=== PATIENT | female | born 1935 | race Caucasian/White ===

== ENCOUNTER 2021-01-06 05:05 | Outpatient (REF) | payer SELFPAY ==
[2021-01-06 05:26] LABS: Hematocrit 42.7 % (37-47); Hemoglobin 13.7 g/dl (12.0-16.0); Mean Corpuscular HGB Conc 32.1 g/dl (31.0-35.0); Mean Corpuscular Hemoglobin 29.4 pg (27.0-33.0); Mean Corpuscular Volume 91.6 fL (80-98); Mean Platelet Volume 9.9 fL (9.4-12.3); Platelet Count 196 X10*3/uL (160-400); Red Blood Count 4.66 X10*6/uL (4.20-5.50); Red Cell Distribution Width 16.3 % (11.0-16.0); White Blood Count 5.1 X10*3/uL (4.8-10.8)
[2021-01-06 06:06] LABS: Alanine Aminotransferase 29 U/L (0-31); Albumin Level 2.4 g/dL (3.5-5.0); Alkaline Phosphatase 118 U/L (39-117); Aspartate Amino Transferase 45 U/L (5-31); Bilirubin Total 0.8 mg/dL (0.0-1.0); Blood Urea Nitrogen 46 mg/dL (9-16); Calcium 8.7 mg/dL (8.4-10.2); Estimated Glomerular Filt Rate 39; Glucose Random 89 mg/dL (60-115); Total Protein 5.5 g/dL (6.5-8.0)
[2021-01-06 06:20] LABS: Anion Gap 10 (12-20); Carbon Dioxide 34 mmol/L (22-29); Chloride 102 mmol/L (96-108); Sodium 142 mmol/L (135-145)
== END 2021-01-06 05:06 | disposition home or self-care (01) ==
LOC: HO.MMNH1L 05:05
PROVIDERS: Visit Provider Family Medicine
DX: E78.5 Hyperlipidemia, unspecified (principal); F41.9 Anxiety disorder, unspecified
CPT/HCPCS: 36415; 80053; 85027

== ENCOUNTER 2021-01-09 00:37 | Outpatient (REF) | payer SELFPAY ==
[2021-01-09 06:10] LABS: Hemoglobin 14.5 g/dl (12.0-16.0); Mean Corpuscular HGB Conc 32.2 g/dl (31.0-35.0); Mean Corpuscular Hemoglobin 29.4 pg (27.0-33.0); Mean Corpuscular Volume 91.1 fL (80-98); Mean Platelet Volume 10.7 fL (9.4-12.3); Platelet Count 203 X10*3/uL (160-400); Red Blood Count 4.94 X10*6/uL (4.20-5.50); Red Cell Distribution Width 16.6 % (11.0-16.0); White Blood Count 6.2 X10*3/uL (4.8-10.8)
[2021-01-09 06:30] LABS: Anion Gap 10 (12-20); Blood Urea Nitrogen 33 mg/dL (9-16); Calcium 8.4 mg/dL (8.4-10.2); Carbon Dioxide 32 mmol/L (22-29); Chloride 103 mmol/L (96-108); Estimated Glomerular Filt Rate 47; Glucose Random 146 mg/dL (60-115); Potassium 4.1 mmol/L (3.3-5.1); Sodium 141 mmol/L (135-145)
== END 2021-01-09 00:38 | disposition home or self-care (01) ==
LOC: HO.MMNH1L 00:37
PROVIDERS: Visit Provider Family Medicine
DX: F41.9 Anxiety disorder, unspecified (principal); E78.5 Hyperlipidemia, unspecified
CPT/HCPCS: 36415; 80048; 85027

== ENCOUNTER 2021-03-27 | Outpatient (REF) | payer MEDICARE, MEDICAID, SELFPAY ==
[2021-03-27 06:22] LABS: Hematocrit 39.2 % (37-47); Hemoglobin 12.7 g/dl (12.0-16.0); Mean Corpuscular HGB Conc 32.4 g/dl (31.0-35.0); Mean Corpuscular Hemoglobin 33.4 pg (27.0-33.0); Mean Corpuscular Volume 103.2 fL (80-98); Mean Platelet Volume 10.2 fL (9.4-12.3); Platelet Count 238 X10*3/uL (160-400); Red Cell Distribution Width 18.3 % (11.0-16.0); White Blood Count 4.5 X10*3/uL (4.8-10.8)
[2021-03-27 07:06] LABS: Anion Gap 15 (12-20); Blood Urea Nitrogen 16 mg/dL (9-16); Calcium 8.8 mg/dL (8.4-10.2); Carbon Dioxide 23 mmol/L (22-29); Chloride 108 mmol/L (96-108); Estimated Glomerular Filt Rate 50; Glucose Random 179 mg/dL (60-115); Sodium 142 mmol/L (135-145)
== END 2021-03-27 00:01 | disposition home or self-care (01) ==
LOC: HO.MMNH1L
PROVIDERS: Visit Provider Family Medicine
DX: E11.9 Type 2 diabetes mellitus without complications (principal); I10 Essential (primary) hypertension
CPT/HCPCS: 36415; 80048; 85027

== ENCOUNTER 2021-04-03 00:31 | Outpatient (REF) | payer SELFPAY | END 2021-04-03 00:32 | disposition home or self-care (01) | LOC: HO.MMNH1L 00:31 | PROVIDERS: Visit Provider Family Medicine | DX: Z13.89 Encounter for screening for other disorder (principal) ==

== ENCOUNTER 2021-04-11 19:47 | Inpatient (IN) | payer MEDICARE, MEDICAID, SELFPAY ==
--- NOTE | ~2021-04-11 | CT_ITS ---
EXAMINATION: CT HEAD WITHOUT CONTRAST CT CERVICAL SPINE WITHOUT CONTRAST CLINICAL INFORMATION: Fall. On blood thinners. COMPARISON: None. TECHNIQUE: Imaging was performed from the skull base to vertex without intravenous administration of contrast. In addition, helical noncontrast CT imaging was acquired through the cervical spine and source images were reviewed along with axial reconstructions and sagittal and coronal MPRs. [This CT examination was performed using dose optimization techniques as appropriate, variously including the following: *Automated exposure control *Adjustment of mA and/or kV according to patient size (this includes techniques or standardized protocols for targeted exams where dose is matched to indication/reason for exam; i.e. extremities or head) *Use of iterative reconstruction technique] DLP: 791 mGy-cm FINDINGS: HEAD: No intracranial mass, hemorrhage, or midline shift is visualized. There is generalized global volume loss. There is marked prominence of the ventricles and the sulci . There is mild hypodensity of the periventricular white matter due to chronic small vessel ischemic disease. Small lacunar infarct in left periventricular white matter. There are vascular calcifications of the internal carotid arteries bilaterally. . No extra-axial collections are identified. The paranasal sinuses and mastoid air cells are well aerated. CERVICAL SPINE: There is no evidence of acute cervical spine fracture. Vertebral bodies remain normal in height. Cervical vertebrae have normal alignment. There is multilevel degenerative spondylosis of the cervical spine with disc height narrowing and endplate spurs and facet joint arthrosis No pre- or paravertebral soft tissue abnormality is identified. Limited assessment of the lung apices is unremarkable. CT/CT cervical spine wo con IMPRESSION: 1. No acute intracranial pathology. 2. No CT evidence of acute cervical spine fracture or traumatic subluxation
--- NOTE | ~2021-04-11 | XR_ITS ---
EXAMINATION: XR FOOT, RIGHT CLINICAL INFORMATION: Right dorsal surface foot bullae. COMPARISON: None TECHNIQUE: AP, lateral, and oblique views of the right foot. FINDINGS: There is a large dorsal foot cutaneous soft tissue focal swelling there is no underlying fracture or dislocation. The ankle mortise and subtalar joints are normal. There is a small calcaneal heel and retrocalcaneal enthesophytes. XR/XR foot RT min 3V IMPRESSION: Large bulla dorsal distal foot. No underlying bony abnormality. Small calcaneal heel and retrocalcaneal enthesophyte.
--- NOTE | ~2021-04-11 | XR_ITS ---
EXAMINATION: XR CHEST CLINICAL INFORMATION: Rales and edema. COMPARISON: Chest 04/18/2021. TECHNIQUE: Frontal view of the chest was obtained. FINDINGS: There is mild cardiomegaly with normal pulmonary vascularity. The lungs are hypoexpanded with bandlike atelectasis and left midlung and right lower lobe. There is solitary pacer electrode in right ventricle. No gross bony abnormality seen. XR/XR chest 1V IMPRESSION: Cardiomegaly. Bandlike atelectasis left midlung and likely compressive atelectasis right lower lobe.
--- NOTE | ~2021-04-11 | XR_ITS ---
EXAMINATION: CHEST, PELVIS AND RIGHT HIP CLINICAL INFORMATION: Fall with right leg rotation and short COMPARISON: None TECHNIQUE: Single view chest, single view pelvis with 2 additional views right FINDINGS: Pelvis and right hip: There is a transcervical fracture of the surgical neck of the right femur with varus angulation of the distal fracture fragment and superior subluxation. The femoral acetabular joint appears normal. Marked degenerative changes present at the pubic symphysis. No other fractures are seen. Chest: There is marked cardiac enlargement. Bilateral small pleural effusions may be present. A single lead pacemaker is present in the left chest with its tip at the right ventricular apex. No evidence of CHF. Left basilar atelectasis/collapse is present. Linear atelectasis noted in the left midlung. Marked degenerative changes present in the spine with compression fractures seen with vertebroplasty cement at T10. No acute osseous injury is seen. Probable chronic fracture right humerus. XR/XR hip RT min 2V IMPRESSION: 1. Transcervical fracture right femoral neck as described. 2. Cardiomegaly with possible bilateral pleural effusions and retrocardiac density with left mid lung atelectasis 3. Probable chronic fracture right humerus, incompletely imaged. If patient has symptoms, shoulder radiographs are recommended.
--- NOTE | ~2021-04-11 | XR_ITS ---
EXAMINATION: CHEST, PELVIS AND RIGHT HIP CLINICAL INFORMATION: Fall with right leg rotation and short COMPARISON: None TECHNIQUE: Single view chest, single view pelvis with 2 additional views right FINDINGS: Pelvis and right hip: There is a transcervical fracture of the surgical neck of the right femur with varus angulation of the distal fracture fragment and superior subluxation. The femoral acetabular joint appears normal. Marked degenerative changes present at the pubic symphysis. No other fractures are seen. Chest: There is marked cardiac enlargement. Bilateral small pleural effusions may be present. A single lead pacemaker is present in the left chest with its tip at the right ventricular apex. No evidence of CHF. Left basilar atelectasis/collapse is present. Linear atelectasis noted in the left midlung. Marked degenerative changes present in the spine with compression fractures seen with vertebroplasty cement at T10. No acute osseous injury is seen. Probable chronic fracture right humerus. XR/XR chest 1V IMPRESSION: 1. Transcervical fracture right femoral neck as described. 2. Cardiomegaly with possible bilateral pleural effusions and retrocardiac density with left mid lung atelectasis 3. Probable chronic fracture right humerus, incompletely imaged. If patient has symptoms, shoulder radiographs are recommended.
--- NOTE | ~2021-04-11 | XR_ITS ---
EXAMINATION: XR CHEST CLINICAL INFORMATION: Dyspnea COMPARISON: Previous chest x-ray 04/11/2020 TECHNIQUE: Frontal view of the chest was obtained. FINDINGS: The cardiac silhouette is enlarged but stable. There is a left subclavian single chamber pacemaker that appears unchanged. There is pulmonary venous redistribution, increased perihilar attenuation and bilateral pleural effusions suggestive of mild CHF. There is atelectasis or infiltrate at the left lung base that is unchanged. There is a right humeral neck fracture that appears unchanged. There are kyphoplasty changes of the lower thoracic spine. XR/XR chest 1V IMPRESSION: Probable mild CHF. Atelectasis/consolidation at the left lung base unchanged.
[2021-04-11 19:58] VITALS: BP 109/54; BP 99/48; PULSE 75; PULSE 76; RESP 12; O2SAT 94; BMI 24.8
[2021-04-11 20:16] VITALS: TEMP 36.7
--- NOTE | 2021-04-11 20:39 | PC.NURSE ---
This RN contacting [facility] for further information of fall on Saturday. This RN speaking with Mgean. Per Megan, pt came to LTC from another unit @ [facility] 2 days ago. Per Megan, she was told pt fell out of bed on Saturday @ 0500 but unknown how long she was on the floor for and/or what caused the fall. Per Megan, pt is usually able to stand/pivot but today was unable to do so so they XRayed her right leg and found her femur to be fractured. Per Megan, pt was not evaluated after the fall on Saturday. Per Megan, despite being on the LTC unit for 2 days, staff is unsure how pt communicates. Per staff, they don't know if pt has been verbal at all but states she makes gestures for example when she is ready to go to bed. This RN discussing fluid collection to right foot, per Megan, pt was noticed yesterday and she was started on Diuretics for it. This RN asking to speak with supervisor carbon paper coating to obtain more information from pt, per Megan, no supervisor carbon paper coating available to speak to.
--- NOTE | 2021-04-11 20:49 | PC.NURSE ---
Off to XRay/CT on hospital bed.
--- NOTE | 2021-04-11 20:53 | PC.NURSE ---
Contact: Irais Caro [phone]. Contact not answering phone, this RN left a messagee.
--- NOTE | 2021-04-11 20:57 | PC.NURSE ---
This RN contacting daughter Irais. Per daughter, pt was supposed to be transported to [facility], unknown why/how pt was transferred to [facility]. Per daughter, pt had a stroke in November and since then, has periods of confusion but does understand Citizen [place]. Per daughter, additional contact information, Dr Toan Marino (son in law) [phone].
--- NOTE | 2021-04-11 21:09 | PC.NURSE ---
Pt returns from XRay/CT on hospital bed without incident.
--- NOTE | 2021-04-11 21:30 | ECG_ITS ---
Test Reason : FALL Blood Pressure : / mmHG Vent. Rate : 076 BPM Atrial Rate : 069 BPM P-R Int : 000 ms QRS Dur : 070 ms QT Int : 408 ms P-R-T Axes : 000 -27 157 degrees QTc Int : 459 ms Atrial fibrillation with occasional ventricular-paced complexes Inferior infarct , age undetermined Anterior infarct , age undetermined Abnormal ECG No previous ECGs available Referred By: Thang Loya Electronically Signed By:TOMÁS TAYLOR
--- NOTE | 2021-04-11 21:39 | PHA.MEDREC ---
Pharmacy Consult ? Medication Reconciliation Pharmacy has completed the medication reconciliation. There are no remarkable issues for provider's attention. Patient arrived from [facility] with a medication list. Anjana Kirk, JoseD
--- NOTE | 2021-04-11 21:47 | PC.NURSE ---
IV established, labs obtained. MD at bedside for primary eval. technical programs manager at bedside for EKG. Plan for admission.
[2021-04-11 21:52] LABS: MANUAL DIFF FLAG NO
[2021-04-11 21:54] LABS: Basophils Percent Auto 0.6 % (0-2); Eosinophils Absolute Auto 0.1 X10*3/uL (0.0-0.4); Eosinophils Percent Auto 1.7 % (0-4); Hematocrit 33.3 % (37-47); Hemoglobin 10.7 g/dl (12.0-16.0); Imm Gran Abs Auto 0.01 X10*3/uL (0.00-0.03); Imm Gran Pct Auto 0.2 % (0.0-0.4); Lymphocytes Percent Auto 19.8 % (20-40); Mean Corpuscular HGB Conc 32.1 g/dl (31.0-35.0); Mean Corpuscular Hemoglobin 33.1 pg (27.0-33.0); Mean Corpuscular Volume 103.1 fL (80-98); Monocytes Absolute Auto 0.6 X10*3/uL (0.1-1.2); Monocytes Percent Auto 11.3 % (2-11); Neutrophils Absolute Auto 3.5 X10*3/uL (2.0-8.3); Neutrophils Percent Auto 66.4 % (45-73); Platelet Count 226 X10*3/uL (160-400); Red Blood Count 3.23 X10*6/uL (4.20-5.50); Red Cell Distribution Width 16.7 % (11.0-16.0); White Blood Count 5.2 X10*3/uL (4.8-10.8)
[2021-04-11 21:59] LABS: INTERNATIONAL NORM RATIO 2.4 (0.9-1.1); Prothrombin Time 27.7 SEC (9.9-13.0)
--- NOTE | 2021-04-11 22:01 | ED_ITS ---
HPI - Fall General Chief Complaint: Fall Stated Complaint: FALL/FEMUR FX Time Seen by Provider: 04/11/21 21:29 Source: RN notes reviewed Mode of arrival: EMS Limitations: altered mental status and other History of Present Illness HPI Narrative: Patient 85 years old from half-way on Eliquis apparently had unwitnessed fall 2 days ago today when they tried to stand her up she complained of pain in the right hip area x-ray was done which showed hip fracture. Not known whether she had any head injury or not no open wounds no change in sensorium patient understand Bengali but speaks only Tunisian Related Data Home Medications Medication Instructions Recorded Confirmed acetaminophen 500 mg tablet 500 mg PO Q8H PRN 04/11/21 04/11/21 apixaban 5 mg tablet (Eliquis) 5 mg PO BID 04/11/21 04/11/21 bisoprolol fumarate 5 mg tablet 1.25 mg PO DAILY 04/11/21 04/11/21 calcium carbonate 500 mg calcium 500 mg PO BID 04/11/21 04/11/21 (1,250 mg) tablet cholecalciferol (vitamin D3) 25 25 mcg PO DAILY 04/11/21 04/11/21 mcg (1,000 unit) tablet (Vitamin D3) insulin lispro 100 unit/mL See Protocol 04/11/21 04/11/21 subcutaneous pen levothyroxine 112 mcg tablet 112 mcg PO DAILY 04/11/21 04/11/21 magnesium oxide 400 mg PO BID 04/11/21 04/11/21 metformin 500 mg tablet 500 mg PO BID 04/11/21 04/11/21 miconazole nitrate 2 % topical 1 appl TOPICAL BID 04/11/21 04/11/21 cream ondansetron HCl 4 mg tablet 4 mg PO Q6H PRN 04/11/21 04/11/21 (Zofran) simvastatin 20 mg tablet 20 mg PO BEDTIME 04/11/21 04/11/21 sitagliptin 50 mg tablet (Januvia) 50 mg PO DAILY 04/11/21 04/11/21 torsemide 10 mg tablet 10 mg PO DAILY 04/11/21 04/11/21 Allergies Allergy/AdvReac Type Severity Reaction Status Date / Time No Known Allergies Allergy Verified 04/11/21 20:15 Review of Systems Review of Systems: Yes Unobtainable due to mental status PMFSH Past Medical History Medical History Atrial fibrillation CHF (congestive heart failure) Diabetes mellitus, type 2 Dysphagia Hypercholesteremia Hypertension Hypothyroidism Kidney disease Pacemaker Social History Social History Household Members: Other Housing: [facility] Unable to assess alcohol history related to: Unknown Patient Tobacco Use Status: Tobacco use Unknown Use of substances other than those prescribed or required for medical reasons: No Currently Displaying Signs/Symptoms of Drug Intoxication Withdrawal: No Advance Directives: No Do you have thoughts of harming others: None Do you have a plan to hurt others: No Plan Recently lost weight without trying: No Physical Exam Vital Signs: Vital Signs: Last Vital Signs Temp 96.9 F 04/12/21 00:00 Pulse 66 04/12/21 00:00 Resp 15 04/12/21 00:00 BP 111/95 H 04/12/21 00:00 Pulse Ox 90 L 04/12/21 00:00 Body Mass Index 24.8 Appearance: Alert. And awake No acute distress. Limited Carter speaking Eyes: PERRLA, no pallor or icterus ENT: Pharynx normal. Oral Mucosa moist Neck: Normal inspection. Neck supple. CVS: Irregular irregular heart rate, Pulses normal. Respiratory: No respiratory distress. Equal air entry bilateral, no wheezing/rales/rhonchi Abdomen: Soft and nontender. Bowel sounds are present, no mass palpable, Skin: Skin warm and dry. Ecchymosis right arm Extremities:2+ lower extremity edema. Right leg shortened and externally rotated with tenderness in the hip area. blister on the top of the dorsum of right foot with clear fluid right humerus with old fracture with limited abduction Neuro: Alert and awake. , moving her all 4 extremities limited movement on the right side secondary to humerus fracture and right hip fracture MDM - Fall MDM Narrative Medical decision making narrative: Patient with right femur transcervical neck fracture case discussed with orthopedics advised admit patient to medical service to stop Eliquis plan for surgery after medical clearance Medical Records Attestation: I reviewed the patient's medical records. Lab Data Attestation: I reviewed the patient's lab results. Result diagrams: 04/11/21 21:46 04/11/21 21:46 Labs: Lab Results 04/11/21 04/11/21 04/11/21 Range/Units 21:46 21:46 21:46 WBC 5.2 (4.8-10.8) X10*3/uL RBC 3.23 L (4.20-5.50) X10*6/uL Hgb 10.7 L (12.0-16.0) g/dl Hct 33.3 L (37-47) % MCV 103.1 H (80-98) fL MCH 33.1 H (27.0-33.0) pg MCHC 32.1 (31.0-35.0) g/dl RDW 16.7 H (11.0-16.0) % Plt Count 226 (160-400) X10*3/uL MPV 10.0 (9.4-12.3) fL Immature Gran % (Auto) 0.2 (0.0-0.4) % Neut % (Auto) 66.4 (45-73) % Lymph % (Auto) 19.8 L (20-40) % [place] % (Auto) 11.3 H (2-11) % Eos % (Auto) 1.7 (0-4) % Baso % (Auto) 0.6 (0-2) % Lymph # (Auto) 1.0 L (1.2-4.9) X10*3/uL [place] # (Auto) 0.6 (0.1-1.2) X10*3/uL Eos # (Auto) 0.1 (0.0-0.4) X10*3/uL Baso # (Auto) 0.0 (0.0-0.2) X10*3/uL Abs Immat Gran (auto) 0.01 (0.00-0.03) X10*3/uL Absolute Neuts (auto) 3.5 (2.0-8.3) X10*3/uL Absolute Nucleated RBC 0.000 (0.0-0.012) X10*3/uL Nucleated RBC % (auto) 0.0 (0.0-0.2) /100WBC PT 27.7 H (9.9-13.0) SEC INR 2.4 H (0.9-1.1) APTT 37.9 (24.1-38.0) SEC Sodium 139 (135-145) mmol/L Potassium 4.6 (3.3-5.1) mmol/L Chloride 102 (96-108) mmol/L Carbon Dioxide 26 (22-29) mmol/L Anion Gap 16 (12-20) BUN 19 H (9-16) mg/dL Creatinine 1.11 (0.5-1.4) mg/dL Estim Creat Clear Calc 35.9 Estimated GFR 47 Random Glucose 253 H (60-115) mg/dL Calcium 8.5 (8.4-10.2) mg/dL B-Natriuretic Peptide (<100) pg/mL Urine Color Urine Appearance Urine pH (5.0-8.0) Ur Specific [place] (1.005-1.025) Urine Protein (NEG-TRACE) MG/DL Urine Glucose (UA) (NEG) MG/DL Urine Ketones (NEG) MG/DL Urine Blood (NEG) Urine Nitrite (NEG) Ur Leukocyte Esterase (NEG) Urine RBC (0) /HPF Urine WBC (0-4) /HPF Ur Squamous Epith Cells /LPF Urine Bacteria /LPF Hyaline Casts /LPF COVID-19 (MAHAD) (Negative) COVID-19 Clin Com 04/11/21 04/11/21 04/11/21 Range/Units 21:46 21:46 22:32 WBC (4.8-10.8) X10*3/uL RBC (4.20-5.50) X10*6/uL Hgb (12.0-16.0) g/dl Hct (37-47) % MCV (80-98) fL MCH (27.0-33.0) pg MCHC (31.0-35.0) g/dl RDW (11.0-16.0) % Plt Count (160-400) X10*3/uL MPV (9.4-12.3) fL Immature Gran % (Auto) (0.0-0.4) % Neut % (Auto) (45-73) % Lymph % (Auto) (20-40) % [place] % (Auto) (2-11) % Eos % (Auto) (0-4) % Baso % (Auto) (0-2) % Lymph # (Auto) (1.2-4.9) X10*3/uL [place] # (Auto) (0.1-1.2) X10*3/uL Eos # (Auto) (0.0-0.4) X10*3/uL Baso # (Auto) (0.0-0.2) X10*3/uL Abs Immat Gran (auto) (0.00-0.03) X10*3/uL Absolute Neuts (auto) (2.0-8.3) X10*3/uL Absolute Nucleated RBC (0.0-0.012) X10*3/uL Nucleated RBC % (auto) (0.0-0.2) /100WBC PT (9.9-13.0) SEC INR (0.9-1.1) APTT (24.1-38.0) SEC Sodium (135-145) mmol/L Potassium (3.3-5.1) mmol/L Chloride (96-108) mmol/L Carbon Dioxide (22-29) mmol/L Anion Gap (12-20) BUN (9-16) mg/dL Creatinine (0.5-1.4) mg/dL Estim Creat Clear Calc Estimated GFR Random Glucose (60-115) mg/dL Calcium (8.4-10.2) mg/dL B-Natriuretic Peptide 1337 H (<100) pg/mL Urine Color YELLOW Urine Appearance CLEAR Urine pH 6.5 (5.0-8.0) Ur Specific [place] 1.010 (1.005-1.025) Urine Protein NEG (NEG-TRACE) MG/DL Urine Glucose (UA) NEG (NEG) MG/DL Urine Ketones NEG (NEG) MG/DL Urine Blood NEG (NEG) Urine Nitrite NEG (NEG) Ur Leukocyte Esterase NEG (NEG) Urine RBC 0-2 (0) /HPF Urine WBC 0-2 (0-4) /HPF Ur Squamous Epith Cells NONE /LPF Urine Bacteria NONE /LPF Hyaline Casts 10-14 /LPF COVID-19 (MAHAD) Negative (Negative) COVID-19 Clin Com See Note ECG Data Attestation: I personally reviewed and interpreted this ECG as follows: Interpretation: Atrial fibrillation ventricularly paced complexes poor progres nata of R-waves no acute ischemic changes Discharge Plan Discharge Clinical Impression: Femur fracture, right Qualifiers: Encounter type: initial encounter Femur location: base of neck Fracture type: closed Fracture alignment: nondisplaced Qualified Code(s): S72.044A - Nond isplaced fracture of base of neck of right femur, initial encounter for closed fracture Atrial fibrillation Qualifiers: Atrial fibrillation type: persistent (not longstanding) Qualified Code(s): I48.19 - Other persistent atrial fibrillation Patient Disposition: Admitted As Inpatient Interventions: Admission Worksheet (ED) Last Done: 04/12/21 00:56 Discharge Date/Time: 04/12/21 00:57
[2021-04-11 22:02] LABS: Partial Thromboplastin Time 37.9 SEC (24.1-38.0)
[2021-04-11 22:08] LABS: Anion Gap 16 (12-20); Blood Urea Nitrogen 19 mg/dL (9-16); Calcium 8.5 mg/dL (8.4-10.2); Carbon Dioxide 26 mmol/L (22-29); Chloride 102 mmol/L (96-108); Creatinine Clr Calc Pharmacy 35.9; Estimated Glomerular Filt Rate 47; Glucose Random 253 mg/dL (60-115); Potassium 4.6 mmol/L (3.3-5.1); Sodium 139 mmol/L (135-145)
[2021-04-11 22:09] LABS: COVID-19 Test Negative (Negative)
--- NOTE | 2021-04-11 22:26 | PC.NURSE ---
Moore catheter inserted. PT tolerating the procedure fairly. Urine output approximately 200 mL, yellow in color.
[2021-04-11 22:33] VITALS: BP 114/64; PULSE 75; RESP 16
[2021-04-11 22:42] LABS: Appearance Urine CLEAR; Color Urine YELLOW; Glucose Urine UA NEG (NEG); Leukocyte Esterase Urine NEG (NEG); Nitrite Urine NEG (NEG); PH 6.5 (5.0-8.0); Urine Blood NEG (NEG); Urine Ketones NEG (NEG); Urine Protein NEG (NEG-TRACE)
[2021-04-11 22:49] LABS: RBC Urine 0-2 /HPF (0); WBC Urine 0-2 /HPF (0-4)
--- NOTE | 2021-04-11 22:54 | P.HPHOSP_ITS ---
History of Present Illness Date of Service: 04/11/21 Chief Complaint: Fall 85-year-old female with a past medical history hypertension, hyperlipidemia, diabetes, CAD, CVA CHF AFib on Eliquis, hypothyroidism, dysphagia, chronic kidney disease, [place] [facility] resident, presented to the hospital with a chief complaint fall. History is limited as Patient is [place] speaking. Tried to use the iPad bee keeper services, no one was available on-call; try to find any general speaking staff no one available. Patient's follows simple commands intermittently says yes. could Not find any contact information for the next of kin. Reportedly patient had an unwitnessed fall at the [place] [facility]. Subsequently had an x-ray that showed fracture of the right femoral neck and was sent to the hospital for further evaluation. Denies any chest pain palpitations. Denies any shortness of breath. Denies any fever chills. Denies any GI or urinary symptoms. Review of all other systems is negative except mentioned above ER course: For ER team patient noted to right femoral fracture imaging; neurovascularly intact. Orthopedics team was notified. Requested admission to Medicine Service given other medical conditions. [facility] Medical History (Updated 04/25/21 @ 00:02 by Jacquelyn Argueta) Atrial fibrillation Atrial fibrillation Chronic systolic CHF (congestive heart failure) CKD (chronic kidney disease), stage III CVA (cerebral vascular accident) Diabetes mellitus, type 2 Dysphagia Femur fracture, right Hypercholesteremia Hypertension Hypothyroidism Pacemaker Pericardial effusion Persistent atrial fibrillation Presence of cardiac pacemaker Family History (Updated 04/12/21 @ 07:54 by Seamus Ceja MD) Mother CAD (coronary artery disease) Pertinent family history: reviewed Social History (Updated 04/12/21 @ 07:54 by Seamus Ceja MD) Household Members: Other Housing: Snf Unable to assess alcohol history related to: Unknown Alcohol intake: current Patient Tobacco Use Status: Tobacco use Unknown service: No Current occupational status: retired Meds Allergies Allergy/AdvReac Type Severity Reaction Status Date / Time No Known Allergies Allergy Verified 04/11/21 20:15 Active Medications: Current Medications Acetaminophen (Acetaminophen 325 Mg Tablet) 650 mg PO Q6H PRN PRN Reason: Pain, Mild (Pain Scale 1-3) Bisoprolol Fumarate (Bisoprolol Fumarate 5 Mg Tablet) 1.25 mg PO DAILY JYOTSNA Dextrose (Dextrose 50 % 25 Gm/50 Ml Vial) 25 gm IVPUSH Q15M PRN; Protocol PRN Reason: per Hypoglycemia Standing Ord. Glucose (Glucose Gel 15 Gm Gel..Gram.) 15 gm PO Q15M PRN; Protocol PRN Reason: per Hypoglycemia Standing Ord. Dextrose/Sodium Chloride (D51/2ns) 1,000 mls @ 50 mls/hr IVCONT .Q20H [facility] Insulin Human Lispro (Insulin Lispro 100 Unit/Ml 3 Ml Vial) 0 unit SUBCUT QIDACHS [facility]; Protocol Levothyroxine Sodium (Levothyroxine Sodium 112 Mcg Tablet) 112 mcg PO DAILY [facility] Magnesium Oxide (Magnesium Oxide 400 Mg Tablet) 400 mg PO BID [facility] Melatonin (Melatonin 3 Mg Tablet) 6 mg PO BEDTIME PRN PRN Reason: Insomnia Oxycodone HCl (Oxycodone Hcl Immed Release 5 Mg Tablet) 5 mg PO Q6H PRN PRN Reason: Pain, Severe (Pain Scale 7-10) Pharmacy Consult (Consult Rx Perform Med Rec) 1 each MISCELLANE ONCE PRN PRN Reason: Consult order Senna (Sennosides 8.6 Mg Tablet) 17.2 mg PO BEDTIME PRN PRN Reason: Constipation Sodium Chloride (0.9 % Sodium Chloride Flush 3 Ml Syringe) 3 ml IVFLUSH QSHIFT [facility] Vitamin D (Cholecalciferol (Vitamin D3) 25 Mcg Tablet) 25 mcg PO DAILY [facility] Home Medications Medication Instructions Recorded Confirmed Last Taken Type acetaminophen 500 mg tablet 500 mg PO Q8H PRN 04/11/21 04/11/21 Unknown History apixaban 5 mg tablet (Eliquis) 5 mg PO BID 04/11/21 04/11/21 Unknown History bisoprolol fumarate 5 mg tablet 1.25 mg PO DAILY 04/11/21 04/11/21 Unknown History calcium carbonate 500 mg calcium 500 mg PO BID 04/11/21 04/11/21 Unknown History (1,250 mg) tablet cholecalciferol (vitamin D3) 25 25 mcg PO DAILY 04/11/21 04/11/21 Unknown History mcg (1,000 unit) tablet (Vitamin D3) insulin lispro 100 unit/mL See Protocol 04/11/21 04/11/21 Unknown History subcutaneous pen magnesium oxide 400 mg PO BID 04/11/21 04/11/21 Unknown History metformin 500 mg tablet 500 mg PO BID 04/11/21 04/11/21 Unknown History miconazole nitrate 2 % topical 1 appl TOPICAL BID 04/11/21 04/11/21 Unknown History cream ondansetron HCl 4 mg tablet 4 mg PO Q6H PRN 04/11/21 04/11/21 Unknown History (Zofran) simvastatin 20 mg tablet 20 mg PO BEDTIME 04/11/21 04/11/21 Unknown History sitagliptin 50 mg tablet (Januvia) 50 mg PO DAILY 04/11/21 04/11/21 Unknown History torsemide 10 mg tablet 10 mg PO DAILY 04/11/21 04/11/21 Unknown History Physical Exam Vital Signs and Narrative: Vital Signs: Last Vital Signs Temp 98.0 F 04/11/21 20:16 Pulse 75 04/11/21 22:33 Resp 16 04/11/21 22:33 BP 114/64 04/11/21 22:33 Body Mass Index 24.8 Gen: Appears be in no acute distress HEENT: NCAT, Moist mucosa. Pulmonary: Vesicular breath sounds, fair air entry CVS: Normal S1-S2 Abdomen: BS+, Soft, Nontender Extremities: Warm well perfused; right lower extremity exam limited secondary to pain Neuro: Alert and awake. Results Labs CBC and Chem 7: 04/21/21 06:18 04/21/21 06:18 Labs: Laboratory Results - last 24 hr 04/11/21 04/11/21 04/11/21 21:46 21:46 21:46 MCV 103.1 H MCH 33.1 H MCHC 32.1 RDW 16.7 H Plt Count 226 MPV 10.0 Immature Gran % (Auto) 0.2 Neut % (Auto) 66.4 Lymph % (Auto) 19.8 L [place] % (Auto) 11.3 H Eos % (Auto) 1.7 Baso % (Auto) 0.6 Lymph # (Auto) 1.0 L [place] # (Auto) 0.6 Eos # (Auto) 0.1 Baso # (Auto) 0.0 Abs Immat Gran (auto) 0.01 Absolute Neuts (auto) 3.5 Absolute Nucleated RBC 0.000 Nucleated RBC % (auto) 0.0 PT 27.7 H INR 2.4 H APTT 37.9 Anion Gap 16 Estim Creat Clear Calc 35.9 Estimated GFR 47 Random Glucose 253 H Calcium 8.5 Urine Color Urine Appearance Urine pH Ur Specific [place] Urine Protein Urine Glucose (UA) Urine Ketones Urine Blood Urine Nitrite Ur Leukocyte Esterase Urine RBC Urine WBC Ur Squamous Epith Cells Urine Bacteria Hyaline Casts COVID-19 (MAHAD) COVID-19 Clin Com 04/11/21 04/11/21 21:46 22:32 MCV MCH MCHC RDW Plt Count MPV Immature Gran % (Auto) Neut % (Auto) Lymph % (Auto) [place] % (Auto) Eos % (Auto) Baso % (Auto) Lymph # (Auto) [place] # (Auto) Eos # (Auto) Baso # (Auto) Abs Immat Gran (auto) Absolute Neuts (auto) Absolute Nucleated RBC Nucleated RBC % (auto) PT INR APTT Anion Gap Estim Creat Clear Calc Estimated GFR Random Glucose Calcium Urine Color YELLOW Urine Appearance CLEAR Urine pH 6.5 Ur Specific [place] 1.010 Urine Protein NEG Urine Glucose (UA) NEG Urine Ketones NEG Urine Blood NEG Urine Nitrite NEG Ur Leukocyte Esterase NEG Urine RBC 0-2 Urine WBC 0-2 Ur Squamous Epith Cells NONE Urine Bacteria NONE Hyaline Casts 10-14 COVID-19 (MAHAD) Negative COVID-19 Clin Com See Note Imaging Radiologist's Impressions: Impressions Cervical Spine CT 04/11/21 21:00 IMPRESSION: 1. No acute intracranial pathology. 2. No CT evidence of acute cervical spine fracture or traumatic subluxation Head CT 04/11/21 21:00 IMPRESSION: 1. No acute intracranial pathology. 2. No CT evidence of acute cervical spine fracture or traumatic subluxation Chest X-Ray 04/11/21 21:05 IMPRESSION: 1. Transcervical fracture right femoral neck as described. 2. Cardiomegaly with possible bilateral pleural effusions and retrocardiac density with left mid lung atelectasis 3. Probable chronic fracture right humerus, incompletely imaged. If patient has symptoms, shoulder radiographs are recommended. Hip X-Ray 04/11/21 21:05 IMPRESSION: 1. Transcervical fracture right femoral neck as described. 2. Cardiomegaly with possible bilateral pleural effusions and retrocardiac density with left mid lung atelectasis 3. Probable chronic fracture right humerus, incompletely imaged. If patient has symptoms, shoulder radiographs are recommended. Assessment and Plan (1) Atrial fibrillation: Qualifiers: Atrial fibrillation type: persistent (not longstanding) Qualified Code(s): I48.19 - Other persistent atrial fibrillation (2) Femur fracture, right: Qualifiers: Encounter type: initial encounter Femur location: base of neck Fracture alignment: nondisplaced Fracture type: closed Qualified Code(s): S7 2.044A - Nondisplaced fracture of base of neck of right femur, initial encounter for closed fracture 85-year-old female with a past medical history hypertension, hyperlip idemia, diabetes, CAD, CHF AFib on Eliquis, hypothyroidism, dysphagia, chronic kidney disease, [place] [facility] resident, general speaking presented to the hospital with a chief complaint fall. Fall: Unwitnessed. CT head and CT cervical spine showed no acute findings. Grossly nonfocal. Fall precautions. History of CHF: Chest x-ray showed cardiomegaly/pleural effusions. Patient currently breathing comfortably. Will repeat echocardiogram. Will obtain proBNP and troponins. EKG nonischemic Cardiology consult/preop evaluation. Torsemide on hold patient is kept NPO. Right femoral neck fracture: Orthopedics team was notified. Pain controlled. Pending further inputs. Preop evaluation: Patient has high RCRI score. Patient is high risk for an intermediate risk surgery. Given cardiac history consulted Cardiology preop evaluation. Hold Eliquis in anticipation for procedure. Continue home beta-albino in the perioperative period. Routine pulmonary toileting in the perioperative period. Hypertension: Continue home bisoprolol Diabetes: Hold home metformin Januvia. Insulin sliding scale Hypothyroidism: Continue home levothyroxine History of dysphagia: Speech and swallow eval. History of CKD: Creatinine baseline. Code status: DNR/DNI. Patient has MOLST form Quality Stroke Does the patient have a stroke diagnosis?: No VTE Prior VTE?: No VTE Risk Level:: Medical - moderate - high VTE Device Contraindication: N/A - Device Ordered VTE Drug Contraindication: Treatment Not Indicated
[2021-04-11] MEDS: Dextrose 5 % and 0.45 % NaCl 1,000 ML 50 ML IVCONT (23:17)
[2021-04-11 23:26] LABS: B Type Natriuretic Peptide 1337 pg/mL (<100)
--- NOTE | 2021-04-11 23:27 | PC.NURSE ---
This RN called med surg to give transfer report. Med surg unable to take report at this time.
[2021-04-12] VITALS (10 sets, daily range): BP systolic 79–145; BP diastolic 45–95; PULSE 65–99; RESP 13–20; TEMP 35.9–36.4; O2SAT 90–94; BMI 22.8
--- NOTE | 2021-04-12 00:17 | PC.NURSE ---
Report given to Swati, plan for transport to floor.
[2021-04-12 01:53] LABS: Troponin-I High Sensitivity 31.3 ng/L (<3.5-17.0)
[2021-04-12 03:44] LABS: Glucose, Whole Blood 230 mg/dL (60-115)
[2021-04-12] MEDS: Levothyroxine Sodium 112 MCG TABLET PO (05:31)
[2021-04-12] MEDS: oxyCODONE HCl Immed Release 5 MG TABLET PO ×2 (05:31→13:55)
[2021-04-12 05:44] LABS: MANUAL DIFF FLAG NO
[2021-04-12 05:53] LABS: Basophils Percent Auto 0.7 % (0-2); Eosinophils Absolute Auto 0.1 X10*3/uL (0.0-0.4); Eosinophils Percent Auto 2.2 % (0-4); Hematocrit 32.4 % (37-47); Hemoglobin 10.4 g/dl (12.0-16.0); Imm Gran Abs Auto 0.01 X10*3/uL (0.00-0.03); Imm Gran Pct Auto 0.2 % (0.0-0.4); Lymphocytes Absolute Auto 0.9 X10*3/uL (1.2-4.9); Lymphocytes Percent Auto 20.2 % (20-40); Mean Corpuscular HGB Conc 32.1 g/dl (31.0-35.0); Mean Corpuscular Hemoglobin 32.9 pg (27.0-33.0); Mean Corpuscular Volume 102.5 fL (80-98); Monocytes Absolute Auto 0.5 X10*3/uL (0.1-1.2); Neutrophils Absolute Auto 2.9 X10*3/uL (2.0-8.3); Neutrophils Percent Auto 65.7 % (45-73); Platelet Count 236 X10*3/uL (160-400); Red Blood Count 3.16 X10*6/uL (4.20-5.50); Red Cell Distribution Width 16.3 % (11.0-16.0); White Blood Count 4.5 X10*3/uL (4.8-10.8)
[2021-04-12 06:15] LABS: Anion Gap 11 (12-20); Blood Urea Nitrogen 18 mg/dL (9-16); Calcium 8.4 mg/dL (8.4-10.2); Carbon Dioxide 29 mmol/L (22-29); Chloride 101 mmol/L (96-108); Creatinine Clr Calc Pharmacy 39.4; Estimated Glomerular Filt Rate 52; Glucose Random 263 mg/dL (60-115); Magnesium 1.9 mg/dL (1.6-2.6); Potassium 4.3 mmol/L (3.3-5.1); Sodium 137 mmol/L (135-145)
[2021-04-12 07:30] LABS: Glucose, Whole Blood 211 mg/dL (60-115)
--- NOTE | 2021-04-12 08:30 | CA_ITS ---
Transthoracic Echocardiogram Patient (Last, First, Middle): Zahida Caro, Gender: Female Date of : 1935 Age: 85 Procedure Date: 04/12/2021 Procedure Type: Transthoracic Echocardiogram Location: S3E Height: 157.48 cm Weight: 63.96 kg BSA: 1.65 m2 Heart Rate: bpm BP: 118 / 60 mmHg Scada Engineer: Referring MD: Thang Loya MD Symptoms: chf; cardiomegaly/pl effusions Study Quality: Fair ECG Rhythm: Sinus Conclusions: - Study incomplete and terminated early due to patient confusion and lack of co-operation. - The left ventricular systolic function is low normal. The visually estimated ejection fraction is between 50-55%. From available images, apical septum appears akinetic. - Severe biatrial enlargement. - There is moderate to severe tricuspid valve regurgitation. - Moderate to severe pulmonary hypertension is present. - There is a large loculated pericardial effusion overlying the left ventricle. Findings Left Ventricle Normal left ventricular cavity size. There is moderately increased left ventricular wall thickness. The left ventricular systolic function is low normal. The visually estimated ejection fraction is between 50-55%. Diastolic function is indeterminate on the basis of available data. Wall Motion Rest Echo Findings The apical septum is akinetic. Right Ventricle There is a pacemaker wire seen in the right ventricle. Atria Severe biatrial enlargement. Aortic Valve The aortic valve was not well visualized. There is no aortic valve stenosis. The mean gradient is 5 mmHg. There is mild aortic valve regurgitation. Mitral Valve The mitral valve appears normal. There is mild mitral annular calcification. There is trace mitral valve regurgitation. There is no mitral valve stenosis. Pulmonic Valve The pulmonic valve was not well visualized. Tricuspid Valve There is moderate to severe tricuspid valve regurgitation. Moderate to severe pulmonary hypertension is present. Calculated RVSP >60mmHg. Great Vessels The aorta was not well visualized. The aortic annulus, sinuses of valsalva, and sino tubular ridge are normal in size. Venous The inferior vena cava was not well visualized. Pericardium/Pleural There is a large loculated pericardial effusion overlying the left ventricle. Prior Study Comparison No prior study available for comparison. Measurements 2D Linear Measurements IVSd: 1.31 0.6-0.9/0.6-1.0 cm LVIDd: 3.72 3.9-5.3/4.2-5.9 cm LVIDd Index: 2.25 2.4-3.2/2.2-3.1 cm/m2 LVIDs: 2.83 2.0-3.6 cm LVPWd: 1.27 0.7-1.1 cm Ao Root: 3.50 2.1-3.5 cm LA Diam: 4.60 2.7-3.8/3.0-4.0 cm LAIDs Index: 2.79 1.5-2.3 cm/m2 LV Mass: 206.51 67-162/88-224 g LV Mass Index: 125.16 43-95/49-115 g/m2 LVOT Diam: 2.10 3.0+(-)1.3 cm 2D Systolic Function EF 4C: 55.00 >55% Mitral Valve MV Pk E: 0.73 MV Decel Time: 202.00 E'Lateral: 5.44 E'Medial: 4.46 E/E' Med: 16.40 E/E' Lat: 13.50 PHT: 59.00 MVA PHT: 3.73 Decel Alexander: 3.63 Aortic Valve AoV Pk Jose M: 1.73 AoV Mn Jose M: 1.03 AoV VTI: 0.27 AoV Pk Grad: 12.00 Aov Mn Grad: 5.00 ARIN Cont.VTI: 2.04 AI Pk Jose M: 3.37 AI Alexander: 1.37 LVOT LVOT Pk Jose M: 0.74 LVOT Mn Jose M: 0.47 LVOT VTI: 0.16 LVOT Pk Grad: 2.00 LVOT Mn Grad: 1.00 LVOT Diam: 2.10 LVOT Area: 3.46 Diastolic Function MV Pk E: 0.73 E'Medial: 4.46 E/E' Med: 16.40 E' Laterial: 5.44 E/E' Lat: 13.50 Great Vessels Aorta Ao Root-2D: 3.50 2.0-3.7 cm Pulmonary Valve PV Pk Jose M: 0.77 Peak PV Grad: 2.00 Updated in Other Vendor System with Status of Final Santos Peña MD electronically signed on 04/12/2021 11:48:32 AM with status of Final
[2021-04-12] MEDS: Insulin Lispro 100 UNIT/ML 3 ML VIAL SUBCUT (09:12)
--- NOTE | 2021-04-12 09:26 | HO.PM.IMPN ---
Subjective Subjective Date of Service: 04/12/21 Interval History: cc: right hip pain, inability to stand interval history: unable to obtain from patient Review of Systems Review of Systems: Yes Unobtainable due to mental condition Physical Exam Vital Signs: Vital Signs: Last Vital Signs Temp 96.8 F 04/12/21 07:16 Pulse 97 04/12/21 03:56 Resp 16 04/12/21 07:16 BP 110/62 04/12/21 03:56 Pulse Ox 90 L 04/12/21 00:00 Body Mass Index 22.8 General: lethargic, not responding to questions in [place]ian, does spontaneoulsy open eyes Resp: CTA bilateral, no accessory muscles used CVS: S1,S2,irregular GI: soft, non tender, non distended Neuro: moves all extremities Psych: impaired insight, flat affect Objective Data Active Medications Acetaminophen (Acetaminophen 325 Mg Tablet) 650 mg PO Q6H PRN PRN Reason: Pain, Mild (Pain Scale 1-3) Dextrose (Dextrose 50 % 25 Gm/50 Ml Vial) 25 gm IVPUSH Q15M PRN; Protocol PRN Reason: per Hypoglycemia Standing Ord. Glucose (Glucose Gel 15 Gm Gel..Gram.) 15 gm PO Q15M PRN; Protocol PRN Reason: per Hypoglycemia Standing Ord. Insulin Human Lispro (Insulin Lispro 100 Unit/Ml 3 Ml Vial) 0 unit SUBCUT QIDACHS [facility]; Protocol Last Admin: 04/12/21 09:12 Dose: 4 unit Documented by: MARSHA Levothyroxine Sodium (Levothyroxine Sodium 112 Mcg Tablet) 112 mcg PO DAILY@0600 [facility] Last Admin: 04/12/21 05:31 Dose: 112 mcg Documented by: DINORA Magnesium Oxide (Magnesium Oxide 400 Mg Tablet) 400 mg PO BID [facility] Last Admin: 04/12/21 09:15 Dose: Not Given Documented by: MARSHA Non-Admin Reason: Patient Refused Melatonin (Melatonin 3 Mg Tablet) 6 mg PO BEDTIME PRN PRN Reason: Insomnia Metoprolol Tartrate (Metoprolol Tartrate 12.5 Mg Halftab) 6.25 mg PO BID [facility] Last Admin: 04/12/21 09:16 Dose: Not Given Documented by: MARSHA Non-Admin Reason: Patient Refused Oxycodone HCl (Oxycodone Hcl Immed Release 5 Mg Tablet) 5 mg PO Q6H PRN PRN Reason: Pain, Severe (Pain Scale 7-10) Last Admin: 04/12/21 05:31 Dose: 5 mg Documented by: DINORA Pharmacy Consult (Consult Rx Perform Med Rec) 1 each MISCELLANE ONCE PRN PRN Reason: Consult order Senna (Sennosides 8.6 Mg Tablet) 17.2 mg PO BEDTIME PRN PRN Reason: Constipation Sodium Chloride (0.9 % Sodium Chloride Flush 3 Ml Syringe) 3 ml IVFLUSH QSHIFT [facility] Last Admin: 04/12/21 09:13 Dose: Not Given Documented by: MARSHA Non-Admin Reason: IV Running Torsemide (Torsemide 20 Mg Tablet) 10 mg PO DAILY [facility] Last Admin: 04/12/21 09:16 Dose: Not Given Documented by: MARSHA Non-Admin Reason: Patient Refused Vitamin D (Cholecalciferol (Vitamin D3) 25 Mcg Tablet) 25 mcg PO DAILY [facility] Last Admin: 04/12/21 09:15 Dose: Not Given Documented by: MARSHA Non-Admin Reason: Patient Refused Labs CBC & Chem 7: 04/12/21 05:13 04/12/21 05:13 Labs: Laboratory Results - last 24 hr 04/11/21 04/11/21 04/11/21 21:46 21:46 21:46 MCV 103.1 H MCH 33.1 H MCHC 32.1 RDW 16.7 H Plt Count 226 MPV 10.0 Immature Gran % (Auto) 0.2 Neut % (Auto) 66.4 Lymph % (Auto) 19.8 L [place] % (Auto) 11.3 H Eos % (Auto) 1.7 Baso % (Auto) 0.6 Lymph # (Auto) 1.0 L [place] # (Auto) 0.6 Eos # (Auto) 0.1 Baso # (Auto) 0.0 Abs Immat Gran (auto) 0.01 Absolute Neuts (auto) 3.5 Absolute Nucleated RBC 0.000 Nucleated RBC % (auto) 0.0 PT 27.7 H INR 2.4 H APTT 37.9 Anion Gap 16 Estim Creat Clear Calc 35.9 Estimated GFR 47 POC Glucose Random Glucose 253 H Calcium 8.5 Magnesium Troponin I High Sens B-Natriuretic Peptide Urine Color Urine Appearance Urine pH Ur Specific [place] Urine Protein Urine Glucose (UA) Urine Ketones Urine Blood Urine Nitrite Ur Leukocyte Esterase Urine RBC Urine WBC Ur Squamous Epith Cells Urine Bacteria Hyaline Casts COVID-19 (MAHAD) COVID-19 Clin Com 04/11/21 04/11/21 04/11/21 21:46 21:46 22:32 MCV MCH MCHC RDW Plt Count MPV Immature Gran % (Auto) Neut % (Auto) Lymph % (Auto) [place] % (Auto) Eos % (Auto) Baso % (Auto) Lymph # (Auto) [place] # (Auto) Eos # (Auto) Baso # (Auto) Abs Immat Gran (auto) Absolute Neuts (auto) Absolute Nucleated RBC Nucleated RBC % (auto) PT INR APTT Anion Gap Estim Creat Clear Calc Estimated GFR POC Glucose Random Glucose Calcium Magnesium Troponin I High Sens B-Natriuretic Peptide 1337 H Urine Color YELLOW Urine Appearance CLEAR Urine pH 6.5 Ur Specific [place] 1.010 Urine Protein NEG Urine Glucose (UA) NEG Urine Ketones NEG Urine Blood NEG Urine Nitrite NEG Ur Leukocyte Esterase NEG Urine RBC 0-2 Urine WBC 0-2 Ur Squamous Epith Cells NONE Urine Bacteria NONE Hyaline Casts 10-14 COVID-19 (MAHAD) Negative COVID-19 Clin Com See Note 04/12/21 04/12/21 04/12/21 01:08 01:12 02:40 MCV MCH MCHC RDW Plt Count MPV Immature Gran % (Auto) Neut % (Auto) Lymph % (Auto) [place] % (Auto) Eos % (Auto) Baso % (Auto) Lymph # (Auto) [place] # (Auto) Eos # (Auto) Baso # (Auto) Abs Immat Gran (auto) Absolute Neuts (auto) Absolute Nucleated RBC Nucleated RBC % (auto) PT INR APTT Anion Gap Estim Creat Clear Calc Estimated GFR POC Glucose 230 H Random Glucose Calcium Magnesium Troponin I High Sens 31.3 H* 25.0 H* B-Natriuretic Peptide Urine Color Urine Appearance Urine pH Ur Specific [place] Urine Protein Urine Glucose (UA) Urine Ketones Urine Blood Urine Nitrite Ur Leukocyte Esterase Urine RBC Urine WBC Ur Squamous Epith Cells Urine Bacteria Hyaline Casts COVID-19 (MAHAD) COVID-19 Clin Com 04/12/21 04/12/21 04/12/21 05:13 05:13 07:23 MCV 102.5 H MCH 32.9 MCHC 32.1 RDW 16.3 H Plt Count 236 MPV 10.0 Immature Gran % (Auto) 0.2 Neut % (Auto) 65.7 Lymph % (Auto) 20.2 [place] % (Auto) 11.0 Eos % (Auto) 2.2 Baso % (Auto) 0.7 Lymph # (Auto) 0.9 L [place] # (Auto) 0.5 Eos # (Auto) 0.1 Baso # (Auto) 0.0 Abs Immat Gran (auto) 0.01 Absolute Neuts (auto) 2.9 Absolute Nucleated RBC 0.000 Nucleated RBC % (auto) 0.0 PT INR APTT Anion Gap 11 L Estim Creat Clear Calc 39.4 Estimated GFR 52 POC Glucose 211 H Random Glucose 263 H Calcium 8.4 Magnesium 1.9 Troponin I High Sens B-Natriuretic Peptide Urine Color Urine Appearance Urine pH Ur Specific [place] Urine Protein Urine Glucose (UA) Urine Ketones Urine Blood Urine Nitrite Ur Leukocyte Esterase Urine RBC Urine WBC Ur Squamous Epith Cells Urine Bacteria Hyaline Casts COVID-19 (MAHAD) COVID-19 Clin Com Assessment and Plan (1) Chronic systolic CHF (congestive heart failure): Status: Acute (2) Femur fracture, right: Status: Acute (3) Atrial fibrillation: Status: Acute (4) Diabetes mellitus, type 2: Status: Acute (5) Hypothyroidism: Status: Acute Assessment and Plan: 85F presented with inability to stand due to right hip fracture from fall right hip fracture holding eliquis for surgery potentially on saturday cardio eval for preop assessment chronic systolic chf torsemide, metoprolol permanent atrial fibrillation metoprolol eliquis on hold for potential surgery history of CVA with residual dysphagia, dysarthria, ?mild right hemiparesis NDD2 solids, nectar thick liquids holding eliquis continue statin DM insulin, monitor poc CKD III stable, monitor bmp hypothyroid synthroid DNR/DNI Quality Stroke Does the patient have a stroke diagnosis?: No VTE Prior VTE?: No VTE Risk Level:: Medical - moderate - high VTE Device Contraindication: Treatment Not Indicated VTE Drug Contraindication: N/A - Med Ordered
--- NOTE | 2021-04-12 10:05 | P.CONCA_ITS ---
History of Present Illness History of Present Illness Date of Service: 04/12/21 Chief complaint: Unwitnessed fall Narrative: This is a cardiology consultation regarding preoperative risk str atification for hip surgery. Patient apparently Czech speaking only. Tried to communicate with her using Czech unstacker but in spite of this not able to get any information at all. Patient clearly seems confused and not able to offer any history whatsoever. Based on the H and P which is also limited, it seems that she was sent from skilled nursing with a fall and found to have femur fracture. Recent [facility] discharge summary was reviewed. According to this, there his description of chronic heart failure with reduced ejection fraction, atrial fibrillation, pericardial effusion status post pericardiocentesis in February. Review of Systems Review of Systems: Unable to obtain review of systems as she is confused. [facility] Past Medical History Medical History (Updated 04/12/21 @ 10:17 by Santos Peña MD) Atrial fibrillation Chronic systolic CHF (congestive heart failure) CKD (chronic kidney disease), stage III CVA (cerebral vascular accident) Diabetes mellitus, type 2 Dysphagia Hypercholesteremia Hypertension Hypothyroidism Pacemaker Pericardial effusion Family History Family History (Updated 04/12/21 @ 07:54 by Seamus Ceja MD) Mother CAD (coronary artery disease) Social History Social History (Updated 04/12/21 @ 07:54 by Seamus Ceja MD) Household Members: Other Housing: [facility] Unable to assess alcohol history related to: Unknown Alcohol intake: current Patient Tobacco Use Status: Tobacco use Unknown Use of substances other than those prescribed or required for medical reasons: No Currently Displaying Signs/Symptoms of Drug Intoxication Withdrawal: No Advance Directives: No Do you have thoughts of harming others: None Do you have a plan to hurt others: No Plan Recently lost weight without trying: No Meds Allergies Allergy/AdvReac Type Severity Reaction Status Date / Time No Known Allergies Allergy Verified 04/11/21 20:15 Active Medications: Current Medications Acetaminophen (Acetaminophen 325 Mg Tablet) 650 mg PO Q6H PRN PRN Reason: Pain, Mild (Pain Scale 1-3) Atorvastatin Calcium (Atorvastatin Calcium 10 Mg Tablet) 10 mg PO BEDTIME JYOTSNA Dextrose (Dextrose 50 % 25 Gm/50 Ml Vial) 25 gm IVPUSH Q15M PRN; Protocol PRN Reason: per Hypoglycemia Standing Ord. Enoxaparin Sodium (Enoxaparin Sodium 40 Mg/0.4 Ml Syringe) 40 mg SUBCUT Q24H [facility] Glucose (Glucose Gel 15 Gm Gel..Gram.) 15 gm PO Q15M PRN; Protocol PRN Reason: per Hypoglycemia Standing Ord. Insulin Human Lispro (Insulin Lispro 100 Unit/Ml 3 Ml Vial) 0 unit SUBCUT QIDACHS [facility]; Protocol Last Admin: 04/12/21 09:12 Dose: 4 unit Documented by: Levothyroxine Sodium (Levothyroxine Sodium 112 Mcg Tablet) 112 mcg PO DAILY@0600 [facility] Last Admin: 04/12/21 05:31 Dose: 112 mcg Documented by: Magnesium Oxide (Magnesium Oxide 400 Mg Tablet) 400 mg PO BID [facility] Last Admin: 04/12/21 09:15 Dose: Not Given Documented by: Melatonin (Melatonin 3 Mg Tablet) 6 mg PO BEDTIME PRN PRN Reason: Insomnia Metoprolol Tartrate (Metoprolol Tartrate 12.5 Mg Halftab) 6.25 mg PO BID [facility] Last Admin: 04/12/21 09:16 Dose: Not Given Documented by: Oxycodone HCl (Oxycodone Hcl Immed Release 5 Mg Tablet) 5 mg PO Q6H PRN PRN Reason: Pain, Severe (Pain Scale 7-10) Last Admin: 04/12/21 05:31 Dose: 5 mg Documented by: Pharmacy Consult (Consult Rx Perform Med Rec) 1 each MISCELLANE ONCE PRN PRN Reason: Consult order Senna (Sennosides 8.6 Mg Tablet) 17.2 mg PO BEDTIME PRN PRN Reason: Constipation Sodium Chloride (0.9 % Sodium Chloride Flush 3 Ml Syringe) 3 ml IVFLUSH QSHIFT [facility] Last Admin: 04/12/21 09:13 Dose: Not Given Documented by: Torsemide (Torsemide 20 Mg Tablet) 10 mg PO DAILY [facility] Last Admin: 04/12/21 09:16 Dose: Not Given Documented by: Vitamin D (Cholecalciferol (Vitamin D3) 25 Mcg Tablet) 25 mcg PO DAILY [facility] Last Admin: 04/12/21 09:15 Dose: Not Given Documented by: Home Medications Medication Instructions Recorded Confirmed Last Taken Type acetaminophen 500 mg tablet 500 mg PO Q8H PRN 04/11/21 04/11/21 Unknown History apixaban 5 mg tablet (Eliquis) 5 mg PO BID 04/11/21 04/11/21 Unknown History bisoprolol fumarate 5 mg tablet 1.25 mg PO DAILY 04/11/21 04/11/21 Unknown History calcium carbonate 500 mg calcium 500 mg PO BID 04/11/21 04/11/21 Unknown History (1,250 mg) tablet cholecalciferol (vitamin D3) 25 25 mcg PO DAILY 04/11/21 04/11/21 Unknown History mcg (1,000 unit) tablet (Vitamin D3) insulin lispro 100 unit/mL See Protocol 04/11/21 04/11/21 Unknown History subcutaneous pen levothyroxine 112 mcg tablet 112 mcg PO DAILY 04/11/21 04/11/21 Unknown History magnesium oxide 400 mg PO BID 04/11/21 04/11/21 Unknown History metformin 500 mg tablet 500 mg PO BID 04/11/21 04/11/21 Unknown History miconazole nitrate 2 % topical 1 appl TOPICAL BID 04/11/21 04/11/21 Unknown History cream ondansetron HCl 4 mg tablet 4 mg PO Q6H PRN 04/11/21 04/11/21 Unknown History (Mellyan) simvastatin 20 mg tablet 20 mg PO BEDTIME 04/11/21 04/11/21 Unknown History sitagliptin 50 mg tablet (Januvia) 50 mg PO DAILY 04/11/21 04/11/21 Unknown History torsemide 10 mg tablet 10 mg PO DAILY 04/11/21 04/11/21 Unknown History Physical Exam Vital Signs: Vital Signs: Last Vital Signs Temp 96.8 F 04/12/21 07:16 Pulse 97 04/12/21 03:56 Resp 16 04/12/21 07:16 BP 110/62 04/12/21 03:56 Pulse Ox 90 L 04/12/21 00:00 Body Mass Index 22.8 Const: Other: confused HENMT: Other: Unremarkable Neck: Neck: Yes normal visual inspection Chest: Chest palpation & inspection: normal inspection of the chest Resp: Other: poor respiratory effort to clearly examine Cardio: Jugular venous distension: no JVD Palpation: normal PMI Heart sounds: S1 normal heart sound present, S2 normal heart sound present, no gallops, Murmur heart sound present (1/6 BENNIE aortic area) and no rubs GI: Palpation (GI): Soft to palpation Back/Spine/Pelvis: Other: unremarkable Skin: General skin exam: no rashes or lesions noted Neuro: Cranial nerves: Yes Other cranial nerve findings present Extrem: General: Yes no clubbing, cyanosis or edema Psych: Mental Status: other Results Labs and Meds Result diagrams: 04/12/21 05:13 04/12/21 05:13 Lab results: Laboratory Results - last 24 hr 04/11/21 04/11/21 04/11/21 21:46 21:46 21:46 WBC 5.2 RBC 3.23 L Hgb 10.7 L Hct 33.3 L MCV 103.1 H MCH 33.1 H MCHC 32.1 RDW 16.7 H Plt Count 226 MPV 10.0 Immature Gran % (Auto) 0.2 Neut % (Auto) 66.4 Lymph % (Auto) 19.8 L Pettis % (Auto) 11.3 H Eos % (Auto) 1.7 Baso % (Auto) 0.6 Lymph # (Auto) 1.0 L Pettis # (Auto) 0.6 Eos # (Auto) 0.1 Baso # (Auto) 0.0 Abs Immat Gran (auto) 0.01 Absolute Neuts (auto) 3.5 Absolute Nucleated RBC 0.000 Nucleated RBC % (auto) 0.0 PT 27.7 H INR 2.4 H APTT 37.9 Sodium 139 Potassium 4.6 Chloride 102 Carbon Dioxide 26 Anion Gap 16 BUN 19 H Creatinine 1.11 Estim Creat Clear Calc 35.9 Estimated GFR 47 POC Glucose Random Glucose 253 H Calcium 8.5 Magnesium Troponin I High Sens B-Natriuretic Peptide Urine Color Urine Appearance Urine pH Ur Specific [place] Urine Protein Urine Glucose (UA) Urine Ketones Urine Blood Urine Nitrite Ur Leukocyte Esterase Urine RBC Urine WBC Ur Squamous Epith Cells Urine Bacteria Hyaline Casts COVID-19 ([facility]) COVID-19 Clin Com 04/11/21 04/11/21 04/11/21 21:46 21:46 22:32 WBC RBC Hgb Hct MCV MCH MCHC RDW Plt Count MPV Immature Gran % (Auto) Neut % (Auto) Lymph % (Auto) Pettis % (Auto) Eos % (Auto) Baso % (Auto) Lymph # (Auto) Pettis # (Auto) Eos # (Auto) Baso # (Auto) Abs Immat Gran (auto) Absolute Neuts (auto) Absolute Nucleated RBC Nucleated RBC % (auto) PT INR APTT Sodium Potassium Chloride Carbon Dioxide Anion Gap BUN Creatinine Estim Creat Clear Calc Estimated GFR POC Glucose Random Glucose Calcium Magnesium Troponin I High Sens B-Natriuretic Peptide 1337 H Urine Color YELLOW Urine Appearance CLEAR Urine pH 6.5 Ur Specific Len[place] 1.010 Urine Protein NEG Urine Glucose (UA) NEG Urine Ketones NEG Urine Blood NEG Urine Nitrite NEG Ur Leukocyte Esterase NEG Urine RBC 0-2 Urine WBC 0-2 Ur Squamous Epith Cells NONE Urine Bacteria NONE Hyaline Casts 10-14 COVID-19 ([facility]HAD) Negative COVID-19 Clin Com See Note 04/12/21 04/12/21 04/12/21 01:08 01:12 02:40 WBC RBC Hgb Hct MCV MCH MCHC RDW Plt Count MPV Immature Gran % (Auto) Neut % (Auto) Lymph % (Auto) Pettis % (Auto) Eos % (Auto) Baso % (Auto) Lymph # (Auto) Pettis # (Auto) Eos # (Auto) Baso # (Auto) Abs Immat Gran (auto) Absolute Neuts (auto) Absolute Nucleated RBC Nucleated RBC % (auto) PT INR APTT Sodium Potassium Chloride Carbon Dioxide Anion Gap BUN Creatinine Estim Creat Clear Calc Estimated GFR POC Glucose 230 H Random Glucose Calcium Magnesium Troponin I High Sens 31.3 H* 25.0 H* B-Natriuretic Peptide Urine Color Urine Appearance Urine pH Ur Specific [place] Urine Protein Urine Glucose (UA) Urine Ketones Urine Blood Urine Nitrite Ur Leukocyte Esterase Urine RBC Urine WBC Ur Squamous Epith Cells Urine Bacteria Hyaline Casts COVID-19 ([facility]HAD) COVID-19 Clin Com 04/12/21 04/12/21 04/12/21 05:13 05:13 07:23 WBC 4.5 L RBC 3.16 L Hgb 10.4 L Hct 32.4 L MCV 102.5 H MCH 32.9 MCHC 32.1 RDW 16.3 H Plt Count 236 MPV 10.0 Immature Gran % (Auto) 0.2 Neut % (Auto) 65.7 Lymph % (Auto) 20.2 Pettis % (Auto) 11.0 Eos % (Auto) 2.2 Baso % (Auto) 0.7 Lymph # (Auto) 0.9 L Pettis # (Auto) 0.5 Eos # (Auto) 0.1 Baso # (Auto) 0.0 Abs Immat Gran (auto) 0.01 Absolute Neuts (auto) 2.9 Absolute Nucleated RBC 0.000 Nucleated RBC % (auto) 0.0 PT INR APTT Sodium 137 Potassium 4.3 Chloride 101 Carbon Dioxide 29 Anion Gap 11 L BUN 18 H Creatinine 1.01 Estim Creat Clear Calc 39.4 Estimated GFR 52 POC Glucose 211 H Random Glucose 263 H Calcium 8.4 Magnesium 1.9 Troponin I High Sens B-Natriuretic Peptide Urine Color Urine Appearance Urine pH Ur Specific [place] Urine Protein Urine Glucose (UA) Urine Ketones Urine Blood Urine Nitrite Ur Leukocyte Esterase Urine RBC Urine WBC Ur Squamous Epith Cells Urine Bacteria Hyaline Casts COVID-19 ([facility]HAD) COVID-19 Clin Com ECG Interpretation: EKG shows atrial fibrillation with rate of 76/Min; occasional ventricular pacing. Imaging Radiologist's impression: Impressions Cervical Spine CT 04/11/21 21:00 IMPRESSION: 1. No acute intracranial pathology. 2. No CT evidence of acute cervical spine fracture or traumatic subluxation Head CT 04/11/21 21:00 IMPRESSION: 1. No acute intracranial pathology. 2. No CT evidence of acute cervical spine fracture or traumatic subluxation Chest X-Ray 04/11/21 21:05 IMPRESSION: 1. Transcervical fracture right femoral neck as described. 2. Cardiomegaly with possible bilateral pleural effusions and retrocardiac density with left mid lung atelectasis 3. Probable chronic fracture right humerus, incompletely imaged. If patient has symptoms, shoulder radiographs are recommended. Hip X-Ray 04/11/21 21:05 IMPRESSION: 1. Transcervical fracture right femoral neck as described. 2. Cardiomegaly with possible bilateral pleural effusions and retrocardiac density with left mid lung atelectasis 3. Probable chronic fracture right humerus, incompletely imaged. If patient has symptoms, shoulder radiographs are recommended. Assessment and Plan (1) Preoperative cardiovascular examination: Status: Acute (2) Chronic systolic CHF (congestive heart failure): Status: Acute (3) Persistent atrial fibrillation: Status: Acute (4) Pericardial effusion: Status: Acute (5) Presence of cardiac pacemaker: Status: Acute Multiple multiple cardiac as well as medical comorbidities. She is also quite confused and hence no information could be obtained. Will review the echocardiogram performed today. Slight troponin leak was noted. Possibly demand related. Elevated cardiac BNP also noted, likely related to heart failure history. Will try to review more information from [facility] as it seems that she underwent pericardiocentesis in February. Unknown coronary status. Overall, she is considered to be at high cardiac risk for hip surgery. This is unmodifiable. Procedures Date of Service Date of Service: 04/12/21
--- NOTE | 2021-04-12 10:38 | PM.HPOR ---
History of Present Illness History of Present Illness Date of Service: 04/12/21 Chief complaint: Unwitnessed fall Narrative: Zahida Caro is a 85 year old female who sustained a mechanical fall about 3 days ago in her home. she has a past medical history significant for a. fib on Eliquis, CAD, CHF, a pacemaker, and DMII. The patient continued to have difficulty with ambulation and pain and presented to the ED. X-rays were obtained of the right hip and she was found to have a femoral neck fracture. She was then admited to the medicine service and orthopedics was consulted for further evaluation and treatment. Review of Systems Review of Systems: Yes all other systems are reviewed and are negative [facility] Past Medical History Medical History (Updated 04/12/21 @ 14:02 by Mandy Dockery PA-C) Atrial fibrillation Chronic systolic CHF (congestive heart failure) CKD (chronic kidney disease), stage III CVA (cerebral vascular accident) Diabetes mellitus, type 2 Dysphagia Hypercholesteremia Hypertension Hypothyroidism Pacemaker Pericardial effusion Family History Family History (Updated 04/12/21 @ 07:54 by Seamus Ceja MD) Mother CAD (coronary artery disease) Social History Social History (Updated 04/12/21 @ 07:54 by Seamus Ceja MD) Household Members: Other Housing: [place] Unable to assess alcohol history related to: Unknown Alcohol intake: current Patient Tobacco Use Status: Tobacco use Unknown Use of substances other than those prescribed or required for medical reasons: No Currently Displaying Signs/Symptoms of Drug Intoxication Withdrawal: No Advance Directives: No Do you have thoughts of harming others: None Do you have a plan to hurt others: No Plan Recently lost weight without trying: No Meds Allergies Allergy/AdvReac Type Severity Reaction Status Date / Time No Known Allergies Allergy Verified 04/11/21 20:15 Active Medications: Current Medications Acetaminophen (Acetaminophen 325 Mg Tablet) 650 mg PO Q6H PRN PRN Reason: Pain, Mild (Pain Scale 1-3) Atorvastatin Calcium (Atorvastatin Calcium 10 Mg Tablet) 10 mg PO BEDTIME JYOTSNA Dextrose (Dextrose 50 % 25 Gm/50 Ml Vial) 25 gm IVPUSH Q15M PRN; Protocol PRN Reason: per Hypoglycemia Standing Ord. Enoxaparin Sodium (Enoxaparin Sodium 40 Mg/0.4 Ml Syringe) 40 mg SUBCUT Q24H JYOTSNA Glucose (Glucose Gel 15 Gm Gel..Gram.) 15 gm PO Q15M PRN; Protocol PRN Reason: per Hypoglycemia Standing Ord. Insulin Human Lispro (Insulin Lispro 100 Unit/Ml 3 Ml Vial) 0 unit SUBCUT QIDACHS [facility]; Protocol Last Admin: 04/12/21 09:12 Dose: 4 unit Documented by: Levothyroxine Sodium (Levothyroxine Sodium 112 Mcg Tablet) 112 mcg PO DAILY@0600 [facility] Last Admin: 04/12/21 05:31 Dose: 112 mcg Documented by: Magnesium Oxide (Magnesium Oxide 400 Mg Tablet) 400 mg PO BID [facility] Last Admin: 04/12/21 09:15 Dose: Not Given Documented by: Melatonin (Melatonin 3 Mg Tablet) 6 mg PO BEDTIME PRN PRN Reason: Insomnia Metoprolol Tartrate (Metoprolol Tartrate 12.5 Mg Halftab) 6.25 mg PO BID [facility] Last Admin: 04/12/21 09:16 Dose: Not Given Documented by: Oxycodone HCl (Oxycodone Hcl Immed Release 5 Mg Tablet) 5 mg PO Q6H PRN PRN Reason: Pain, Severe (Pain Scale 7-10) Last Admin: 04/12/21 05:31 Dose: 5 mg Documented by: Pharmacy Consult (Consult Rx Perform Med Rec) 1 each MISCELLANE ONCE PRN PRN Reason: Consult order Senna (Sennosides 8.6 Mg Tablet) 17.2 mg PO BEDTIME PRN PRN Reason: Constipation Sodium Chloride (0.9 % Sodium Chloride Flush 3 Ml Syringe) 3 ml IVFLUSH QSHIFT [facility] Last Admin: 04/12/21 09:13 Dose: Not Given Documented by: Torsemide (Torsemide 20 Mg Tablet) 10 mg PO DAILY [facility] Last Admin: 04/12/21 09:16 Dose: Not Given Documented by: Vitamin D (Cholecalciferol (Vitamin D3) 25 Mcg Tablet) 25 mcg PO DAILY [facility] Last Admin: 04/12/21 09:15 Dose: Not Given Documented by: Home Medications Medication Instructions Recorded Confirmed Last Taken Type acetaminophen 500 mg tablet 500 mg PO Q8H PRN 04/11/21 04/11/21 Unknown History apixaban 5 mg tablet (Eliquis) 5 mg PO BID 04/11/21 04/11/21 Unknown History bisoprolol fumarate 5 mg tablet 1.25 mg PO DAILY 04/11/21 04/11/21 Unknown History calcium carbonate 500 mg calcium 500 mg PO BID 04/11/21 04/11/21 Unknown History (1,250 mg) tablet cholecalciferol (vitamin D3) 25 25 mcg PO DAILY 04/11/21 04/11/21 Unknown History mcg (1,000 unit) tablet (Vitamin D3) insulin lispro 100 unit/mL See Protocol 04/11/21 04/11/21 Unknown History subcutaneous pen levothyroxine 112 mcg tablet 112 mcg PO DAILY 04/11/21 04/11/21 Unknown History magnesium oxide 400 mg PO BID 04/11/21 04/11/21 Unknown History metformin 500 mg tablet 500 mg PO BID 04/11/21 04/11/21 Unknown History miconazole nitrate 2 % topical 1 appl TOPICAL BID 04/11/21 04/11/21 Unknown History cream ondansetron HCl 4 mg tablet 4 mg PO Q6H PRN 04/11/21 04/11/21 Unknown History (Zofran) simvastatin 20 mg tablet 20 mg PO BEDTIME 04/11/21 04/11/21 Unknown History sitagliptin 50 mg tablet (Januvia) 50 mg PO DAILY 04/11/21 04/11/21 Unknown History torsemide 10 mg tablet 10 mg PO DAILY 04/11/21 04/11/21 Unknown History Physical Exam Vital Signs: Vital Signs: Last Vital Signs Temp 96.8 F 04/12/21 07:16 Pulse 97 04/12/21 03:56 Resp 16 04/12/21 07:16 BP 110/62 04/12/21 03:56 Pulse Ox 90 L 04/12/21 00:00 Body Mass Index 22.8 Const: General: cooperative, healthy appearing and no acute distress Orientation/consciousness: patient oriented x3 HENMT: Head: Yes normal to inspection, Yes normocephalic and Yes atraumatic Eyes: General: appearance normal, both eyes and all related structures Neck: Neck: Yes normal visual inspection and Yes no lymphadenopathy Resp: Effort & Inspection: normal respiratory effort and able to speak in complete sentences Cardio: Rate: regular rate Peripheral pulses: Peripheral pulses 2+ throughout GI: Inspection: Yes normal to inspection Palpation (GI): Soft to palpation Skin: General skin exam: no rashes or lesions noted Lesions: no lesions Rashes: no rashes Neuro: General: patient oriented x3 Extrem: Other: Right hip no ecchymosis or redness. Skin intact with no lesions or abrasions. Pain with log roll. NVI. 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 Psych: Mental Status: mental status grossly normal Results Labs Result Diagrams: 04/12/21 05:13 04/12/21 05:13 Labs: Abnormal lab results 04/11/21 04/11/21 04/11/21 Range/Units 21:46 21:46 21:46 WBC (4.8-10.8) X10*3/uL RBC 3.23 L (4.20-5.50) X10*6/uL Hgb 10.7 L (12.0-16.0) g/dl Hct 33.3 L (37-47) % MCV 103.1 H (80-98) fL MCH 33.1 H (27.0-33.0) pg RDW 16.7 H (11.0-16.0) % Lymph % (Auto) 19.8 L (20-40) % [place] % (Auto) 11.3 H (2-11) % Lymph # (Auto) 1.0 L (1.2-4.9) X10*3/uL PT 27.7 H (9.9-13.0) SEC INR 2.4 H (0.9-1.1) Anion Gap (12-20) BUN 19 H (9-16) mg/dL POC Glucose (60-115) mg/dL Random Glucose 253 H (60-115) mg/dL Troponin I High Sens (<3.5-17.0) ng/L B-Natriuretic Peptide (<100) pg/mL 04/11/21 04/12/21 04/12/21 Range/Units 21:46 01:08 01:12 WBC (4.8-10.8) X10*3/uL RBC (4.20-5.50) X10*6/uL Hgb (12.0-16.0) g/dl Hct (37-47) % MCV (80-98) fL MCH (27.0-33.0) pg RDW (11.0-16.0) % Lymph % (Auto) (20-40) % J[place] % (Auto) (2-11) % Lymph # (Auto) (1.2-4.9) X10*3/uL PT (9.9-13.0) SEC INR (0.9-1.1) Anion Gap (12-20) BUN (9-16) mg/dL POC Glucose 230 H (60-115) mg/dL Random Glucose (60-115) mg/dL Troponin I High Sens 31.3 H* (<3.5-17.0) ng/L B-Natriuretic Peptide 1337 H (<100) pg/mL 04/12/21 04/12/21 04/12/21 Range/Units 02:40 05:13 05:13 WBC 4.5 L (4.8-10.8) X10*3/uL RBC 3.16 L (4.20-5.50) X10*6/uL Hgb 10.4 L (12.0-16.0) g/dl Hct 32.4 L (37-47) % MCV 102.5 H (80-98) fL MCH (27.0-33.0) pg RDW 16.3 H (11.0-16.0) % Lymph % (Auto) (20-40) % J[place] % (Auto) (2-11) % Lymph # (Auto) 0.9 L (1.2-4.9) X10*3/uL PT (9.9-13.0) SEC INR (0.9-1.1) Anion Gap 11 L (12-20) BUN 18 H (9-16) mg/dL POC Glucose (60-115) mg/dL Random Glucose 263 H (60-115) mg/dL Troponin I High Sens 25.0 H* (<3.5-17.0) ng/L B-Natriuretic Peptide (<100) pg/mL 04/12/21 Range/Units 07:23 WBC (4.8-10.8) X10*3/uL RBC (4.20-5.50) X10*6/uL Hgb (12.0-16.0) g/dl Hct (37-47) % MCV (80-98) fL MCH (27.0-33.0) pg RDW (11.0-16.0) % Lymph % (Auto) (20-40) % J[place] % (Auto) (2-11) % Lymph # (Auto) (1.2-4.9) X10*3/uL PT (9.9-13.0) SEC INR (0.9-1.1) Anion Gap (12-20) BUN (9-16) mg/dL POC Glucose 211 H (60-115) mg/dL Random Glucose (60-115) mg/dL Troponin I High Sens (<3.5-17.0) ng/L B-Natriuretic Peptide (<100) pg/mL H & H 04/11/21 04/12/21 Range/Units 21:46 05:13 Hgb 10.7 L 10.4 L (12.0-16.0) g/dl Hct 33.3 L 32.4 L (37-47) % Coagulation 04/11/21 Range/Units 21:46 INR 2.4 H (0.9-1.1) All other labs normal. Assessment and Plan (1) Femoral neck fracture: Status: Acute Cardiac clearance for surgery pending XR right foot pending Wound nurse consulted [employer] Stroke Does the patient have a stroke diagnosis?: No VTE Prior VTE?: No VTE Risk Level:: Medical - moderate - high VTE Device Contraindication: Treatment Not Indicated VTE Drug Contraindication: N/A - Med Ordered Procedures Date of Service Date of Service: 04/12/21
[2021-04-12 11:54] LABS: Glucose, Whole Blood 137 mg/dL (60-115)
--- NOTE | 2021-04-12 13:38 | PC.NURSE ---
Pt refused all care from the nurse and nursing resident, got combative when attempting to do vitals, would not take medication PO, eat or drink anything. Deck Builder, myself attempted to speak with patient through the computer in Ethiopian, Pt did not respond would no even look. When asked if she had pain by this nurse she stated no. Attempted to call her son-in-law as requested, had to leave message. Picture of blister on her foot taken by Mariusz ORELLANA. left message for wound nurse to see patient. Turned and repositioned patient. Camera in use.
[2021-04-12] MEDS: Enoxaparin Sodium 40 MG/0.4 ML SYRINGE SUBCUT (13:50)
--- NOTE | 2021-04-12 13:50 | MHC.CM.PN ---
MESSAGE LEFT FOR [facility] LISTED CONTACT [facility] @ [phone] REQUESTING A CALL BACK TO DISCUSS DC PLAN AND IMM
--- NOTE | 2021-04-12 13:54 | MHC.CM.PN ---
REFERRAL PLACED TO [facility], WHERE PATIENT IS IN FROM. NO HCP ON FILE OR IN CHART BUT DOCUMENTATION FROM FACILITY STATES THAT HCP IS [facility] @ [phone] ADDITIONAL CONTACT NUMBER FOR SON-IN-LAW (DR LORENZO IBARRA) @ [phone] [facility] IS CHECKING TO SEE IF PATIENT IS A BED-HOLD AND WILL NOTIFY THIS UPPER TIER. ONCE A CALL IS RECEIVED FROM HCP, IMM WILL BE EXPLAINED
--- NOTE | 2021-04-12 14:33 | MHC.CM.PN ---
CALL FROM [facility]. PATIENT IS EXPECTED TO TRANSITION TO A LTC AT [facility] WHEN ONE IS AVAILABLE. PATIENT HAD BEEN USING A WALKER AT FACILITY. DAUGHTER HAS NOT BEEN ABLE OT VISITS SECONDARY TO COVID RESTRICTIONS. SHE IS ON HER WAY IN NOW AND EXPECTS TO BE HERE BY 1600. MADE AWARE. CASE MANAGEMENT WILL DISCUSS IMM UPON ARRIVAL.
[2021-04-12 16:25] LABS: Glucose, Whole Blood 27 mg/dL (60-115)
[2021-04-12] MEDS: 0.9 % Sodium Chloride Flush 3 ML SYRINGE IVFLUSH (16:25)
[2021-04-12 16:52] LABS: Glucose, Whole Blood 58 mg/dL (60-115)
[2021-04-12 17:38] LABS: Glucose, Whole Blood 50 mg/dL (60-115)
[2021-04-12] MEDS: Dextrose 5 % and 0.45 % NaCl 1,000 ML 50 ML IVCONT (18:08)
[2021-04-12 20:04] LABS: Glucose, Whole Blood 159 mg/dL (60-115)
[2021-04-12 20:33] LABS: Glucose, Whole Blood 79 mg/dL (60-115)
[2021-04-12] MEDS: 0.9 % Sodium Chloride 500 ML 999 ML IV (20:40)
[2021-04-12 22:02] LABS: Glucose, Whole Blood 85 mg/dL (60-115)
[2021-04-12] MEDS: Albumin Human 25 % 100 ML IV (22:27)
[2021-04-12] MEDS: cefEPime HCl 1 GM in 0.9 % Sodium Chloride 50 ML IV (22:27)
[2021-04-12 22:29] LABS: MANUAL DIFF FLAG NO
[2021-04-12 22:35] LABS: Basophils Percent Auto 0.4 % (0-2); Eosinophils Absolute Auto 0.3 X10*3/uL (0.0-0.4); Eosinophils Percent Auto 5.4 % (0-4); Hemoglobin 10.4 g/dl (12.0-16.0); Imm Gran Abs Auto 0.03 X10*3/uL (0.00-0.03); Imm Gran Pct Auto 0.6 % (0.0-0.4); Mean Corpuscular HGB Conc 32.5 g/dl (31.0-35.0); Mean Corpuscular Hemoglobin 33.9 pg (27.0-33.0); Mean Corpuscular Volume 104.2 fL (80-98); Mean Platelet Volume 10.1 fL (9.4-12.3); Monocytes Absolute Auto 0.5 X10*3/uL (0.1-1.2); Monocytes Percent Auto 8.8 % (2-11); Neutrophils Absolute Auto 3.4 X10*3/uL (2.0-8.3); Neutrophils Percent Auto 64.8 % (45-73); Platelet Count 237 X10*3/uL (160-400); Red Blood Count 3.07 X10*6/uL (4.20-5.50); Red Cell Distribution Width 16.5 % (11.0-16.0); White Blood Count 5.2 X10*3/uL (4.8-10.8)
[2021-04-12 22:48] LABS: Albumin Level 2.4 g/dL (3.5-5.0); Anion Gap 10 (12-20); Blood Urea Nitrogen 14 mg/dL (9-16); Calcium 7.9 mg/dL (8.4-10.2); Carbon Dioxide 28 mmol/L (22-29); Chloride 101 mmol/L (96-108); Estimated Glomerular Filt Rate 56; Glucose Random 306 mg/dL (60-115); Potassium 4.1 mmol/L (3.3-5.1); Sodium 135 mmol/L (135-145)
[2021-04-12 23:14] LABS: Troponin-I High Sensitivity 23.8 ng/L (<3.5-17.0)
--- NOTE | 2021-04-12 23:23 | PC.NURSE ---
15:00-23:00' ~16:00; Pt lethargic, nonverbal, not following commands, unable to participate in care/not eating or drinking fluids. Mottled skin noted to fingertips (not new). Initial POC at 16:00 low at 27, pt s/p x3 amp of D50, last POC 79, D5 1/2 NS started @ 50ml/hr. Dr. Ceja updated on patient status and at the bedside to assess pt. Lungs remain clear throughout, +3 pitting edema noted to bilateral ext, edema noted to bilateral hip region as well. Large closed-fluid blister to right foot. Pt repo q2hrs. Will monitor PC closely. ~19:00; Pt hypotensive, BP 74/72 manually, Afib rate 70's. Pt remains lethargic, resting in bed comfortably, daughter (HCP) at the bedside. Dr. Loya notified. 500ml NS bolus ordered and given. BP rechecked 90/50. Intensivists consulted, will follow up on new orders. ~22:30; Pt now awake, more responsive, BP and POC stable. Will continue to monitor.
[2021-04-13] VITALS (7 sets, daily range): BP systolic 111–133; BP diastolic 58–85; PULSE 66–85; RESP 15–18; TEMP 36.2–36.9; O2SAT 95–100
[2021-04-13] MEDS: Albumin Human 25 % 100 ML IV (00:02)
[2021-04-13] MEDS: 0.9 % Sodium Chloride Flush 3 ML SYRINGE IVFLUSH (00:06)
[2021-04-13 00:49] LABS: Glucose, Whole Blood 162 mg/dL (60-115)
--- NOTE | 2021-04-13 01:55 | PM.EVENT ---
Event Note Date of Service: 04/13/21 Event Note: Hypotension: Patient had an episode of hypotension on 04/12/2021 around 8:00 p.m.. Patient noted to be drowsy lethargic and has cold extremities; Patient blood pressure was noted to be 79/45. Started gentle fluids given history of CHF/pericardial effusion. echocardiogram showed large loculated pericardial effusion. Goals of care discussion: Spoke to the patient's daughter who is the healthcare proxy-Irais [phone]; also spoke to her fiance Toan [phone]. They wanted to keep the patient DNR/DNI. But if the blood pressure dropped the willing to try interventions including vasopressors. Spoke to Cardiology consult Dr Peña-Kar who mentioned that given the localized location of the pericardial effusion less possible defer cardiac tamponade. Patient case was discussed with Dr. Solano from ICU; who evaluated the patient, did bedside echocardiogram and mentioned that heart will does not appear to be collapsing; and patient might tolerate some more fluids. Continued IV fluids. Blood pressure gradually improved. Patient became more alert and awake. pt was started on empiric abx.
[2021-04-13 04:05] LABS: Glucose, Whole Blood 221 mg/dL (60-115)
[2021-04-13 05:02] LABS: Hematocrit 25.9 % (37-47); Hemoglobin 8.3 g/dl (12.0-16.0); Mean Corpuscular Hemoglobin 33.7 pg (27.0-33.0); Mean Corpuscular Volume 105.3 fL (80-98); Mean Platelet Volume 9.8 fL (9.4-12.3); Platelet Count 186 X10*3/uL (160-400); Red Blood Count 2.46 X10*6/uL (4.20-5.50); Red Cell Distribution Width 16.2 % (11.0-16.0); White Blood Count 4.9 X10*3/uL (4.8-10.8)
[2021-04-13 05:18] LABS: Anion Gap 13 (12-20); Blood Urea Nitrogen 13 mg/dL (9-16); Calcium 8.1 mg/dL (8.4-10.2); Carbon Dioxide 25 mmol/L (22-29); Chloride 104 mmol/L (96-108); Creatinine Clr Calc Pharmacy 48.6; Estimated Glomerular Filt Rate > 60; Glucose Fasting 229 mg/dL (60-99); Potassium 3.9 mmol/L (3.3-5.1); Sodium 138 mmol/L (135-145)
[2021-04-13 07:34] LABS: Glucose, Whole Blood 212 mg/dL (60-115)
--- NOTE | 2021-04-13 08:35 | PM.PNORT ---
Subjective Subjective Date of Service: 04/13/21 Interval history: Patient is resting in bed comfortably with daughter and HCP Irais at bedside. Pain is managed. Overnight the patient became hypotensive, lethargic, and confused. Hospitalist saw the patient and gave fluids. The patients BP normalized and is doing better this morning. No additional complaints. Physical Exam Vital Signs: Vital Signs: Last Vital Signs Temp 97.1 F 04/13/21 07:17 Pulse 67 04/13/21 07:17 Resp 15 04/13/21 07:17 BP 111/58 L 04/13/21 07:17 Pulse Ox 100 04/13/21 07:17 Body Mass Index 22.8 Const: General: cooperative, healthy appearing and no acute distress Resp: Effort & Inspection: normal respiratory effort and able to speak in complete sentences Cardio: Rate: regular rate Peripheral pulses: Peripheral pulses 2+ throughout GI: Palpation (GI): Soft to palpation Skin: Lesions: no lesions Rashes: no rashes Extrem: Other: Right hip no ecchymosis or redness. Skin intact with no lesions or abrasions. Pain with log roll. NVI. 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 Procedures Date of Service Date of Service: 04/13/21 Progress Note: A&P Assessment and plan (1) Femoral neck fracture: Status: Acute Assessment and Plan: Dr. Sheets was available to see the patient this morning and speak with her daughter Irais who is also the patients HCP. We discussed the case with and explained the extent of the injury to the patient and options available which include surgical intervention. We explained the procedure in detail along with the length of recovery and rehab course. We explained the risk, benefits and alternatives. Risk including, but not limited to infection, blood clots, bleeding, non union or malunion, nerve/tissue damage to surrounding areas and morality. All of their questions were answered and with their understanding they have consented to move forward with Operative Fixation of the right hip. The patient will be T&S, med clearance obtained and NPO after midnight tonight. Continue to hold Eliquis. Plan for right hip sam tomorrow NPO after midnight Fall Risk Details Current Medications: Current Medications Acetaminophen (Acetaminophen 325 Mg Tablet) 650 mg PO Q6H PRN PRN Reason: Pain, Mild (Pain Scale 1-3) Atorvastatin Calcium (Atorvastatin Calcium 10 Mg Tablet) 10 mg PO BEDTIME [facility] Last Admin: 04/12/21 19:59 Dose: Not Given Documented by: Dextrose (Dextrose 50 % 25 Gm/50 Ml Vial) 25 gm IVPUSH Q15M PRN; Protocol PRN Reason: per Hypoglycemia Standing Ord. Last Admin: 04/12/21 16:25 Dose: 25 gm Documented by: Enoxaparin Sodium (Enoxaparin Sodium 40 Mg/0.4 Ml Syringe) 40 mg SUBCUT Q24H [facility] Last Admin: 04/12/21 13:50 Dose: 40 mg Documented by: Glucose (Glucose Gel 15 Gm Gel..Gram.) 15 gm PO Q15M PRN; Protocol PRN Reason: per Hypoglycemia Standing Ord. Dextrose/Sodium Chloride (D51/2ns) 1,000 mls @ 50 mls/hr IVCONT .Q20H [facility] Last Admin: 04/12/21 18:08 Dose: 50 mls/hr Documented by: Insulin Human Lispro (Insulin Lispro 100 Unit/Ml 3 Ml Vial) 0 unit SUBCUT QIDACHS [facility]; Protocol Last Admin: 04/13/21 08:21 Dose: Not Given Documented by: Levothyroxine Sodium (Levothyroxine Sodium 112 Mcg Tablet) 112 mcg PO DAILY@0600 [facility] Last Admin: 04/13/21 07:06 Dose: Not Given Documented by: Magnesium Oxide (Magnesium Oxide 400 Mg Tablet) 400 mg PO BID [facility] Last Admin: 04/12/21 20:00 Dose: Not Given Documented by: Melatonin (Melatonin 3 Mg Tablet) 6 mg PO BEDTIME PRN PRN Reason: Insomnia Metoprolol Tartrate (Metoprolol Tartrate 12.5 Mg Halftab) 6.25 mg PO BID [facility] Last Admin: 04/12/21 20:00 Dose: Not Given Documented by: Oxycodone HCl (Oxycodone Hcl Immed Release 5 Mg Tablet) 5 mg PO Q6H PRN PRN Reason: Pain, Severe (Pain Scale 7-10) Last Admin: 04/12/21 13:55 Dose: 5 mg Documented by: Pharmacy Consult (Consult Rx Perform Med Rec) 1 each MISCELLANE ONCE PRN PRN Reason: Consult order Senna (Sennosides 8.6 Mg Tablet) 17.2 mg PO BEDTIME PRN PRN Reason: Constipation Sodium Chloride (0.9 % Sodium Chloride Flush 3 Ml Syringe) 3 ml IVFLUSH QSHIFT [facility] Last Admin: 04/13/21 07:41 Dose: Not Given Documented by: Torsemide (Torsemide 20 Mg Tablet) 10 mg PO DAILY [facility] Last Admin: 04/12/21 09:16 Dose: Not Given Documented by: Vitamin D (Cholecalciferol (Vitamin D3) 25 Mcg Tablet) 25 mcg PO DAILY [facility] Last Admin: 04/12/21 09:15 Dose: Not Given Documented by: Time Spent With Patient Time: Total time spent is greater than 50% in coordination of care (as documented) at patient's floor/unit and/or counseling patient: Time with patient: less than 15 minutes Quality Stroke Does the patient have a stroke diagnosis?: No VTE Prior VTE?: No VTE Risk Level:: Medical - moderate - high VTE Device Contraindication: Treatment Not Indicated VTE Drug Contraindication: N/A - Med Ordered
[2021-04-13] MEDS: Enoxaparin Sodium 40 MG/0.4 ML SYRINGE SUBCUT (08:52)
--- NOTE | 2021-04-13 08:53 | PM.CCN ---
Critical Care Event Note Summary Date of Service: 04/12/21 Code activated: No Narrative: Late note for patient seen between 9:00 p.m. and 10:00 p.m. on 04/12/2021. 85-year-old lady admitted with right femoral fracture with underlying history of pericardiocentesis approximately 2 months prior at [facility] with drainage of 250 cc of fluid noted to be hypotensive with systolic blood pressure and high 70s. Patient blood pressure improved to systolic over 100 after administration of 1 L of IV fluids. Bedside echocardiogram showing no tamponade physiology. Patient is alert and oriented and back to baseline per her daughter. Blood cultures, hemoglobin, and empiric antibiotics ordered. Case discussed with night hospitalist. At that time patient does not require intensive care level of services. Critical Care Time (minutes): 0
--- NOTE | 2021-04-13 09:17 | P.PNIM_ITS ---
Subjective Subjective Date of Service: 04/13/21 Interval History: cc: femur fracture interval history: more alert this AM, was able to talk to daughter with some limitted understanding of medical condition Cardiovascular Cardiovascular: Reports no additional cardiovascular complaints Respiratory Respiratory: Reports no additional respiratory complaints Physical Exam Vital Signs: Vital Signs: Last Vital Signs Temp 97.1 F 04/13/21 07:17 Pulse 67 04/13/21 07:17 Resp 15 04/13/21 07:17 BP 111/58 L 04/13/21 07:17 Pulse Ox 100 04/13/21 07:17 Body Mass Index 22.8 General: lethargic, more alert than yesterday, able to talk and make some sense, overall very ill appearing Resp: diminished, no accessory muscles used CVS: S1,S2,RRR, 3+ edema with blister on RLE present on admission (see pic) GI: soft, non tender, non distended Neuro: moving all extremities, had some mild right hemiparesis after cva but unable to appreciate on this exam Psych: appropriate affect, impaired insight Objective Data Active Medications Acetaminophen (Acetaminophen 325 Mg Tablet) 650 mg PO Q6H PRN PRN Reason: Pain, Mild (Pain Scale 1-3) Atorvastatin Calcium (Atorvastatin Calcium 10 Mg Tablet) 10 mg PO BEDTIME [facility] Last Admin: 04/12/21 19:59 Dose: Not Given Documented by: PATO Non-Admin Reason: unable to take PO Dextrose (Dextrose 50 % 25 Gm/50 Ml Vial) 25 gm IVPUSH Q15M PRN; Protocol PRN Reason: per Hypoglycemia Standing Ord. Last Admin: 04/12/21 16:25 Dose: 25 gm Documented by: PATO Enoxaparin Sodium (Enoxaparin Sodium 40 Mg/0.4 Ml Syringe) 40 mg SUBCUT Q24H [facility] Last Admin: 04/13/21 08:52 Dose: 40 mg Documented by: MATILDA Glucose (Glucose Gel 15 Gm Gel..Gram.) 15 gm PO Q15M PRN; Protocol PRN Reason: per Hypoglycemia Standing Ord. Dextrose/Sodium Chloride (D51/2ns) 1,000 mls @ 50 mls/hr IVCONT .Q20H [facility] Last Admin: 04/12/21 18:08 Dose: 50 mls/hr Documented by: PATO Insulin Human Lispro (Insulin Lispro 100 Unit/Ml 3 Ml Vial) 0 unit SUBCUT QIDACHS [facility]; Protocol Last Admin: 04/13/21 08:21 Dose: Not Given Documented by: MATILDA Non-Admin Reason: Patient Condition Contraindication Levothyroxine Sodium (Levothyroxine Sodium 112 Mcg Tablet) 112 mcg PO DAILY@0600 [facility] Last Admin: 04/13/21 07:06 Dose: Not Given Documented by: TERE Non-Admin Reason: NPO Magnesium Oxide (Magnesium Oxide 400 Mg Tablet) 400 mg PO BID [facility] Last Admin: 04/13/21 08:51 Dose: Not Given Documented by: MATILDA Non-Admin Reason: Patient Refused Melatonin (Melatonin 3 Mg Tablet) 6 mg PO BEDTIME PRN PRN Reason: Insomnia Metoprolol Tartrate (Metoprolol Tartrate 12.5 Mg Halftab) 6.25 mg PO BID [facility] Last Admin: 04/13/21 08:51 Dose: Not Given Documented by: MATILDA Non-Admin Reason: Patient Refused Oxycodone HCl (Oxycodone Hcl Immed Release 5 Mg Tablet) 5 mg PO Q6H PRN PRN Reason: Pain, Severe (Pain Scale 7-10) Last Admin: 04/12/21 13:55 Dose: 5 mg Documented by: MARSHA Pharmacy Consult (Consult Rx Perform Med Rec) 1 each MISCELLANE ONCE PRN PRN Reason: Consult order Senna (Sennosides 8.6 Mg Tablet) 17.2 mg PO BEDTIME PRN PRN Reason: Constipation Sodium Chloride (0.9 % Sodium Chloride Flush 3 Ml Syringe) 3 ml IVFLUSH QSHIFT [facility] Last Admin: 04/13/21 07:41 Dose: Not Given Documented by: MATILDA Non-Admin Reason: IV Running Torsemide (Torsemide 20 Mg Tablet) 10 mg PO DAILY [facility] Last Admin: 04/13/21 08:51 Dose: Not Given Documented by: MATILDA Non-Admin Reason: Physician Held Med Vitamin D (Cholecalciferol (Vitamin D3) 25 Mcg Tablet) 25 mcg PO DAILY [facility] Last Admin: 04/13/21 08:51 Dose: Not Given Documented by: MATILDA Non-Admin Reason: Patient Refused Labs CBC & Chem 7: 04/13/21 04:41 04/13/21 04:41 Labs: Laboratory Results - last 24 hr 04/12/21 04/12/21 04/12/21 11:48 16:18 16:49 MCV MCH MCHC RDW Plt Count MPV Immature Gran % (Auto) Neut % (Auto) Lymph % (Auto) Blount % (Auto) Eos % (Auto) Baso % (Auto) Lymph # (Auto) Blount # (Auto) Eos # (Auto) Baso # (Auto) Abs Immat Gran (auto) Absolute Neuts (auto) Absolute Nucleated RBC Nucleated RBC % (auto) Anion Gap Estim Creat Clear Calc Estimated GFR POC Glucose 137 H 27 L* 58 L* Random Glucose Fasting Glucose Calcium Troponin I High Sens Albumin 04/12/21 04/12/21 04/12/21 17:34 19:48 20:29 MCV MCH MCHC RDW Plt Count MPV Immature Gran % (Auto) Neut % (Auto) Lymph % (Auto) Blount % (Auto) Eos % (Auto) Baso % (Auto) Lymph # (Auto) Blount # (Auto) Eos # (Auto) Baso # (Auto) Abs Immat Gran (auto) Absolute Neuts (auto) Absolute Nucleated RBC Nucleated RBC % (auto) Anion Gap Estim Creat Clear Calc Estimated GFR POC Glucose 50 L* 159 H 79 Random Glucose Fasting Glucose Calcium Troponin I High Sens Albumin 04/12/21 04/12/21 04/12/21 21:57 22:23 22:23 MCV 104.2 H MCH 33.9 H MCHC 32.5 RDW 16.5 H Plt Count 237 MPV 10.1 Immature Gran % (Auto) 0.6 H Neut % (Auto) 64.8 Lymph % (Auto) 20.0 Blount % (Auto) 8.8 Eos % (Auto) 5.4 H Baso % (Auto) 0.4 Lymph # (Auto) 1.0 L Blount # (Auto) 0.5 Eos # (Auto) 0.3 Baso # (Auto) 0.0 Abs Immat Gran (auto) 0.03 Absolute Neuts (auto) 3.4 Absolute Nucleated RBC 0.000 Nucleated RBC % (auto) 0.0 Anion Gap 10 L Estim Creat Clear Calc 42.0 Estimated GFR 56 POC Glucose 85 Random Glucose 306 H Fasting Glucose Calcium 7.9 L Troponin I High Sens Albumin 2.4 L D 09/29/21 09/30/21 09/30/21 22:23 00:45 04:01 MCV MCH MCHC RDW Plt Count MPV Immature Gran % (Auto) Neut % (Auto) Lymph % (Auto) Blount % (Auto) Eos % (Auto) Baso % (Auto) Lymph # (Auto) Blount # (Auto) Eos # (Auto) Baso # (Auto) Abs Immat Gran (auto) Absolute Neuts (auto) Absolute Nucleated RBC Nucleated RBC % (auto) Anion Gap Estim Creat Clear Calc Estimated GFR POC Glucose 162 H 221 H Random Glucose Fasting Glucose Calcium Troponin I High Sens 23.8 H* Albumin 04/13/21 04/13/21 04/13/21 04:41 04:41 07:15 MCV 105.3 H MCH 33.7 H MCHC 32.0 RDW 16.2 H Plt Count 186 MPV 9.8 Immature Gran % (Auto) Neut % (Auto) Lymph % (Auto) Blount % (Auto) Eos % (Auto) Baso % (Auto) Lymph # (Auto) Blount # (Auto) Eos # (Auto) Baso # (Auto) Abs Immat Gran (auto) Absolute Neuts (auto) Absolute Nucleated RBC 0.000 Nucleated RBC % (auto) 0.0 Anion Gap 13 Estim Creat Clear Calc 48.6 Estimated GFR > 60 POC Glucose 212 H Random Glucose Fasting Glucose 229 H Calcium 8.1 L Troponin I High Sens Albumin Assessment and Plan (1) Chronic systolic CHF (congestive heart failure): Status: Acute (2) Femur fracture, right: Status: Acute (3) Atrial fibrillation: Status: Acute (4) Diabetes mellitus, type 2: Status: Acute (5) Hypothyroidism: Status: Acute Assessment and Plan: 85F presented with inability to stand due to right hip fracture from fall right hip fracture holding eliquis for surgery planned for 04/14 patient is high risk, discussed with HCP, patient's daughter, would like to pursue surgery despite high risk as it is the best option for any favorable outcome. cardiology appreciated, risk unmodifiable chronic systolic chf, severe pulmonary htn, pericardial effusion metoprolol patient appears dry, will hold torsemide, given 1L and hypotension resolved, continue maintance fluids permanent atrial fibrillation metoprolol eliquis on hold for potential surgery history of CVA with residual dysphagia, dysarthria, right hemiparesis (right hemiparesis appears resolved) NDD2 solids, nectar thick liquids holding eliquis continue statin DM with hypoglycemia due to poor intake continue d51/2ns, can cover with insulin as needed, monitor poc CKD III stable, monitor bmp hypothyroid synthroid DNR/DNI Quality Stroke Does the patient have a stroke diagnosis?: No VTE Prior VTE?: No VTE Risk Level:: Medical - moderate - high VTE Device Contraindication: Treatment Not Indicated VTE Drug Contraindication: N/A - Med Ordered
--- NOTE | 2021-04-13 11:15 | P.PNCA_ITS ---
Subjective Subjective Date of Service: 04/13/21 Interval history: Still confused. Not able to give any information. Review of Systems Review of Systems Unable to obtain as she is confused. Physical Exam Vital Signs: Last Vital Signs Temp 97.1 F 04/13/21 07:17 Pulse 67 04/13/21 07:17 Resp 15 04/13/21 07:17 BP 111/58 L 04/13/21 07:17 Pulse Ox 100 04/13/21 07:17 Body Mass Index 22.8 Const Other: confused HENAZ Other: Unremarkable Neck Neck: Yes normal visual inspection Chest Chest palpation & inspection: normal inspection of the chest Resp Other: poor respiratory effort to clearly examine Cardio Jugular venous distension: no JVD Palpation: normal PMI Heart sounds: S1 normal heart sound present, S2 normal heart sound present, no gallops, Murmur heart sound present (1/6 BENNIE aortic area) and no rubs GI Palpation (GI): Soft to palpation Back/Spine/Pelvis Other: unremarkable Skin General skin exam: no rashes or lesions noted Neuro Cranial nerves: Yes Other cranial nerve findings present Extrem General: Yes no clubbing, cyanosis or edema Psych Mental Status: other Results Labs and Meds Result diagrams: 04/13/21 04:41 04/13/21 04:41 Lab results: Laboratory Results - last 24 hr 04/12/21 04/12/21 04/12/21 11:48 16:18 16:49 WBC RBC Hgb Hct MCV MCH MCHC RDW Plt Count MPV Immature Gran % (Auto) Neut % (Auto) Lymph % (Auto) [place] % (Auto) Eos % (Auto) Baso % (Auto) Lymph # (Auto) [place] # (Auto) Eos # (Auto) Baso # (Auto) Abs Immat Gran (auto) Absolute Neuts (auto) Absolute Nucleated RBC Nucleated RBC % (auto) Sodium Potassium Chloride Carbon Dioxide Anion Gap BUN Creatinine Estim Creat Clear Calc Estimated GFR POC Glucose 137 H 27 L* 58 L* Random Glucose Fasting Glucose Calcium Troponin I High Sens Albumin 04/12/21 04/12/21 04/12/21 17:34 19:48 20:29 WBC RBC Hgb Hct MCV MCH MCHC RDW Plt Count MPV Immature Gran % (Auto) Neut % (Auto) Lymph % (Auto) [place] % (Auto) Eos % (Auto) Baso % (Auto) Lymph # (Auto) [place] # (Auto) Eos # (Auto) Baso # (Auto) Abs Immat Gran (auto) Absolute Neuts (auto) Absolute Nucleated RBC Nucleated RBC % (auto) Sodium Potassium Chloride Carbon Dioxide Anion Gap BUN Creatinine Estim Creat Clear Calc Estimated GFR POC Glucose 50 L* 159 H 79 Random Glucose Fasting Glucose Calcium Troponin I High Sens Albumin 04/12/21 04/12/21 04/12/21 21:57 22:23 22:23 WBC 5.2 RBC 3.07 L Hgb 10.4 L Hct 32.0 L MCV 104.2 H MCH 33.9 H MCHC 32.5 RDW 16.5 H Plt Count 237 MPV 10.1 Immature Gran % (Auto) 0.6 H Neut % (Auto) 64.8 Lymph % (Auto) 20.0 [place] % (Auto) 8.8 Eos % (Auto) 5.4 H Baso % (Auto) 0.4 Lymph # (Auto) 1.0 L [place] # (Auto) 0.5 Eos # (Auto) 0.3 Baso # (Auto) 0.0 Abs Immat Gran (auto) 0.03 Absolute Neuts (auto) 3.4 Absolute Nucleated RBC 0.000 Nucleated RBC % (auto) 0.0 Sodium 135 Potassium 4.1 Chloride 101 Carbon Dioxide 28 Anion Gap 10 L BUN 14 Creatinine 0.95 Estim Creat Clear Calc 42.0 Estimated GFR 56 POC Glucose 85 Random Glucose 306 H Fasting Glucose Calcium 7.9 L Troponin I High Sens Albumin 2.4 L D 04/12/21 04/13/21 04/13/21 22:23 00:45 04:01 WBC RBC Hgb Hct MCV MCH MCHC RDW Plt Count MPV Immature Gran % (Auto) Neut % (Auto) Lymph % (Auto) [place] % (Auto) Eos % (Auto) Baso % (Auto) Lymph # (Auto) [place] # (Auto) Eos # (Auto) Baso # (Auto) Abs Immat Gran (auto) Absolute Neuts (auto) Absolute Nucleated RBC Nucleated RBC % (auto) Sodium Potassium Chloride Carbon Dioxide Anion Gap BUN Creatinine Estim Creat Clear Calc Estimated GFR POC Glucose 162 H 221 H Random Glucose Fasting Glucose Calcium Troponin I High Sens 23.8 H* Albumin 04/13/21 04/13/21 04/13/21 04:41 04:41 07:15 WBC 4.9 RBC 2.46 L Hgb 8.3 L D Hct 25.9 L MCV 105.3 H MCH 33.7 H MCHC 32.0 RDW 16.2 H Plt Count 186 MPV 9.8 Immature Gran % (Auto) Neut % (Auto) Lymph % (Auto) [place] % (Auto) Eos % (Auto) Baso % (Auto) Lymph # (Auto) [place] # (Auto) Eos # (Auto) Baso # (Auto) Abs Immat Gran (auto) Absolute Neuts (auto) Absolute Nucleated RBC 0.000 Nucleated RBC % (auto) 0.0 Sodium 138 Potassium 3.9 Chloride 104 Carbon Dioxide 25 Anion Gap 13 BUN 13 Creatinine 0.82 Estim Creat Clear Calc 48.6 Estimated GFR > 60 POC Glucose 212 H Random Glucose Fasting Glucose 229 H Calcium 8.1 L Troponin I High Sens Albumin Imaging Radiologist's impression: Impressions Foot X-Ray 04/12/21 11:29 IMPRESSION: Large bulla dorsal distal foot. No underlying bony abnormality. Small calcaneal heel and retrocalcaneal enthesophyte. Chest X-Ray 04/12/21 21:22 IMPRESSION: Probable mild CHF. Atelectasis/consolidation at the left lung base unchanged. Progress Note: A&P Assessment and plan (1) Preoperative cardiovascular examination: Status: Acute (2) Chronic systolic CHF (congestive heart failure): Status: Acute (3) Persistent atrial fibrillation: Status: Acute (4) Pericardial effusion: Status: Acute (5) Presence of cardiac pacemaker: Status: Acute Assessment and Plan: Overnight BP dropped but then improved with fluids. On echo, she has a large posterior effusion, but limited images as she was confused and not able to co- operate. Most likely underlying CAD as well. Additionally, has significant tricuspid regurgitation as well as pulmonary hypertension. Overall, she is at high cardiac risk for any perioperative complications. This includes during surgery as well as in the days following surgery. I specifically discussed this in detail with the daughter who was at the bedside. Only reason to do the surgery is pain relief so that she can have some ambulation. I also explained that with or without surgery, there is high risk mortality in near future. She is still interested in proceeding. Discussed with as well from anesthesia. Fall Risk Details Current Medications: Current Medications Acetaminophen (Acetaminophen 325 Mg Tablet) 650 mg PO Q6H PRN PRN Reason: Pain, Mild (Pain Scale 1-3) Atorvastatin Calcium (Atorvastatin Calcium 10 Mg Tablet) 10 mg PO BEDTIME [facility] Last Admin: 04/12/21 19:59 Dose: Not Given Documented by: Dextrose (Dextrose 50 % 25 Gm/50 Ml Vial) 25 gm IVPUSH Q15M PRN; Protocol PRN Reason: per Hypoglycemia Standing Ord. Last Admin: 04/12/21 16:25 Dose: 25 gm Documented by: Enoxaparin Sodium (Enoxaparin Sodium 40 Mg/0.4 Ml Syringe) 40 mg SUBCUT Q24H [facility] Last Admin: 04/13/21 08:52 Dose: 40 mg Documented by: Glucose (Glucose Gel 15 Gm Gel..Gram.) 15 gm PO Q15M PRN; Protocol PRN Reason: per Hypoglycemia Standing Ord. Dextrose/Sodium Chloride (D51/2ns) 1,000 mls @ 50 mls/hr IVCONT .Q20H [facility] Last Admin: 04/12/21 18:08 Dose: 50 mls/hr Documented by: Insulin Human Lispro (Insulin Lispro 100 Unit/Ml 3 Ml Vial) 0 unit SUBCUT QIDACHS [facility]; Protocol Last Admin: 04/13/21 08:21 Dose: Not Given Documented by: Levothyroxine Sodium (Levothyroxine Sodium 112 Mcg Tablet) 112 mcg PO DAILY@0600 [facility] Last Admin: 04/13/21 07:06 Dose: Not Given Documented by: Magnesium Oxide (Magnesium Oxide 400 Mg Tablet) 400 mg PO BID [facility] Last Admin: 04/13/21 08:51 Dose: Not Given Documented by: Melatonin (Melatonin 3 Mg Tablet) 6 mg PO BEDTIME PRN PRN Reason: Insomnia Metoprolol Tartrate (Metoprolol Tartrate 12.5 Mg Halftab) 6.25 mg PO BID [facility] Last Admin: 04/13/21 08:51 Dose: Not Given Documented by: Oxycodone HCl (Oxycodone Hcl Immed Release 5 Mg Tablet) 5 mg PO Q6H PRN PRN Reason: Pain, Severe (Pain Scale 7-10) Last Admin: 04/12/21 13:55 Dose: 5 mg Documented by: Pharmacy Consult (Consult Rx Perform Med Rec) 1 each MISCELLANE ONCE PRN PRN Reason: Consult order Senna (Sennosides 8.6 Mg Tablet) 17.2 mg PO BEDTIME PRN PRN Reason: Constipation Sodium Chloride (0.9 % Sodium Chloride Flush 3 Ml Syringe) 3 ml IVFLUSH QSHIFT [facility] Last Admin: 04/13/21 07:41 Dose: Not Given Documented by: Torsemide (Torsemide 20 Mg Tablet) 10 mg PO DAILY [facility] Last Admin: 04/13/21 08:51 Dose: Not Given Documented by: Vitamin D (Cholecalciferol (Vitamin D3) 25 Mcg Tablet) 25 mcg PO DAILY [facility] Last Admin: 04/13/21 08:51 Dose: Not Given Documented by: Time Spent With Patient Time: Total time spent is greater than 50% in coordination of care (as docume nted) at patient's floor/unit and/or counseling patient: Time with patient: less than 15 minutes Progress Note: Quality Stroke Does the patient have a stroke diagnosis?: No Procedures Date of Service Date of Service: 04/13/21
[2021-04-13 11:29] LABS: Glucose, Whole Blood 227 mg/dL (60-115)
[2021-04-13] MEDS: Insulin Lispro 100 UNIT/ML 3 ML VIAL SUBCUT (12:08)
--- NOTE | 2021-04-13 13:09 | MHC.CM.PN ---
CM MET WITH PTS DAUGHTER, SUNG, WHO WAS AT BEDSIDE. IMM DELIVERED DAUGHTER INFORMED OF PLAN FOR SURGERY TOMORROW
[2021-04-13 16:38] LABS: Glucose, Whole Blood 108 mg/dL (60-115)
[2021-04-13] MEDS: Dextrose 5 % and 0.45 % NaCl 1,000 ML 50 ML IVCONT (17:18)
[2021-04-13 20:58] LABS: Glucose, Whole Blood 158 mg/dL (60-115)
[2021-04-13] MEDS: Metoprolol Tartrate 12.5 MG HALFTAB 6.25 MG PO (22:42)
[2021-04-13] MEDS: Magnesium Oxide 400 MG TABLET PO (22:43)
[2021-04-13] MEDS: Atorvastatin Calcium 10 MG TABLET PO (22:43)
[2021-04-14] VITALS (14 sets, daily range): BP systolic 110–143; BP diastolic 56–69; PULSE 79–103; RESP 16–20; TEMP 36.6–37.2; O2SAT 90–99
[2021-04-14 06:13] LABS: Hematocrit 27.4 % (37-47); Hemoglobin 8.6 g/dl (12.0-16.0); Mean Corpuscular HGB Conc 31.4 g/dl (31.0-35.0); Mean Platelet Volume 9.9 fL (9.4-12.3); Platelet Count 211 X10*3/uL (160-400); Red Blood Count 2.61 X10*6/uL (4.20-5.50); Red Cell Distribution Width 16.1 % (11.0-16.0)
[2021-04-14 06:58] LABS: Anion Gap 10 (12-20); Blood Urea Nitrogen 9 mg/dL (9-16); Calcium 8.4 mg/dL (8.4-10.2); Carbon Dioxide 28 mmol/L (22-29); Chloride 104 mmol/L (96-108); Creatinine Clr Calc Pharmacy 52.4; Estimated Glomerular Filt Rate > 60; Glucose Fasting 194 mg/dL (60-99); Potassium 4.1 mmol/L (3.3-5.1); Sodium 138 mmol/L (135-145)
[2021-04-14 07:26] LABS: Glucose, Whole Blood 187 mg/dL (60-115)
--- NOTE | 2021-04-14 08:50 | HO.PM.IMPN ---
Subjective Subjective Date of Service: 04/14/21 Interval History: cc: fall no pain when not moving Cardiovascular Cardiovascular: Reports no additional cardiovascular complaints Gastrointestinal Gastrointestinal: Reports no additional gastrointestinal complaints Physical Exam Vital Signs: Vital Signs: Last Vital Signs Temp 97.9 F 04/14/21 08:00 Pulse 80 04/14/21 08:00 Resp 20 04/14/21 08:00 BP 113/56 L 04/14/21 08:00 Pulse Ox 98 04/14/21 08:00 Body Mass Index 22.8 General: lethargic, more alert than yesterday, able to talk and make some sense, overall very ill appearing Resp:? diminished, no accessory muscles used CVS: S1,S2,RRR, 3+ edema with blister on RLE present on admission (see pic) GI: soft, non tender, non distended Neuro:? moving all extremities, had some mild right hemiparesis after cva but unable to appreciate on this exam Psych: appropriate affect, impaired insight? Objective Data Active Medications Acetaminophen (Acetaminophen 325 Mg Tablet) 650 mg PO Q6H PRN PRN Reason: Pain, Mild (Pain Scale 1-3) Atorvastatin Calcium (Atorvastatin Calcium 10 Mg Tablet) 10 mg PO BEDTIME [facility] Last Admin: 04/13/21 22:43 Dose: 10 mg Documented by: GINA Dextrose (Dextrose 50 % 25 Gm/50 Ml Vial) 25 gm IVPUSH Q15M PRN; Protocol PRN Reason: per Hypoglycemia Standing Ord. Last Admin: 04/12/21 16:25 Dose: 25 gm Documented by: PATO Enoxaparin Sodium (Enoxaparin Sodium 40 Mg/0.4 Ml Syringe) 40 mg SUBCUT Q24H [facility] Last Admin: 04/13/21 08:52 Dose: 40 mg Documented by: MATILDA Glucose (Glucose Gel 15 Gm Gel..Gram.) 15 gm PO Q15M PRN; Protocol PRN Reason: per Hypoglycemia Standing Ord. Dextrose/Sodium Chloride (D51/2ns) 1,000 mls @ 50 mls/hr IVCONT .Q20H [facility] Last Admin: 04/13/21 17:18 Dose: 50 mls/hr Documented by: MATILDA Insulin Human Lispro (Insulin Lispro 100 Unit/Ml 3 Ml Vial) 0 unit SUBCUT QIDACHS [facility]; Protocol Last Admin: 04/14/21 07:29 Dose: Not Given Documented by: MYLENE Non-Admin Reason: NPO Levothyroxine Sodium (Levothyroxine Sodium 112 Mcg Tablet) 112 mcg PO DAILY@0600 [facility] Last Admin: 04/14/21 05:10 Dose: Not Given Documented by: GINA Non-Admin Reason: NPO Magnesium Oxide (Magnesium Oxide 400 Mg Tablet) 400 mg PO BID [facility] Last Admin: 04/13/21 22:43 Dose: 400 mg Documented by: GINA Melatonin (Melatonin 3 Mg Tablet) 6 mg PO BEDTIME PRN PRN Reason: Insomnia Metoprolol Tartrate (Metoprolol Tartrate 12.5 Mg Halftab) 6.25 mg PO BID [facility] Last Admin: 04/13/21 22:42 Dose: 6.25 mg Documented by: GINA Oxycodone HCl (Oxycodone Hcl Immed Release 5 Mg Tablet) 5 mg PO Q6H PRN PRN Reason: Pain, Severe (Pain Scale 7-10) Last Admin: 04/12/21 13:55 Dose: 5 mg Documented by: MARSHA Pharmacy Consult (Consult Rx Perform Med Rec) 1 each MISCELLANE ONCE PRN PRN Reason: Consult order Senna (Sennosides 8.6 Mg Tablet) 17.2 mg PO BEDTIME PRN PRN Reason: Constipation Sodium Chloride (0.9 % Sodium Chloride Flush 3 Ml Syringe) 3 ml IVFLUSH QSHIFT [facility] Last Admin: 04/13/21 22:58 Dose: Not Given Documented by: GINA Non-Admin Reason: IV Running Torsemide (Torsemide 20 Mg Tablet) 10 mg PO DAILY [facility] Last Admin: 04/13/21 08:51 Dose: Not Given Documented by: MATILDA Non-Admin Reason: Physician Held Med Vitamin D (Cholecalciferol (Vitamin D3) 25 Mcg Tablet) 25 mcg PO DAILY [facility] Last Admin: 04/13/21 08:51 Dose: Not Given Documented by: MATILDA Non-Admin Reason: Patient Refused Labs CBC & Chem 7: 04/14/21 05:36 04/14/21 05:36 Labs: Laboratory Results - last 24 hr 04/13/21 04/13/21 04/13/21 11:17 16:34 20:29 MCV MCH MCHC RDW Plt Count MPV Absolute Nucleated RBC Nucleated RBC % (auto) Anion Gap Estim Creat Clear Calc Estimated GFR POC Glucose 227 H 108 158 H Fasting Glucose Calcium 04/14/21 04/14/21 04/14/21 05:36 05:36 07:21 MCV 105.0 H MCH 33.0 MCHC 31.4 RDW 16.1 H Plt Count 211 MPV 9.9 Absolute Nucleated RBC 0.000 Nucleated RBC % (auto) 0.0 Anion Gap 10 L Estim Creat Clear Calc 52.4 Estimated GFR > 60 POC Glucose 187 H Fasting Glucose 194 H Calcium 8.4 Microbiology Microbiology Results: Microbiology 04/12/21 22:23 Blood Culture - Preliminary Blood - Venous No growth after 24 hours. 04/12/21 22:27 Blood Culture - Preliminary Blood - Venous No growth after 24 hours. Assessment and Plan (1) Chronic systolic CHF (congestive heart failure): Status: Acute (2) Femur fracture, right: Status: Acute (3) Atrial fibrillation: Status: Acute (4) Diabetes mellitus, type 2: Status: Acute (5) Hypothyroidism: Status: Acute Assessment and Plan: 85F presented with inability to stand due to right hip fracture from fall right hip fracture holding eliquis for surgery planned for today, but now postponed due to elevated INR 1.9,s/p vitk and 2 units ffp patient is high risk, discussed with HCP, patient's daughter, would like to pursue surgery despite high risk as it is the best option for any favorable outcome. cardiology appreciated, risk unmodifiable elecated INR 2.4 on admission, held eliquis, now 1.9 likely element of vit k defeciency due to poor intake and antibiotics will give vit k, ffp, recheck later today chronic systolic chf, severe pulmonary htn, pericardial effusion metoprolol patient appears dry, will hold torsemide, given 1L and hypotension resolved, continue mainaintance fluids permanent atrial fibrillation metoprolol eliquis on hold for surgery history of CVA with residual dysphagia, dysarthria, right hemiparesis (right hemiparesis appears resolved) NDD2 solids, nectar thick liquids holding eliquis continue statin DM with hypoglycemia due to poor intake hypoglecemia resolved continue d51/2ns, can cover with insulin as needed, monitor poc CKD III stable, monitor bmp anemia dilutaional, inflammatory, monitor cbc, no indication for transfusion at this time (TACO risk), type and screen preop hypothyroid synthroid DNR/DNI Quality Stroke Does the patient have a stroke diagnosis?: No VTE Prior VTE?: No VTE Risk Level:: Medical - moderate - high VTE Device Contraindication: Treatment Not Indicated VTE Drug Contraindication: N/A - Med Ordered
[2021-04-14] MEDS: Metoprolol Tartrate 12.5 MG HALFTAB 6.25 MG PO ×2 (09:04→21:07)
[2021-04-14 09:21] LABS: INTERNATIONAL NORM RATIO 1.9 (0.9-1.1)
--- NOTE | 2021-04-14 10:08 | MHC.CLN ---
F/U DIET=NPO FOR HIP SURGERY TODAY. PO 0-25% X 2 DAYS PRIOR TO NPO. CONTINUE TO FOLLOW.
[2021-04-14] MEDS: oxyCODONE HCl Immed Release 5 MG TABLET PO ×2 (10:36→16:39)
[2021-04-14 11:26] LABS: Glucose, Whole Blood 217 mg/dL (60-115)
[2021-04-14] MEDS: Phytonadione (Vit K1) 5 MG in 0.9 % Sodium Chloride 50 ML 50.5 MG IV (11:33)
[2021-04-14 16:11] LABS: INTERNATIONAL NORM RATIO 1.7 (0.9-1.1); Prothrombin Time 19.2 SEC (9.9-13.0)
[2021-04-14 16:18] LABS: Glucose, Whole Blood 213 mg/dL (60-115)
[2021-04-14] MEDS: Dextrose 5 % and 0.45 % NaCl 1,000 ML 50 ML IVCONT (16:38)
[2021-04-14] MEDS: Insulin Lispro 100 UNIT/ML 3 ML VIAL SUBCUT (16:39)
[2021-04-14] MEDS: 0.9 % Sodium Chloride Flush 3 ML SYRINGE IVFLUSH (16:43)
[2021-04-14 20:28] LABS: Glucose, Whole Blood 130 mg/dL (60-115)
[2021-04-14] MEDS: Atorvastatin Calcium 10 MG TABLET PO (21:08)
[2021-04-14] MEDS: Magnesium Oxide 400 MG TABLET PO (21:08)
[2021-04-15] VITALS (9 sets, daily range): BP systolic 109–159; BP diastolic 51–76; PULSE 72–94; RESP 16–18; TEMP 36.1–37.4; O2SAT 95–100
[2021-04-15] MEDS: 0.9 % Sodium Chloride Flush 3 ML SYRINGE IVFLUSH (05:20)
[2021-04-15 06:11] LABS: Hemoglobin 9.2 g/dl (12.0-16.0); Mean Corpuscular HGB Conc 31.7 g/dl (31.0-35.0); Mean Corpuscular Volume 103.9 fL (80-98); Mean Platelet Volume 9.8 fL (9.4-12.3); Platelet Count 225 X10*3/uL (160-400); Red Blood Count 2.79 X10*6/uL (4.20-5.50); Red Cell Distribution Width 15.9 % (11.0-16.0); White Blood Count 6.1 X10*3/uL (4.8-10.8)
[2021-04-15 06:12] LABS: INTERNATIONAL NORM RATIO 1.4 (0.9-1.1); Prothrombin Time 15.6 SEC (9.9-13.0)
[2021-04-15 06:40] LABS: Anion Gap 11 (12-20); Blood Urea Nitrogen 8 mg/dL (9-16); Calcium 8.2 mg/dL (8.4-10.2); Carbon Dioxide 26 mmol/L (22-29); Chloride 105 mmol/L (96-108); Creatinine Clr Calc Pharmacy 56.2; Estimated Glomerular Filt Rate > 60; Glucose Fasting 162 mg/dL (60-99); Potassium 3.9 mmol/L (3.3-5.1); Sodium 138 mmol/L (135-145)
[2021-04-15 07:37] LABS: Glucose, Whole Blood 154 mg/dL (60-115)
--- NOTE | 2021-04-15 08:08 | HO.PM.IMPN ---
Subjective Subjective Date of Service: 04/15/21 Interval History: cc: fall, femur fracture interval history: no pain while lying in bed, wants to go home Cardiovascular Cardiovascular: Reports no additional cardiovascular complaints Respiratory Respiratory: Reports no additional respiratory complaints Physical Exam Vital Signs: Vital Signs: Last Vital Signs Temp 97.0 F 04/15/21 07:20 Pulse 78 04/15/21 07:20 Resp 18 04/15/21 07:20 BP 159/59 H 04/15/21 07:20 Pulse Ox 98 04/15/21 07:20 Body Mass Index 22.8 General: alert, able to talk in dive[place], but not limited Resp:? diminished, no accessory muscles used CVS: S1,S2,RRR, 3+ edema with blister on RLE present on admission GI: soft, non tender, non distended Neuro:? moving all extremities Psych: appropriate affect, impaired insight? Objective Data Active Medications Acetaminophen (Acetaminophen 325 Mg Tablet) 650 mg PO Q6H PRN PRN Reason: Pain, Mild (Pain Scale 1-3) Atorvastatin Calcium (Atorvastatin Calcium 10 Mg Tablet) 10 mg PO BEDTIME [facility] Last Admin: 04/14/21 21:08 Dose: 10 mg Documented by: CECI Dextrose (Dextrose 50 % 25 Gm/50 Ml Vial) 25 gm IVPUSH Q15M PRN; Protocol PRN Reason: per Hypoglycemia Standing Ord. Last Admin: 04/12/21 16:25 Dose: 25 gm Documented by: PATO Glucose (Glucose Gel 15 Gm Gel..Gram.) 15 gm PO Q15M PRN; Protocol PRN Reason: per Hypoglycemia Standing Ord. Dextrose/Sodium Chloride (D51/2ns) 1,000 mls @ 50 mls/hr IVCONT .Q20H [facility] Last Admin: 04/14/21 16:38 Dose: 50 mls/hr Documented by: MYLENE Insulin Human Lispro (Insulin Lispro 100 Unit/Ml 3 Ml Vial) 0 unit SUBCUT QIDACHS [facility]; Protocol Last Admin: 04/15/21 07:53 Dose: Not Given Documented by: JEFFY Non-Admin Reason: NPO Levothyroxine Sodium (Levothyroxine Sodium 112 Mcg Tablet) 112 mcg PO DAILY@0600 [facility] Last Admin: 04/15/21 05:52 Dose: Not Given Documented by: CECI Non-Admin Reason: NPO Magnesium Oxide (Magnesium Oxide 400 Mg Tablet) 400 mg PO BID [facility] Last Admin: 04/14/21 21:08 Dose: 400 mg Documented by: CECI Melatonin (Melatonin 3 Mg Tablet) 6 mg PO BEDTIME PRN PRN Reason: Insomnia Metoprolol Tartrate (Metoprolol Tartrate 12.5 Mg Halftab) 6.25 mg PO BID [facility] Last Admin: 04/14/21 21:07 Dose: 6.25 mg Documented by: CCEI Oxycodone HCl (Oxycodone Hcl Immed Release 5 Mg Tablet) 5 mg PO Q6H PRN PRN Reason: Pain, Severe (Pain Scale 7-10) Last Admin: 04/14/21 16:39 Dose: 5 mg Documented by: MYLENE Pharmacy Consult (Consult Rx Perform Med Rec) 1 each MISCELLANE ONCE PRN PRN Reason: Consult order Senna (Sennosides 8.6 Mg Tablet) 17.2 mg PO BEDTIME PRN PRN Reason: Constipation Sodium Chloride (0.9 % Sodium Chloride Flush 3 Ml Syringe) 3 ml IVFLUSH QSHIFT [facility] Last Admin: 04/15/21 05:20 Dose: 3 ml Documented by: CECI Vitamin D (Cholecalciferol (Vitamin D3) 25 Mcg Tablet) 25 mcg PO DAILY [facility] Last Admin: 04/14/21 09:03 Dose: Not Given Documented by: MYLENE Non-Admin Reason: NPO Labs CBC & Chem 7: 04/15/21 05:47 04/15/21 05:47 Labs: Laboratory Results - last 24 hr 04/14/21 04/14/21 04/14/21 08:56 08:56 11:18 MCV MCH MCHC RDW Plt Count MPV Absolute Nucleated RBC Nucleated RBC % (auto) PT 22.0 H D INR 1.9 H Anion Gap Estim Creat Clear Calc Estimated GFR POC Glucose 217 H Fasting Glucose Calcium Blood Type A Positive Antibody Screen NEGATIVE 04/14/21 04/14/21 04/14/21 15:44 16:13 20:22 MCV MCH MCHC RDW Plt Count MPV Absolute Nucleated RBC Nucleated RBC % (auto) PT 19.2 H INR 1.7 H Anion Gap Estim Creat Clear Calc Estimated GFR POC Glucose 213 H 130 H Fasting Glucose Calcium Blood Type Antibody Screen 04/15/21 04/15/21 04/15/21 05:47 05:47 05:47 MCV 103.9 H MCH 33.0 MCHC 31.7 RDW 15.9 Plt Count 225 MPV 9.8 Absolute Nucleated RBC 0.000 Nucleated RBC % (auto) 0.0 PT 15.6 H INR 1.4 H Anion Gap 11 L Estim Creat Clear Calc 56.2 Estimated GFR > 60 POC Glucose Fasting Glucose 162 H Calcium 8.2 L Blood Type Antibody Screen 04/15/21 07:19 MCV MCH MCHC RDW Plt Count MPV Absolute Nucleated RBC Nucleated RBC % (auto) PT INR Anion Gap Estim Creat Clear Calc Estimated GFR POC Glucose 154 H Fasting Glucose Calcium Blood Type Antibody Screen Microbiology Microbiology Results: Microbiology 04/12/21 22:23 Blood Culture - Preliminary Blood - Venous No growth after 48 hours. 04/12/21 22:27 Blood Culture - Preliminary Blood - Venous No growth after 48 hours. Assessment and Plan (1) Chronic systolic CHF (congestive heart failure): Status: Acute (2) Femur fracture, right: Status: Acute (3) Atrial fibrillation: Status: Acute (4) Diabetes mellitus, type 2: Status: Acute (5) Hypothyroidism: Status: Acute Assessment and Plan: 85F presented with inability to stand due to right hip fracture from fall right hip fracture holding eliquis for surgery inr 1.4 after vitk and 2 FFPS surgery postponed today due to lack of ICU bed availability patient is high risk, discussed with HCP, patient's daughter, would like to pursue surgery despite high risk as it is the best option for any favorable outcome. cardiology appreciated, risk unmodifiable elevated INR eliquis should be out of system likely element of vit k defeciency due to poor intake and antibiotics now 1.4 after vitk and ffps chronic systolic chf, severe pulmonary htn, pericardial effusion metoprolol now euvolemic appearing, peripheral edema more 3rd spacing due to low protein, albumin permanent atrial fibrillation metoprolol eliquis on hold for surgery history of CVA with residual dysphagia, dysarthria NDD2 solids, nectar thick liquids holding eliquis continue statin DM with hypoglycemia due to poor intake hypoglecemia resolved continue d51/2ns, can cover with insulin as needed, monitor poc CKD III listed in medical history, creatinine has been normal here anemia dilutaional, inflammatory, monitor cbc, no indication for transfusion at this time (TACO risk), type and screen preop hgb stable today - 9.2 hypothyroid synthroid DNR/DNI Quality Stroke Does the patient have a stroke diagnosis?: No VTE Prior VTE?: No VTE Risk Level:: Medical - moderate - high VTE Device Contraindication: Treatment Not Indicated VTE Drug Contraindication: N/A - Med Ordered
[2021-04-15] MEDS: Dextrose 5 % and 0.45 % NaCl 1,000 ML 50 ML IVCONT (08:29)
[2021-04-15] MEDS: Metoprolol Tartrate 12.5 MG HALFTAB 6.25 MG PO ×2 (08:30→21:10)
[2021-04-15 11:48] LABS: Glucose, Whole Blood 161 mg/dL (60-115)
[2021-04-15] MEDS: Insulin Lispro 100 UNIT/ML 3 ML VIAL SUBCUT ×3 (12:06→21:11)
[2021-04-15] MEDS: oxyCODONE HCl Immed Release 5 MG TABLET PO (13:23)
[2021-04-15 16:19] LABS: Glucose, Whole Blood 187 mg/dL (60-115)
[2021-04-15] MEDS: Acetaminophen 325 MG TABLET 650 MG PO (17:29)
[2021-04-15 20:12] LABS: Glucose, Whole Blood 192 mg/dL (60-115)
[2021-04-15] MEDS: Magnesium Oxide 400 MG TABLET PO (21:11)
[2021-04-15] MEDS: Atorvastatin Calcium 10 MG TABLET PO (21:11)
[2021-04-16] VITALS (13 sets, daily range): BP systolic 90–149; BP diastolic 43–88; PULSE 80–108; RESP 15–20; TEMP 35.9–36.8; O2SAT 92–100
[2021-04-16] MEDS: Dextrose 5 % and 0.45 % NaCl 1,000 ML 50 ML IVCONT ×2 (03:55→21:58)
[2021-04-16 05:59] LABS: Hematocrit 31.2 % (37-47); Hemoglobin 9.8 g/dl (12.0-16.0); Mean Corpuscular HGB Conc 31.4 g/dl (31.0-35.0); Mean Corpuscular Hemoglobin 32.5 pg (27.0-33.0); Mean Corpuscular Volume 103.3 fL (80-98); Mean Platelet Volume 9.7 fL (9.4-12.3); Platelet Count 209 X10*3/uL (160-400); Red Blood Count 3.02 X10*6/uL (4.20-5.50); Red Cell Distribution Width 15.7 % (11.0-16.0); White Blood Count 4.4 X10*3/uL (4.8-10.8)
[2021-04-16 06:25] LABS: Anion Gap 11 (12-20); Blood Urea Nitrogen 9 mg/dL (9-16); Calcium 7.7 mg/dL (8.4-10.2); Carbon Dioxide 25 mmol/L (22-29); Chloride 106 mmol/L (96-108); Creatinine Clr Calc Pharmacy 58.7; Estimated Glomerular Filt Rate > 60; Glucose Fasting 124 mg/dL (60-99); Sodium 138 mmol/L (135-145)
[2021-04-16 07:39] LABS: Glucose, Whole Blood 124 mg/dL (60-115)
[2021-04-16] MEDS: Metoprolol Tartrate 12.5 MG HALFTAB 6.25 MG PO ×2 (08:18→21:51)
--- NOTE | 2021-04-16 09:22 | P.PNIM_ITS ---
Subjective Subjective Date of Service: 04/16/21 Interval History: cc: fall, femur fracture wants to go home, no pain at rest Cardiovascular Cardiovascular: Reports no additional cardiovascular complaints Respiratory Respiratory: Reports no additional respiratory complaints Physical Exam Vital Signs: Vital Signs: Last Vital Signs Temp 97.8 F 04/16/21 07:31 Pulse 81 04/16/21 07:31 Resp 18 04/16/21 07:31 BP 144/67 H 04/16/21 07:31 Pulse Ox 100 04/16/21 07:31 Body Mass Index 22.8 General: alert, able to talk in nam[place]ian, but limited Resp:? diminished, no accessory muscles used CVS: S1,S2,RRR, 3+ edema GI: soft, non tender, non distended Neuro:? moving all extremities Psych: appropriate affect, impaired insight? Objective Data Active Medications Acetaminophen (Acetaminophen 325 Mg Tablet) 650 mg PO Q6H PRN PRN Reason: Pain, Mild (Pain Scale 1-3) Last Admin: 04/15/21 17:29 Dose: 650 mg Documented by: JEFFY Atorvastatin Calcium (Atorvastatin Calcium 10 Mg Tablet) 10 mg PO BEDTIME [facility] Last Admin: 04/15/21 21:11 Dose: 10 mg Documented by: CECI Dextrose (Dextrose 50 % 25 Gm/50 Ml Vial) 25 gm IVPUSH Q15M PRN; Protocol PRN Reason: per Hypoglycemia Standing Ord. Last Admin: 04/12/21 16:25 Dose: 25 gm Documented by: PATO Glucose (Glucose Gel 15 Gm Gel..Gram.) 15 gm PO Q15M PRN; Protocol PRN Reason: per Hypoglycemia Standing Ord. Dextrose/Sodium Chloride (D51/2ns) 1,000 mls @ 50 mls/hr IVCONT .Q20H [facility] Last Admin: 04/16/21 03:55 Dose: 50 mls/hr Documented by: CECI Insulin Human Lispro (Insulin Lispro 100 Unit/Ml 3 Ml Vial) 0 unit SUBCUT QIDACHS [facility]; Protocol Last Admin: 04/16/21 08:08 Dose: Not Given Documented by: CONSTANTINE Non-Admin Reason: No Insulin Coverage Levothyroxine Sodium (Levothyroxine Sodium 112 Mcg Tablet) 112 mcg PO DAILY@0600 [facility] Last Admin: 04/16/21 06:06 Dose: Not Given Documented by: CECI Non-Admin Reason: NPO Magnesium Oxide (Magnesium Oxide 400 Mg Tablet) 400 mg PO BID [facility] Last Admin: 04/16/21 08:08 Dose: Not Given Documented by: CONSTANTINE Non-Admin Reason: NPO Melatonin (Melatonin 3 Mg Tablet) 6 mg PO BEDTIME PRN PRN Reason: Insomnia Metoprolol Tartrate (Metoprolol Tartrate 12.5 Mg Halftab) 6.25 mg PO BID [facility] Last Admin: 04/16/21 08:18 Dose: 6.25 mg Documented by: CONSTANTINE Oxycodone HCl (Oxycodone Hcl Immed Release 5 Mg Tablet) 5 mg PO Q6H PRN PRN Reason: Pain, Severe (Pain Scale 7-10) Last Admin: 04/15/21 13:23 Dose: 5 mg Documented by: JEFFY Pharmacy Consult (Consult Rx Perform Med Rec) 1 each MISCELLANE ONCE PRN PRN Reason: Consult order Senna (Sennosides 8.6 Mg Tablet) 17.2 mg PO BEDTIME PRN PRN Reason: Constipation Sodium Chloride (0.9 % Sodium Chloride Flush 3 Ml Syringe) 3 ml IVFLUSH QSHIFT [facility] Last Admin: 04/16/21 08:09 Dose: Not Given Documented by: CONSTANTINE Non-Admin Reason: IV Running Vitamin D (Cholecalciferol (Vitamin D3) 25 Mcg Tablet) 25 mcg PO DAILY [facility] Last Admin: 04/16/21 08:08 Dose: Not Given Documented by: CONSTANTINE Non-Admin Reason: NPO Labs CBC & Chem 7: 04/16/21 05:35 04/16/21 05:35 Labs: Laboratory Results - last 24 hr 04/15/21 04/15/21 04/15/21 11:32 16:15 20:01 MCV MCH MCHC RDW Plt Count MPV Absolute Nucleated RBC Nucleated RBC % (auto) Anion Gap Estim Creat Clear Calc Estimated GFR POC Glucose 161 H 187 H 192 H Fasting Glucose Calcium 04/16/21 04/16/21 04/16/21 05:35 05:35 07:31 MCV 103.3 H MCH 32.5 MCHC 31.4 RDW 15.7 Plt Count 209 MPV 9.7 Absolute Nucleated RBC 0.000 Nucleated RBC % (auto) 0.0 Anion Gap 11 L Estim Creat Clear Calc 58.7 Estimated GFR > 60 POC Glucose 124 H Fasting Glucose 124 H Calcium 7.7 L D Assessment and Plan (1) Chronic systolic CHF (congestive heart failure): Status: Acute (2) Femur fracture, right: Status: Acute (3) Atrial fibrillation: Status: Acute (4) Diabetes mellitus, type 2: Status: Acute (5) Hypothyroidism: Status: Acute Assessment and Plan: 85F presented with inability to stand due to right hip fracture from fall right hip fracture holding eliquis for surgery patient is high risk, discussed with HCP, patient's daughter, would like to pursue surgery despite high risk as it is the best option for any favorable outcome. cardiology appreciated, risk unmodifiable elevated INR eliquis should be out of system likely element of vit k defeciency due to poor intake and antibiotics now 1.4 after vitk and ffps chronic systolic chf, severe pulmonary htn, pericardial effusion metoprolol now euvolemic appearing, peripheral edema more 3rd spacing due to low protein, albumin, holding torsemide permanent atrial fibrillation metoprolol eliquis on hold for surgery history of CVA with residual dysphagia, dysarthria NDD2 solids, nectar thick liquids holding eliquis continue statin DM with hypoglycemia due to poor intake hypoglecemia resolved continue d51/2ns, can cover with insulin as needed, monitor poc CKD III listed in medical history, creatinine has been normal here anemia dilutaional, inflammatory, monitor cbc, no indication for transfusion at this time (TACO risk), type and screen preop hgb stable - 9.2 yesterday hypothyroid synthroid DNR/DNI Quality Stroke Does the patient have a stroke diagnosis?: No VTE Prior VTE?: No VTE Risk Level:: Medical - moderate - high VTE Device Contraindication: Treatment Not Indicated VTE Drug Contraindication: N/A - Med Ordered
[2021-04-16 09:40] LABS: INTERNATIONAL NORM RATIO 1.5 (0.9-1.1); Prothrombin Time 16.6 SEC (9.9-13.0)
[2021-04-16 12:10] LABS: Glucose, Whole Blood 153 mg/dL (60-115)
--- NOTE | 2021-04-16 13:17 | HO.ANESPROP2 ---
HPI - Anesthesia Eval Consult details Narrative: right femur fracture [facility] Active Problems Active Problems: All Active Problems (Updated 04/12/21 @ 14:02 by Mandy Dockery PA-C) Femoral neck fracture (Acute) Preoperative cardiovascular examination (Acute) Pericardial effusion (Acute) Presence of cardiac pacemaker (Acute) Persistent atrial fibrillation (Acute) Chronic systolic CHF (congestive heart failure) (Acute) Hypercholesteremia (Acute) Hypertension (Acute) Hypothyroidism (Acute) Diabetes mellitus, type 2 (Acute) Femur fracture, right (Acute) Atrial fibrillation (Acute) Past Medical History Medical History (Updated 04/12/21 @ 14:02 by Mandy Dockery PA-C) Atrial fibrillation Chronic systolic CHF (congestive heart failure) CKD (chronic kidney disease), stage III CVA (cerebral vascular accident) Diabetes mellitus, type 2 Dysphagia Hypercholesteremia Hypertension Hypothyroidism Pacemaker Pericardial effusion Family History Family History (Updated 04/12/21 @ 07:54 by Seamus Ceja MD) Mother CAD (coronary artery disease) Family history of problems with anesthesia: No Surgical History History of Problems with Anesthesia: No Social History Social History (Updated 04/12/21 @ 07:54 by Seamus Ceja MD) Household Members: Other Housing: [facility] Unable to assess alcohol history related to: Unknown Alcohol intake: current Patient Tobacco Use Status: Tobacco use Unknown Use of substances other than those prescribed or required for medical reasons: No Currently Displaying Signs/Symptoms of Drug Intoxication Withdrawal: No Advance Directives: No Do you have thoughts of harming others: None Do you have a plan to hurt others: No Plan Recently lost weight without trying: No service: No Current occupational status: retired [employer] Allergies Allergy/AdvReac Type Severity Reaction Status Date / Time No Known Allergies Allergy Verified 04/11/21 20:15 Active Medications: Current Medications Acetaminophen (Acetaminophen 325 Mg Tablet) 650 mg PO Q6H PRN PRN Reason: Pain, Mild (Pain Scale 1-3) Last Admin: 04/15/21 17:29 Dose: 650 mg Documented by: Atorvastatin Calcium (Atorvastatin Calcium 10 Mg Tablet) 10 mg PO BEDTIME JYOTSNA Last Admin: 04/15/21 21:11 Dose: 10 mg Documented by: Dextrose (Dextrose 50 % 25 Gm/50 Ml Vial) 25 gm IVPUSH Q15M PRN; Protocol PRN Reason: per Hypoglycemia Standing Ord. Last Admin: 04/12/21 16:25 Dose: 25 gm Documented by: Glucose (Glucose Gel 15 Gm Gel..Gram.) 15 gm PO Q15M PRN; Protocol PRN Reason: per Hypoglycemia Standing Ord. Dextrose/Sodium Chloride (D51/2ns) 1,000 mls @ 50 mls/hr IVCONT .Q20H [facility] Last Admin: 04/16/21 03:55 Dose: 50 mls/hr Documented by: Insulin Human Lispro (Insulin Lispro 100 Unit/Ml 3 Ml Vial) 0 unit SUBCUT QIDACHS [facility]; Protocol Last Admin: 04/16/21 12:30 Dose: Not Given Documented by: Levothyroxine Sodium (Levothyroxine Sodium 112 Mcg Tablet) 112 mcg PO DAILY@0600 [facility] Last Admin: 04/16/21 06:06 Dose: Not Given Documented by: Magnesium Oxide (Magnesium Oxide 400 Mg Tablet) 400 mg PO BID [facility] Last Admin: 04/16/21 08:08 Dose: Not Given Documented by: Melatonin (Melatonin 3 Mg Tablet) 6 mg PO BEDTIME PRN PRN Reason: Insomnia Metoprolol Tartrate (Metoprolol Tartrate 12.5 Mg Halftab) 6.25 mg PO BID [facility] Last Admin: 04/16/21 08:18 Dose: 6.25 mg Documented by: Oxycodone HCl (Oxycodone Hcl Immed Release 5 Mg Tablet) 5 mg PO Q6H PRN PRN Reason: Pain, Severe (Pain Scale 7-10) Last Admin: 04/15/21 13:23 Dose: 5 mg Documented by: Pharmacy Consult (Consult Rx Perform Med Rec) 1 each MISCELLANE ONCE PRN PRN Reason: Consult order Senna (Sennosides 8.6 Mg Tablet) 17.2 mg PO BEDTIME PRN PRN Reason: Constipation Sodium Chloride (0.9 % Sodium Chloride Flush 3 Ml Syringe) 3 ml IVFLUSH QSHIFT [facility] Last Admin: 04/16/21 08:09 Dose: Not Given Documented by: Vitamin D (Cholecalciferol (Vitamin D3) 25 Mcg Tablet) 25 mcg PO DAILY [facility] Last Admin: 04/16/21 08:08 Dose: Not Given Documented by: Home Medications Medication Instructions Recorded Confirmed Last Taken Type acetaminophen 500 mg tablet 500 mg PO Q8H PRN 04/11/21 04/11/21 Unknown History apixaban 5 mg tablet (Eliquis) 5 mg PO BID 04/11/21 04/11/21 Unknown History bisoprolol fumarate 5 mg tablet 1.25 mg PO DAILY 04/11/21 04/11/21 Unknown History calcium carbonate 500 mg calcium 500 mg PO BID 04/11/21 04/11/21 Unknown History (1,250 mg) tablet cholecalciferol (vitamin D3) 25 25 mcg PO DAILY 04/11/21 04/11/21 Unknown History mcg (1,000 unit) tablet (Vitamin D3) insulin lispro 100 unit/mL See Protocol 04/11/21 04/11/21 Unknown History subcutaneous pen levothyroxine 112 mcg tablet 112 mcg PO DAILY 04/11/21 04/11/21 Unknown History magnesium oxide 400 mg PO BID 04/11/21 04/11/21 Unknown History metformin 500 mg tablet 500 mg PO BID 04/11/21 04/11/21 Unknown History miconazole nitrate 2 % topical 1 appl TOPICAL BID 04/11/21 04/11/21 Unknown History cream ondansetron HCl 4 mg tablet 4 mg PO Q6H PRN 04/11/21 04/11/21 Unknown History (Zofran) simvastatin 20 mg tablet 20 mg PO BEDTIME 04/11/21 04/11/21 Unknown History sitagliptin 50 mg tablet (Januvia) 50 mg PO DAILY 04/11/21 04/11/21 Unknown History torsemide 10 mg tablet 10 mg PO DAILY 04/11/21 04/11/21 Unknown History Exam Exam Date and Time: April 16, 2021 1317 Height,Weight and Vital Signs: Height 5 ft 6 in Weight 64.3 kg Last Vital Signs Temp 98.3 F 04/16/21 12:00 Pulse 86 04/16/21 12:00 Resp 18 04/16/21 12:00 BP 101/61 04/16/21 12:00 Pulse Ox 95 04/16/21 12:00 Pertinent Lab Results Pertinent Lab Results: Laboratory Tests 04/11/21 04/11/21 04/11/21 21:46 21:46 21:46 WBC 5.2 RBC 3.23 L Hgb 10.7 L Hct 33.3 L MCV 103.1 H MCH 33.1 H MCHC 32.1 RDW 16.7 H Plt Count 226 MPV 10.0 Immature Gran % (Auto) 0.2 Neut % (Auto) 66.4 Lymph % (Auto) 19.8 L [place] % (Auto) 11.3 H Eos % (Auto) 1.7 Baso % (Auto) 0.6 Lymph # (Auto) 1.0 L [place] # (Auto) 0.6 Eos # (Auto) 0.1 Baso # (Auto) 0.0 Abs Immat Gran (auto) 0.01 Absolute Neuts (auto) 3.5 Absolute Nucleated RBC 0.000 Nucleated RBC % (auto) 0.0 PT 27.7 H INR 2.4 H APTT 37.9 Sodium 139 Potassium 4.6 Chloride 102 Carbon Dioxide 26 Anion Gap 16 BUN 19 H Creatinine 1.11 Estim Creat Clear Calc 35.9 Estimated GFR 47 POC Glucose Random Glucose 253 H Fasting Glucose Calcium 8.5 Magnesium Troponin I High Sens B-Natriuretic Peptide Albumin Urine Color Urine Appearance Urine pH Ur Specific [place] Urine Protein Urine Glucose (UA) Urine Ketones Urine Blood Urine Nitrite Ur Leukocyte Esterase Urine RBC Urine WBC Ur Squamous Epith Cells Urine Bacteria Hyaline Casts COVID-19 (MAHAD) COVID-19 Clin Com Blood Type Antibody Screen 04/11/21 04/11/21 04/11/21 21:46 21:46 22:32 WBC RBC Hgb Hct MCV MCH MCHC RDW Plt Count MPV Immature Gran % (Auto) Neut % (Auto) Lymph % (Auto) [place] % (Auto) Eos % (Auto) Baso % (Auto) Lymph # (Auto) [place] # (Auto) Eos # (Auto) Baso # (Auto) Abs Immat Gran (auto) Absolute Neuts (auto) Absolute Nucleated RBC Nucleated RBC % (auto) PT INR APTT Sodium Potassium Chloride Carbon Dioxide Anion Gap BUN Creatinine Estim Creat Clear Calc Estimated GFR POC Glucose Random Glucose Fasting Glucose Calcium Magnesium Troponin I High Sens B-Natriuretic Peptide 1337 H Albumin Urine Color YELLOW Urine Appearance CLEAR Urine pH 6.5 Ur Specific [place] 1.010 Urine Protein NEG Urine Glucose (UA) NEG Urine Ketones NEG Urine Blood NEG Urine Nitrite NEG Ur Leukocyte Esterase NEG Urine RBC 0-2 Urine WBC 0-2 Ur Squamous Epith Cells NONE Urine Bacteria NONE Hyaline Casts 10-14 COVID-19 (MAHAD) Negative COVID-19 Clin Com See Note Blood Type Antibody Screen 04/12/21 04/12/21 04/12/21 01:08 01:12 02:40 WBC RBC Hgb Hct MCV MCH MCHC RDW Plt Count MPV Immature Gran % (Auto) Neut % (Auto) Lymph % (Auto) [place] % (Auto) Eos % (Auto) Baso % (Auto) Lymph # (Auto) [place] # (Auto) Eos # (Auto) Baso # (Auto) Abs Immat Gran (auto) Absolute Neuts (auto) Absolute Nucleated RBC Nucleated RBC % (auto) PT INR APTT Sodium Potassium Chloride Carbon Dioxide Anion Gap BUN Creatinine Estim Creat Clear Calc Estimated GFR POC Glucose 230 H Random Glucose Fasting Glucose Calcium Magnesium Troponin I High Sens 31.3 H* 25.0 H* B-Natriuretic Peptide Albumin Urine Color Urine Appearance Urine pH Ur Specific [place] Urine Protein Urine Glucose (UA) Urine Ketones Urine Blood Urine Nitrite Ur Leukocyte Esterase Urine RBC Urine WBC Ur Squamous Epith Cells Urine Bacteria Hyaline Casts COVID-19 (MAHAD) COVID-19 Clin Com Blood Type Antibody Screen 04/12/21 04/12/21 04/12/21 05:13 05:13 07:23 WBC 4.5 L RBC 3.16 L Hgb 10.4 L Hct 32.4 L MCV 102.5 H MCH 32.9 MCHC 32.1 RDW 16.3 H Plt Count 236 MPV 10.0 Immature Gran % (Auto) 0.2 Neut % (Auto) 65.7 Lymph % (Auto) 20.2 [place] % (Auto) 11.0 Eos % (Auto) 2.2 Baso % (Auto) 0.7 Lymph # (Auto) 0.9 L [place] # (Auto) 0.5 Eos # (Auto) 0.1 Baso # (Auto) 0.0 Abs Immat Gran (auto) 0.01 Absolute Neuts (auto) 2.9 Absolute Nucleated RBC 0.000 Nucleated RBC % (auto) 0.0 PT INR APTT Sodium 137 Potassium 4.3 Chloride 101 Carbon Dioxide 29 Anion Gap 11 L BUN 18 H Creatinine 1.01 Estim Creat Clear Calc 39.4 Estimated GFR 52 POC Glucose 211 H Random Glucose 263 H Fasting Glucose Calcium 8.4 Magnesium 1.9 Troponin I High Sens B-Natriuretic Peptide Albumin Urine Color Urine Appearance Urine pH Ur Specific [place] Urine Protein Urine Glucose (UA) Urine Ketones Urine Blood Urine Nitrite Ur Leukocyte Esterase Urine RBC Urine WBC Ur Squamous Epith Cells Urine Bacteria Hyaline Casts COVID-19 (MAHAD) COVID-19 [facility] Blood Type Antibody Screen 04/12/21 04/12/21 04/12/21 11:48 16:18 16:49 WBC RBC Hgb Hct MCV MCH MCHC RDW Plt Count MPV Immature Gran % (Auto) Neut % (Auto) Lymph % (Auto) [place] % (Auto) Eos % (Auto) Baso % (Auto) Lymph # (Auto) [place] # (Auto) Eos # (Auto) Baso # (Auto) Abs Immat Gran (auto) Absolute Neuts (auto) Absolute Nucleated RBC Nucleated RBC % (auto) PT INR APTT Sodium Potassium Chloride Carbon Dioxide Anion Gap BUN Creatinine Estim Creat Clear Calc Estimated GFR POC Glucose 137 H 27 L* 58 L* Random Glucose Fasting Glucose Calcium Magnesium Troponin I High Sens B-Natriuretic Peptide Albumin Urine Color Urine Appearance Urine pH Ur Specific [place] Urine Protein Urine Glucose (UA) Urine Ketones Urine Blood Urine Nitrite Ur Leukocyte Esterase Urine RBC Urine WBC Ur Squamous Epith Cells Urine Bacteria Hyaline Casts COVID-19 (MAHAD) COVID-19 [facility] Blood Type Antibody Screen 04/12/21 04/12/21 04/12/21 17:34 19:48 20:29 WBC RBC Hgb Hct MCV MCH MCHC RDW Plt Count MPV Immature Gran % (Auto) Neut % (Auto) Lymph % (Auto) [place] % (Auto) Eos % (Auto) Baso % (Auto) Lymph # (Auto) [place] # (Auto) Eos # (Auto) Baso # (Auto) Abs Immat Gran (auto) Absolute Neuts (auto) Absolute Nucleated RBC Nucleated RBC % (auto) PT INR APTT Sodium Potassium Chloride Carbon Dioxide Anion Gap BUN Creatinine Estim Creat Clear Calc Estimated GFR POC Glucose 50 L* 159 H 79 Random Glucose Fasting Glucose Calcium Magnesium Troponin I High Sens B-Natriuretic Peptide Albumin Urine Color Urine Appearance Urine pH Ur Specific [place] Urine Protein Urine Glucose (UA) Urine Ketones Urine Blood Urine Nitrite Ur Leukocyte Esterase Urine RBC Urine WBC Ur Squamous Epith Cells Urine Bacteria Hyaline Casts COVID-19 (MAHAD) COVID-19 [facility] Blood Type Antibody Screen 04/12/21 04/12/21 04/12/21 21:57 22:23 22:23 WBC 5.2 RBC 3.07 L Hgb 10.4 L Hct 32.0 L MCV 104.2 H MCH 33.9 H MCHC 32.5 RDW 16.5 H Plt Count 237 MPV 10.1 Immature Gran % (Auto) 0.6 H Neut % (Auto) 64.8 Lymph % (Auto) 20.0 [place] % (Auto) 8.8 Eos % (Auto) 5.4 H Baso % (Auto) 0.4 Lymph # (Auto) 1.0 L [place] # (Auto) 0.5 Eos # (Auto) 0.3 Baso # (Auto) 0.0 Abs Immat Gran (auto) 0.03 Absolute Neuts (auto) 3.4 Absolute Nucleated RBC 0.000 Nucleated RBC % (auto) 0.0 PT INR APTT Sodium 135 Potassium 4.1 Chloride 101 Carbon Dioxide 28 Anion Gap 10 L BUN 14 Creatinine 0.95 Estim Creat Clear Calc 42.0 Estimated GFR 56 POC Glucose 85 Random Glucose 306 H Fasting Glucose Calcium 7.9 L Magnesium Troponin I High Sens B-Natriuretic Peptide Albumin 2.4 L D Urine Color Urine Appearance Urine pH Ur Specific [place] Urine Protein Urine Glucose (UA) Urine Ketones Urine Blood Urine Nitrite Ur Leukocyte Esterase Urine RBC Urine WBC Ur Squamous Epith Cells Urine Bacteria Hyaline Casts COVID-19 (MAHAD) [employer] Blood Type Antibody Screen 04/12/21 04/13/21 04/13/21 22:23 00:45 04:01 WBC RBC Hgb Hct MCV MCH MCHC RDW Plt Count MPV Immature Gran % (Auto) Neut % (Auto) Lymph % (Auto) [place] % (Auto) Eos % (Auto) Baso % (Auto) Lymph # (Auto) [place] # (Auto) Eos # (Auto) Baso # (Auto) Abs Immat Gran (auto) Absolute Neuts (auto) Absolute Nucleated RBC Nucleated RBC % (auto) PT INR APTT Sodium Potassium Chloride Carbon Dioxide Anion Gap BUN Creatinine Estim Creat Clear Calc Estimated GFR POC Glucose 162 H 221 H Random Glucose Fasting Glucose Calcium Magnesium Troponin I High Sens 23.8 H* B-Natriuretic Peptide Albumin Urine Color Urine Appearance Urine pH Ur Specific [place] Urine Protein Urine Glucose (UA) Urine Ketones Urine Blood Urine Nitrite Ur Leukocyte Esterase Urine RBC Urine WBC Ur Squamous Epith Cells Urine Bacteria Hyaline Casts COVID-19 (MAHAD) [employer] Blood Type Antibody Screen 04/13/21 04/13/21 04/13/21 04:41 04:41 07:15 WBC 4.9 RBC 2.46 L Hgb 8.3 L D Hct 25.9 L MCV 105.3 H MCH 33.7 H MCHC 32.0 RDW 16.2 H Plt Count 186 MPV 9.8 Immature Gran % (Auto) Neut % (Auto) Lymph % (Auto) [place] % (Auto) Eos % (Auto) Baso % (Auto) Lymph # (Auto) [place] # (Auto) Eos # (Auto) Baso # (Auto) Abs Immat Gran (auto) Absolute Neuts (auto) Absolute Nucleated RBC 0.000 Nucleated RBC % (auto) 0.0 PT INR APTT Sodium 138 Potassium 3.9 Chloride 104 Carbon Dioxide 25 Anion Gap 13 BUN 13 Creatinine 0.82 Estim Creat Clear Calc 48.6 Estimated GFR > 60 POC Glucose 212 H Random Glucose Fasting Glucose 229 H Calcium 8.1 L Magnesium Troponin I High Sens B-Natriuretic Peptide Albumin Urine Color Urine Appearance Urine pH Ur Specific [place] Urine Protein Urine Glucose (UA) Urine Ketones Urine Blood Urine Nitrite Ur Leukocyte Esterase Urine RBC Urine WBC Ur Squamous Epith Cells Urine Bacteria Hyaline Casts COVID-19 (MAHAD) [employer] Blood Type Antibody Screen 04/13/21 04/13/21 04/13/21 11:17 16:34 20:29 WBC RBC Hgb Hct MCV MCH MCHC RDW Plt Count MPV Immature Gran % (Auto) Neut % (Auto) Lymph % (Auto) [place] % (Auto) Eos % (Auto) Baso % (Auto) Lymph # (Auto) [place] # (Auto) Eos # (Auto) Baso # (Auto) Abs Immat Gran (auto) Absolute Neuts (auto) Absolute Nucleated RBC Nucleated RBC % (auto) PT INR APTT Sodium Potassium Chloride Carbon Dioxide Anion Gap BUN Creatinine Estim Creat Clear Calc Estimated GFR POC Glucose 227 H 108 158 H Random Glucose Fasting Glucose Calcium Magnesium Troponin I High Sens B-Natriuretic Peptide Albumin Urine Color Urine Appearance Urine pH Ur Specific [place] Urine Protein Urine Glucose (UA) Urine Ketones Urine Blood Urine Nitrite Ur Leukocyte Esterase Urine RBC Urine WBC Ur Squamous Epith Cells Urine Bacteria Hyaline Casts COVID-19 (MAHAD) COVID-19 [employer] Blood Type Antibody Screen 04/14/21 04/14/21 04/14/21 05:36 05:36 07:21 WBC 6.0 RBC 2.61 L Hgb 8.6 L Hct 27.4 L MCV 105.0 H MCH 33.0 MCHC 31.4 RDW 16.1 H Plt Count 211 MPV 9.9 Immature Gran % (Auto) Neut % (Auto) Lymph % (Auto) [place] % (Auto) Eos % (Auto) Baso % (Auto) Lymph # (Auto) [place] # (Auto) Eos # (Auto) Baso # (Auto) Abs Immat Gran (auto) Absolute Neuts (auto) Absolute Nucleated RBC 0.000 Nucleated RBC % (auto) 0.0 PT INR APTT Sodium 138 Potassium 4.1 Chloride 104 Carbon Dioxide 28 Anion Gap 10 L BUN 9 Creatinine 0.76 Estim Creat Clear Calc 52.4 Estimated GFR > 60 POC Glucose 187 H Random Glucose Fasting Glucose 194 H Calcium 8.4 Magnesium Troponin I High Sens B-Natriuretic Peptide Albumin Urine Color Urine Appearance Urine pH Ur Specific [place] Urine Protein Urine Glucose (UA) Urine Ketones Urine Blood Urine Nitrite Ur Leukocyte Esterase Urine RBC Urine WBC Ur Squamous Epith Cells Urine Bacteria Hyaline Casts COVID-19 (MAHAD) COVID-19 [facility] Blood Type Antibody Screen 04/14/21 04/14/21 04/14/21 08:56 08:56 11:18 WBC RBC Hgb Hct MCV MCH MCHC RDW Plt Count MPV Immature Gran % (Auto) Neut % (Auto) Lymph % (Auto) [place] % (Auto) Eos % (Auto) Baso % (Auto) Lymph # (Auto) [place] # (Auto) Eos # (Auto) Baso # (Auto) Abs Immat Gran (auto) Absolute Neuts (auto) Absolute Nucleated RBC Nucleated RBC % (auto) PT 22.0 H D INR 1.9 H APTT Sodium Potassium Chloride Carbon Dioxide Anion Gap BUN Creatinine Estim Creat Clear Calc Estimated GFR POC Glucose 217 H Random Glucose Fasting Glucose Calcium Magnesium Troponin I High Sens B-Natriuretic Peptide Albumin Urine Color Urine Appearance Urine pH Ur Specific [place] Urine Protein Urine Glucose (UA) Urine Ketones Urine Blood Urine Nitrite Ur Leukocyte Esterase Urine RBC Urine WBC Ur Squamous Epith Cells Urine Bacteria Hyaline Casts COVID-19 (MAHAD) COVID-19 [facility] Blood Type A Positive Antibody Screen NEGATIVE 04/14/21 04/14/21 04/14/21 15:44 16:13 20:22 WBC RBC Hgb Hct MCV MCH MCHC RDW Plt Count MPV Immature Gran % (Auto) Neut % (Auto) Lymph % (Auto) [place] % (Auto) Eos % (Auto) Baso % (Auto) Lymph # (Auto) [place] # (Auto) Eos # (Auto) Baso # (Auto) Abs Immat Gran (auto) Absolute Neuts (auto) Absolute Nucleated RBC Nucleated RBC % (auto) PT 19.2 H INR 1.7 H APTT Sodium Potassium Chloride Carbon Dioxide Anion Gap BUN Creatinine Estim Creat Clear Calc Estimated GFR POC Glucose 213 H 130 H Random Glucose Fasting Glucose Calcium Magnesium Troponin I High Sens B-Natriuretic Peptide Albumin Urine Color Urine Appearance Urine pH Ur Specific [place] Urine Protein Urine Glucose (UA) Urine Ketones Urine Blood Urine Nitrite Ur Leukocyte Esterase Urine RBC Urine WBC Ur Squamous Epith Cells Urine Bacteria Hyaline Casts COVID-19 (MAHAD) [employer] Blood Type Antibody Screen 04/15/21 04/15/21 04/15/21 05:47 05:47 05:47 WBC 6.1 RBC 2.79 L Hgb 9.2 L Hct 29.0 L MCV 103.9 H MCH 33.0 MCHC 31.7 RDW 15.9 Plt Count 225 MPV 9.8 Immature Gran % (Auto) Neut % (Auto) Lymph % (Auto) [place] % (Auto) Eos % (Auto) Baso % (Auto) Lymph # (Auto) [place] # (Auto) Eos # (Auto) Baso # (Auto) Abs Immat Gran (auto) Absolute Neuts (auto) Absolute Nucleated RBC 0.000 Nucleated RBC % (auto) 0.0 PT 15.6 H INR 1.4 H APTT Sodium 138 Potassium 3.9 Chloride 105 Carbon Dioxide 26 Anion Gap 11 L BUN 8 L Creatinine 0.71 Estim Creat Clear Calc 56.2 Estimated GFR > 60 POC Glucose Random Glucose Fasting Glucose 162 H Calcium 8.2 L Magnesium Troponin I High Sens B-Natriuretic Peptide Albumin Urine Color Urine Appearance Urine pH Ur Specific [place] Urine Protein Urine Glucose (UA) Urine Ketones Urine Blood Urine Nitrite Ur Leukocyte Esterase Urine RBC Urine WBC Ur Squamous Epith Cells Urine Bacteria Hyaline Casts COVID-19 (MAHAD) [id number] [facility] Blood Type Antibody Screen 04/15/21 04/15/21 04/15/21 07:19 11:32 16:15 WBC RBC Hgb Hct MCV MCH MCHC RDW Plt Count MPV Immature Gran % (Auto) Neut % (Auto) Lymph % (Auto) [place] % (Auto) Eos % (Auto) Baso % (Auto) Lymph # (Auto) [place] # (Auto) Eos # (Auto) Baso # (Auto) Abs Immat Gran (auto) Absolute Neuts (auto) Absolute Nucleated RBC Nucleated RBC % (auto) PT INR APTT Sodium Potassium Chloride Carbon Dioxide Anion Gap BUN Creatinine Estim Creat Clear Calc Estimated GFR POC Glucose 154 H 161 H 187 H Random Glucose Fasting Glucose Calcium Magnesium Troponin I High Sens B-Natriuretic Peptide Albumin Urine Color Urine Appearance Urine pH Ur Specific [place] Urine Protein Urine Glucose (UA) Urine Ketones Urine Blood Urine Nitrite Ur Leukocyte Esterase Urine RBC Urine WBC Ur Squamous Epith Cells Urine Bacteria Hyaline Casts COVID-19 (MAHAD) [employer] Blood Type Antibody Screen 04/15/21 04/16/21 04/16/21 20:01 05:35 05:35 WBC 4.4 L RBC 3.02 L Hgb 9.8 L Hct 31.2 L MCV 103.3 H MCH 32.5 MCHC 31.4 RDW 15.7 Plt Count 209 MPV 9.7 Immature Gran % (Auto) Neut % (Auto) Lymph % (Auto) [place] % (Auto) Eos % (Auto) Baso % (Auto) Lymph # (Auto) [place] # (Auto) Eos # (Auto) Baso # (Auto) Abs Immat Gran (auto) Absolute Neuts (auto) Absolute Nucleated RBC 0.000 Nucleated RBC % (auto) 0.0 PT INR APTT Sodium 138 Potassium 4.0 Chloride 106 Carbon Dioxide 25 Anion Gap 11 L BUN 9 Creatinine 0.68 Estim Creat Clear Calc 58.7 Estimated GFR > 60 POC Glucose 192 H Random Glucose Fasting Glucose 124 H Calcium 7.7 L D Magnesium Troponin I High Sens B-Natriuretic Peptide Albumin Urine Color Urine Appearance Urine pH Ur Specific [place] Urine Protein Urine Glucose (UA) Urine Ketones Urine Blood Urine Nitrite Ur Leukocyte Esterase Urine RBC Urine WBC Ur Squamous Epith Cells Urine Bacteria Hyaline Casts COVID-19 (MAHAD) [id number] [facility] Blood Type Antibody Screen 04/16/21 04/16/21 04/16/21 07:31 09:22 12:02 WBC RBC Hgb Hct MCV MCH MCHC RDW Plt Count MPV Immature Gran % (Auto) Neut % (Auto) Lymph % (Auto) [place] % (Auto) Eos % (Auto) Baso % (Auto) Lymph # (Auto) [place] # (Auto) Eos # (Auto) Baso # (Auto) Abs Immat Gran (auto) Absolute Neuts (auto) Absolute Nucleated RBC Nucleated RBC % (auto) PT 16.6 H INR 1.5 H APTT Sodium Potassium Chloride Carbon Dioxide Anion Gap BUN Creatinine Estim Creat Clear Calc Estimated GFR POC Glucose 124 H 153 H Random Glucose Fasting Glucose Calcium Magnesium Troponin I High Sens B-Natriuretic Peptide Albumin Urine Color Urine Appearance Urine pH Ur Specific [place] Urine Protein Urine Glucose (UA) Urine Ketones Urine Blood Urine Nitrite Ur Leukocyte Esterase Urine RBC Urine WBC Ur Squamous Epith Cells Urine Bacteria Hyaline Casts COVID-19 (MAHAD) COVID-19 Clin Com Blood Type Antibody Screen Airway Mallampati Class: II TM Dist: >3cm Neck ROM: Full Loose/Missing/Broken Teeth: No Heart: IRRR Lungs: CTA Assessment and Plan Assessment Anesthesia Assessment: Anesthesia Plan Discussed and Chart Reviewed Final Anesthetic Review Family History of Problems with Anesthesia: No History of Problems with Anesthesia: No NPO: Yes ASA Class: IV Final Preanesthetic Review: No Changes in Pt Med Stat, Meds/Allgs Chart Reviewed, Consent Obtained/Reviewed, Anes Risks/Benef Reviewed and DNR Form (If Appl.) Patient Risk: High Procedure Risk: Intermediate Anesthetic Plan Anesthetic Plan: GA Disposition: Standard PACU
[2021-04-16] MEDS: ceFAZolin Sodium/Dextrose,Iso 2 GM/50 ML PIGGYBACK IV (13:45)
--- NOTE | 2021-04-16 14:37 | MHC.SHP ---
Pre-Procedural Eval Section A Date of Service: 04/16/21 The patient is an INPATIENT: Yes Changes since office visit: Yes Patient answered all questions; No Cold of Flu in the past 2 weeks, No New Medical Problems and No Changes in Medication The History & Physical has been completed within 30 days and I have reviewed it.: Yes Section B Chief Complaint: Unwitnessed fall Allergies: Allergies Allergy/AdvReac Type Severity Reaction Status Date / Time No Known Allergies Allergy Verified 04/11/21 20:15 Plan I have reviewed the history and physical and performed a pertinent physical examination on my patient. No changes have occurred unless specified.
--- NOTE | 2021-04-16 14:38 | PM.OP ---
Brief Operative Note Date of Service: 04/16/21 Pre-op diagnosis: right femoral neck fracture Post-op diagnosis: same Procedure: right hip hemiarthroplasty Implants: Strker #7, 132 deg +8 bipolar Surgeon: Joesph Sheets MD Anesthesia: GETA and local Was an Awning Frame Maker used for this Procedure?: Yes Awning Frame Maker: Mandy Dockery Estimated blood loss (mL): 150 IV fluids (mL): 500 Pathology: other Condition: stable Disposition: PACU
[2021-04-16] MEDS: ondansetron HCL 4 MG/2 ML VIAL IVPUSH (15:57)
[2021-04-16] MEDS: 0.9 % Sodium Chloride Flush 3 ML SYRINGE IVFLUSH ×2 (16:00→21:56)
[2021-04-16 16:34] LABS: Glucose, Whole Blood 154 mg/dL (60-115)
[2021-04-16 20:47] LABS: Glucose, Whole Blood 159 mg/dL (60-115)
[2021-04-16] MEDS: Magnesium Oxide 400 MG TABLET PO (21:50)
[2021-04-16] MEDS: Atorvastatin Calcium 10 MG TABLET PO (21:50)
[2021-04-17] VITALS (7 sets, daily range): BP systolic 98–124; BP diastolic 47–61; PULSE 80–97; RESP 15–20; TEMP 36–37.4; O2SAT 92–98
[2021-04-17 06:13] LABS: Anion Gap 16 (12-20); Blood Urea Nitrogen 12 mg/dL (9-16); Carbon Dioxide 18 mmol/L (22-29); Chloride 105 mmol/L (96-108); Creatinine Clr Calc Pharmacy 46.3; Estimated Glomerular Filt Rate > 60; Glucose Fasting 189 mg/dL (60-99); Potassium 5.1 mmol/L (3.3-5.1); Sodium 134 mmol/L (135-145)
[2021-04-17] MEDS: Levothyroxine Sodium 112 MCG TABLET PO (06:26)
[2021-04-17 08:00] LABS: Glucose, Whole Blood 193 mg/dL (60-115)
--- NOTE | 2021-04-17 08:06 | PM.PNORT ---
Subjective Subjective Date of Service: 04/17/21 Interval history: POD 1 s/p Rt hip hemiarthroplasty No overnight events Resting in bed, no acute distress Physical Exam Vital Signs: Vital Signs: Last Vital Signs Temp 98 F 04/17/21 07:29 Pulse 89 04/17/21 04:00 Resp 20 04/17/21 07:29 BP 124/61 04/17/21 07:29 Pulse Ox 94 04/17/21 04:00 Body Mass Index 22.8 Const: General: cooperative, healthy appearing and no acute distress Resp: Effort & Inspection: normal respiratory effort and able to speak in complete sentences Cardio: Rate: regular rate Peripheral pulses: Peripheral pulses 2+ throughout GI: Palpation (GI): Soft to palpation Skin: General skin exam: no rashes or lesions noted Extrem: Other: Right hip bandage intact, no erythema, pulses present. Procedures Date of Service Date of Service: 04/17/21 Progress Note: A&P Assessment and plan (1) Femoral neck fracture: Status: Acute Assessment and Plan: Continue pain mgmnt begin lovenox then @48 hrs post op d.c lovenox and resume eliquis begin PT /OT for Right hip hemiarthroplasty posterior precautions Dispo planning-Pending PT eval, pain mgmnt Fall Risk Details Current Medications: Current Medications Acetaminophen (Acetaminophen 325 Mg Tablet) 650 mg PO Q6H PRN PRN Reason: Pain, Mild (Pain Scale 1-3) Last Admin: 04/15/21 17:29 Dose: 650 mg Documented by: Atorvastatin Calcium (Atorvastatin Calcium 10 Mg Tablet) 10 mg PO BEDTIME [facility] Last Admin: 04/16/21 21:50 Dose: 10 mg Documented by: Dextrose (Dextrose 50 % 25 Gm/50 Ml Vial) 25 gm IVPUSH Q15M PRN; Protocol PRN Reason: per Hypoglycemia Standing Ord. Last Admin: 04/12/21 16:25 Dose: 25 gm Documented by: Glucose (Glucose Gel 15 Gm Gel..Gram.) 15 gm PO Q15M PRN; Protocol PRN Reason: per Hypoglycemia Standing Ord. Dextrose/Sodium Chloride (D51/2ns) 1,000 mls @ 50 mls/hr IVCONT .Q20H [facility] Last Admin: 04/16/21 21:58 Dose: 50 mls/hr Documented by: Cefazolin Sodium/Dextrose (Ancef) 2 gm in 50 mls @ 100 mls/hr IV POSTOP [facility] Insulin Human Lispro (Insulin Lispro 100 Unit/Ml 3 Ml Vial) 0 unit SUBCUT QIDACHS [facility]; Protocol Last Admin: 04/16/21 21:55 Dose: Not Given Documented by: Levothyroxine Sodium (Levothyroxine Sodium 112 Mcg Tablet) 112 mcg PO DAILY@0600 [facility] Last Admin: 04/17/21 06:26 Dose: 112 mcg Documented by: Magnesium Oxide (Magnesium Oxide 400 Mg Tablet) 400 mg PO BID [facility] Last Admin: 04/16/21 21:50 Dose: 400 mg Documented by: Melatonin (Melatonin 3 Mg Tablet) 6 mg PO BEDTIME PRN PRN Reason: Insomnia Metoprolol Tartrate (Metoprolol Tartrate 12.5 Mg Halftab) 6.25 mg PO BID [facility] Last Admin: 04/16/21 21:51 Dose: 6.25 mg Documented by: Pharmacy Consult (Consult Rx Perform Med Rec) 1 each MISCELLANE ONCE PRN PRN Reason: Consult order Senna (Sennosides 8.6 Mg Tablet) 17.2 mg PO BEDTIME PRN PRN Reason: Constipation Sodium Chloride (0.9 % Sodium Chloride Flush 3 Ml Syringe) 3 ml IVFLUSH QSHIFT [facility] Last Admin: 04/16/21 21:56 Dose: 3 ml Documented by: Vitamin D (Cholecalciferol (Vitamin D3) 25 Mcg Tablet) 25 mcg PO DAILY [facility] Last Admin: 04/16/21 08:08 Dose: Not Given Documented by: Time Spent With Patient Time: Total time spent is greater than 50% in coordination of care (as documented) at patient's floor/unit and/or counseling patient: Time with patient: less than 15 minutes Quality Stroke Does the patient have a stroke diagnosis?: No VTE Prior VTE?: No VTE Risk Level:: Medical - moderate - high VTE Device Contraindication: Treatment Not Indicated VTE Drug Contraindication: N/A - Med Ordered
[2021-04-17] MEDS: Insulin Lispro 100 UNIT/ML 3 ML VIAL SUBCUT ×4 (08:07→20:23)
[2021-04-17] MEDS: Metoprolol Tartrate 12.5 MG HALFTAB 6.25 MG PO (08:09)
[2021-04-17] MEDS: Cholecalciferol (Vitamin D3) 25 MCG TABLET PO (08:09)
[2021-04-17] MEDS: 0.9 % Sodium Chloride Flush 3 ML SYRINGE IVFLUSH (08:12)
[2021-04-17] MEDS: Magnesium Oxide 400 MG TABLET PO ×2 (08:12→20:23)
--- NOTE | 2021-04-17 09:07 | HO.PM.IMPN ---
Subjective Subjective Date of Service: 04/17/21 Interval History: cc: fall, femur fracture wants to go home, denies pain Cardiovascular Cardiovascular: Reports no additional cardiovascular complaints Respiratory Respiratory: Reports no additional respiratory complaints Physical Exam Vital Signs: Vital Signs: Last Vital Signs Temp 98 F 04/17/21 07:29 Pulse 92 04/17/21 08:37 Resp 20 04/17/21 07:29 BP 124/61 04/17/21 08:37 Pulse Ox 94 04/17/21 04:00 Body Mass Index 22.8 General: alert, able to talk in portuguese, but limited Resp:? diminished, no accessory muscles used CVS: S1,S2,RRR, 3+ edema GI: soft, non tender, non distended Neuro:? moving all extremities Psych: appropriate affect, impaired insight? Objective Data Active Medications Acetaminophen (Acetaminophen 325 Mg Tablet) 650 mg PO Q6H PRN PRN Reason: Pain, Mild (Pain Scale 1-3) Last Admin: 04/15/21 17:29 Dose: 650 mg Documented by: JEFFY Apixaban (Apixaban 5 Mg Tablet) 5 mg PO BID [facility] Atorvastatin Calcium (Atorvastatin Calcium 10 Mg Tablet) 10 mg PO BEDTIME [facility] Last Admin: 04/16/21 21:50 Dose: 10 mg Documented by: SOFIE Dextrose (Dextrose 50 % 25 Gm/50 Ml Vial) 25 gm IVPUSH Q15M PRN; Protocol PRN Reason: per Hypoglycemia Standing Ord. Last Admin: 04/12/21 16:25 Dose: 25 gm Documented by: PATO Glucose (Glucose Gel 15 Gm Gel..Gram.) 15 gm PO Q15M PRN; Protocol PRN Reason: per Hypoglycemia Standing Ord. Dextrose/Sodium Chloride (D51/2ns) 1,000 mls @ 50 mls/hr IVCONT .Q20H [facility] Last Admin: 04/16/21 21:58 Dose: 50 mls/hr Documented by: SOFIE Cefazolin Sodium/Dextrose (Ancef) 2 gm in 50 mls @ 100 mls/hr IV POSTOP [facility] Insulin Human Lispro (Insulin Lispro 100 Unit/Ml 3 Ml Vial) 0 unit SUBCUT QIDACHS [facility]; Protocol Last Admin: 04/17/21 08:07 Dose: 2 unit Documented by: MARGA Levothyroxine Sodium (Levothyroxine Sodium 112 Mcg Tablet) 112 mcg PO DAILY@0600 [facility] Last Admin: 04/17/21 06:26 Dose: 112 mcg Documented by: SOFIE Magnesium Oxide (Magnesium Oxide 400 Mg Tablet) 400 mg PO BID [facility] Last Admin: 04/17/21 08:12 Dose: 400 mg Documented by: MARGA Melatonin (Melatonin 3 Mg Tablet) 6 mg PO BEDTIME PRN PRN Reason: Insomnia Metoprolol Tartrate (Metoprolol Tartrate 12.5 Mg Halftab) 6.25 mg PO BID [facility] Last Admin: 04/17/21 08:09 Dose: 6.25 mg Documented by: MARGA Pharmacy Consult (Consult Rx Perform Med Rec) 1 each MISCELLANE ONCE PRN PRN Reason: Consult order Senna (Sennosides 8.6 Mg Tablet) 17.2 mg PO BEDTIME PRN PRN Reason: Constipation Sodium Chloride (0.9 % Sodium Chloride Flush 3 Ml Syringe) 3 ml IVFLUSH QSHIFT [facility] Last Admin: 04/17/21 08:12 Dose: 3 ml Documented by: MARGA Vitamin D (Cholecalciferol (Vitamin D3) 25 Mcg Tablet) 25 mcg PO DAILY [facility] Last Admin: 04/17/21 08:09 Dose: 25 mcg Documented by: MARGA Labs CBC & Chem 7: 04/16/21 05:35 04/17/21 05:23 Labs: Laboratory Results - last 24 hr 04/16/21 04/16/21 04/16/21 09:22 12:02 16:17 PT 16.6 H INR 1.5 H Anion Gap Estim Creat Clear Calc Estimated GFR POC Glucose 153 H 154 H Fasting Glucose Calcium 04/16/21 04/17/21 04/17/21 20:35 05:23 07:27 PT INR Anion Gap 16 Estim Creat Clear Calc 46.3 Estimated GFR > 60 POC Glucose 159 H 193 H Fasting Glucose 189 H Calcium 8.0 L Assessment and Plan (1) Chronic systolic CHF (congestive heart failure): Status: Acute (2) Femur fracture, right: Status: Acute (3) Atrial fibrillation: Status: Acute (4) Diabetes mellitus, type 2: Status: Acute (5) Hypothyroidism: Status: Acute Assessment and Plan: 85F presented with inability to stand due to right hip fracture from fall right hip fracture POD 1 restarted eliquis, monitor cbc, bmp, pain appears controlled chronic systolic chf, severe pulmonary htn, pericardial effusion metoprolol peripheral edema more 3rd spacing due to low protein, albumin, holding torsemide monitor fluid status closely permanent atrial fibrillation metoprolol eliquis history of CVA with residual dysphagia, dysarthria NDD2 solids, nectar thick liquids eliquis statin DM with hypoglycemia due to poor intake hypoglecemia resolved monitor poc CKD III listed in medical history, creatinine has been normal here anemia dilutaional, inflammatory hgb stable - 9.8 post op today, monitor hypothyroid synthroid DNR/DNI Quality Stroke Does the patient have a stroke diagnosis?: No VTE Prior VTE?: No VTE Risk Level:: Medical - moderate - high VTE Device Contraindication: Treatment Not Indicated VTE Drug Contraindication: N/A - Med Ordered
--- NOTE | 2021-04-17 09:28 | HO.POSTANES ---
Post Anesthesia Evaluation Post Anesthesia Evaluation Vital Signs: Vital Signs Temp Pulse Resp BP Pulse Ox 04/17/21 08:37 92 124/61 04/17/21 08:09 92 124/61 04/17/21 07:29 98 F 20 124/61 04/17/21 04:00 98.2 F 89 17 100/51 L 94 04/16/21 23:59 97.2 F 90 17 144/63 H 93 04/16/21 21:51 96 149/88 H Anesthesia: General Endotracheal-GETA Mental Status: Awake Pain Control: Satisfactory (Unable to assess but seems comfortable. Son reports no signs of pain) Nausea/Vomiting: None (Tolerating po) Hydration: Adequate Anesthesia-Related Issues: No Anes. Related Issues Comments: Staff reports unable to get O2 saturation. Hospitalist aware.Tried with regular pulse oximeter- fingers bluish and cold (patient apparently has a h/o Raynaud's). Pulsations not regular. Toes also cold. BP, HR ok. Advised, continue to warm extremities, try Nellcor sensor and change site to ear, forehead or nose, May have more success.
[2021-04-17] MEDS: Apixaban 5 MG TABLET PO ×2 (09:34→20:23)
--- NOTE | 2021-04-17 11:30 | PM.PNCARD ---
Subjective Subjective Date of Service: 04/17/21 Principal diagnosis: post op ORIF femoral neck, pericardial effusion, chronic afib Interval history: Cardiology follow up for pericardial effusion, chronic afib with anticoagulation. Seen at 0915. Today she is observed sitting in chair, no acute distress. Son in present and reports pt speaks Uzbek and [place]. He spoke her in both languages and she is giving only limited responses. She does respond yes to some questions. Confusion is reported in notes from other providers. Unable to obtain accurate subjective exam. Review of Systems Review of Systems Yes Unobtainable due to mental condition Physical Exam Vital Signs: Last Vital Signs Temp 98 F 04/17/21 07:29 Pulse 92 04/17/21 08:37 Resp 20 04/17/21 07:29 BP 124/61 04/17/21 08:37 Pulse Ox 94 04/17/21 04:00 Body Mass Index 22.8 Const Other: unclear of full orientation General: cooperative, no acute distress, alert and awake Neck Neck: Yes normal visual inspection and Yes no JVD Resp Effort & Inspection: normal respiratory effort and not labored Auscultation: clear to auscultation bilaterally, no rhonchi and no wheezes Cardio Palpation: normal PMI Rate: regular rate Rhythm: abnormal rhythm (irregular) Heart sounds: S1 normal heart sound present and S2 normal heart sound present Peripheral pulses: Peripheral pulses 2+ throughout GI Inspection: Yes normal to inspection Skin General skin exam: no rashes or lesions noted Extrem General: Yes normal to inspection and No edema Results Labs and Meds Result diagrams: 04/16/21 05:35 04/17/21 05:23 Lab results: Laboratory Results - last 24 hr 04/16/21 04/16/21 04/16/21 12:02 16:17 20:35 Sodium Potassium Chloride Carbon Dioxide Anion Gap BUN Creatinine Estim Creat Clear Calc Estimated GFR POC Glucose 153 H 154 H 159 H Fasting Glucose Calcium 04/17/21 04/17/21 05:23 07:27 Sodium 134 L Potassium 5.1 D Chloride 105 Carbon Dioxide 18 L Anion Gap 16 BUN 12 Creatinine 0.86 Estim Creat Clear Calc 46.3 Estimated GFR > 60 POC Glucose 193 H Fasting Glucose 189 H Calcium 8.0 L Progress Note: A&P Assessment and plan (1) Pericardial effusion: Status: Acute Assessment and Plan: Hx of pericardial eff[place] [facility] [place] This admit and echo done 04/12 shows EF 50-55%, apical septum akinetic, mod to severe TR, mod to severe pulm HTN, Large loculated pericardial effusion over the LV. No mention of tamponade features on report. Clinical has been stable. Now post op from ORIF femoral neck yesterday. BP this am 124/61. Tele shows stable afib, isolated PVCs, occ V paced beat, rates 80s. Will order limited echo for tomorrow am to eval pericardial effusion and for tamponade features. Plan of care to be determined post results. (2) Persistent atrial fibrillation: Status: Acute Assessment and Plan: Stable. Rate controlled with low dose Beta albino. On Eliquis for anticoagulation. Will need to be held if pericardiocentesis or window is needed. (3) Presence of cardiac pacemaker: Status: Acute Assessment and Plan: Appears to be functioning normally with intermittent V paced beats seen on tele monitoring. No indication for interrogation at this time. Fall Risk Details Current Medications: Current Medications Acetaminophen (Acetaminophen 325 Mg Tablet) 650 mg PO Q6H PRN PRN Reason: Pain, Mild (Pain Scale 1-3) Last Admin: 04/15/21 17:29 Dose: 650 mg Documented by: Apixaban (Apixaban 5 Mg Tablet) 5 mg PO BID [facility] Last Admin: 04/17/21 09:34 Dose: 5 mg Documented by: Atorvastatin Calcium (Atorvastatin Calcium 10 Mg Tablet) 10 mg PO BEDTIME [facility] Last Admin: 04/16/21 21:50 Dose: 10 mg Documented by: Dextrose (Dextrose 50 % 25 Gm/50 Ml Vial) 25 gm IVPUSH Q15M PRN; Protocol PRN Reason: per Hypoglycemia Standing Ord. Last Admin: 04/12/21 16:25 Dose: 25 gm Documented by: Glucose (Glucose Gel 15 Gm Gel..Gram.) 15 gm PO Q15M PRN; Protocol PRN Reason: per Hypoglycemia Standing Ord. Dextrose/Sodium Chloride (D51/2ns) 1,000 mls @ 50 mls/hr IVCONT .Q20H [facility] Last Admin: 04/16/21 21:58 Dose: 50 mls/hr Documented by: Cefazolin Sodium/Dextrose (Ancef) 2 gm in 50 mls @ 100 mls/hr IV POSTOP [facility] Insulin Human Lispro (Insulin Lispro 100 Unit/Ml 3 Ml Vial) 0 unit SUBCUT QIDACHS [facility]; Protocol Last Admin: 04/17/21 08:07 Dose: 2 unit Documented by: Levothyroxine Sodium (Levothyroxine Sodium 112 Mcg Tablet) 112 mcg PO DAILY@0600 [facility] Last Admin: 04/17/21 06:26 Dose: 112 mcg Documented by: Magnesium Oxide (Magnesium Oxide 400 Mg Tablet) 400 mg PO BID [facility] Last Admin: 04/17/21 08:12 Dose: 400 mg Documented by: Melatonin (Melatonin 3 Mg Tablet) 6 mg PO BEDTIME PRN PRN Reason: Insomnia Metoprolol Tartrate (Metoprolol Tartrate 12.5 Mg Halftab) 6.25 mg PO BID [facility] Last Admin: 04/17/21 08:09 Dose: 6.25 mg Documented by: Pharmacy Consult (Consult Rx Perform Med Rec) 1 each MISCELLANE ONCE PRN PRN Reason: Consult order Senna (Sennosides 8.6 Mg Tablet) 17.2 mg PO BEDTIME PRN PRN Reason: Constipation Sodium Chloride (0.9 % Sodium Chloride Flush 3 Ml Syringe) 3 ml IVFLUSH QSHIFT [facility] Last Admin: 04/17/21 08:12 Dose: 3 ml Documented by: Vitamin D (Cholecalciferol (Vitamin D3) 25 Mcg Tablet) 25 mcg PO DAILY [facility] Last Admin: 04/17/21 08:09 Dose: 25 mcg Documented by: Time Spent With Patient Time: Total time spent is greater than 50% in coordination of care (as documented) at patient's floor/unit and/or counseling patient: Time with patient: 15 - 24 minutes Progress Note: Quality Stroke Does the patient have a stroke diagnosis?: No Procedures Date of Service Date of Service: 04/17/21
[2021-04-17] MEDS: Acetaminophen 325 MG TABLET 650 MG PO ×2 (11:39→14:26)
[2021-04-17 11:41] LABS: Glucose, Whole Blood 199 mg/dL (60-115)
--- NOTE | 2021-04-17 13:09 | MHC.CLN ---
F/U PATIENT HAD HIP SURGERY 04/16. DIET=DIABETIC 1800 KCAL, NDD2, NECTAR THICK LIQUIDS. GLUCERNA BID ADDS 474 KCAL, 20 G PROTEIN. RECORDED INTAKE SHOWS PO USUALLY 0-25%. SUPPLEMENT IN PLACE AND CONTINUE. FOLLOW PO INTAKE.
--- NOTE | 2021-04-17 13:40 | MHC.CM.PN ---
FLORINA CYR UPDATED WITH PATIENT PROGRESS. PLAN IS FOR P.T. AND O.T. AND RETURN TO FACILITY.
--- NOTE | 2021-04-17 14:22 | PC.NURSE ---
Pt given tylenol earlier in this shift. Vomited pills up. Per jolie Li to give pt additional dose of tylenol
[2021-04-17] MEDS: Dextrose 5 % and 0.45 % NaCl 1,000 ML 75 ML IVCONT (15:08)
[2021-04-17 16:26] LABS: Glucose, Whole Blood 269 mg/dL (60-115)
[2021-04-17 20:07] LABS: Glucose, Whole Blood 203 mg/dL (60-115)
[2021-04-17] MEDS: Atorvastatin Calcium 10 MG TABLET PO (20:23)
[2021-04-17] MEDS: Nystatin Cream 15 GM TUBE 1 APPL TOPICAL (20:31)
[2021-04-18] VITALS (9 sets, daily range): BP systolic 101–115; BP diastolic 54–72; PULSE 79–99; RESP 16–19; TEMP 36.2–37.6; O2SAT 95–100
[2021-04-18] MEDS: Dextrose 5 % and 0.45 % NaCl 1,000 ML 75 ML IVCONT (02:52)
[2021-04-18] MEDS: Levothyroxine Sodium 112 MCG TABLET PO (04:57)
--- NOTE | 2021-04-18 07:00 | CA_ITS ---
Transthoracic Echocardiogram Patient (Last, First, Middle): Zahida Caro, Gender: Female Date of : 1935 Age: 85 Procedure Date: 04/18/2021 Procedure Type: Transthoracic Echocardiogram Location: S3E Height: 167.64 cm Weight: 63.96 kg BSA: 1.72 m2 Heart Rate: bpm BP: 112 / 57 mmHg Rn International: DSG Referring MD: Mini Hopkins [employer]IDATION ENGINEER-C Symptoms: large pericardial effusion, assess for tamponade features Study Quality: Fair Conclusions: - There is a large left sided pleural effusion. There is a moderate to large size effusion loculated laterally. No definitive signs of cardiac tamponade were noticed. Findings Left Ventricle Normal left ventricular size and systolic function. The visually estimated ejection fraction is between 55-60%. There is evidence of regional wall motion abnormalities. Wall Motion Rest Echo Findings The apex and apical septum segments are dyskinetic. Right Ventricle Normal right ventricular cavity size. There is mildly decreased right ventricular systolic function. There is a pacemaker wire seen in the right ventricle. Tricuspid Valve Normal tricuspid valve structure. There is mild tricuspid valve regurgitation. Venous The inferior vena cava is normal in size and collapses greater than 50% with inspiration. Pericardium/Pleural There is a large left sided pleural effusion. There is a moderate to large size effusion loculated laterally. No definitive signs of cardiac tamponade were noticed. Prior Study Comparison No significant change compared to prior study dated: 04/12/2021. Measurements Tricuspid Valve TR Pk Jose M: 3.01 TR Pk Grad: 36.00 RA Press: 3.00 RVSP: 39.00 Updated in Other Vendor System with Status of Final Ab Hassan MD electronically signed on 04/18/2021 1:26:49 PM with status of Final
[2021-04-18 07:26] LABS: MANUAL DIFF FLAG NO
[2021-04-18 07:38] LABS: Basophils Percent Auto 0.3 % (0-2); Eosinophils Absolute Auto 0.1 X10*3/uL (0.0-0.4); Eosinophils Percent Auto 1.3 % (0-4); Hematocrit 30.5 % (37-47); Hemoglobin 9.8 g/dl (12.0-16.0); Imm Gran Abs Auto 0.03 X10*3/uL (0.00-0.03); Imm Gran Pct Auto 0.4 % (0.0-0.4); Lymphocytes Absolute Auto 0.7 X10*3/uL (1.2-4.9); Lymphocytes Percent Auto 9.4 % (20-40); Mean Corpuscular HGB Conc 32.1 g/dl (31.0-35.0); Mean Corpuscular Hemoglobin 33.1 pg (27.0-33.0); Mean Platelet Volume 10.2 fL (9.4-12.3); Monocytes Absolute Auto 0.7 X10*3/uL (0.1-1.2); Monocytes Percent Auto 9.4 % (2-11); Neutrophils Absolute Auto 5.6 X10*3/uL (2.0-8.3); Neutrophils Percent Auto 79.2 % (45-73); Platelet Count 219 X10*3/uL (160-400); Red Blood Count 2.96 X10*6/uL (4.20-5.50); Red Cell Distribution Width 15.4 % (11.0-16.0)
--- NOTE | 2021-04-18 08:01 | PM.PNORT ---
Subjective Subjective Date of Service: 04/18/21 Principal diagnosis: post op ORIF femoral neck, pericardial effusion, chronic afib Interval history: POD 2 s/p Rt hip hemiarthroplasty. No overnight events. Resting in bed, no acute distress. Physical Exam Vital Signs: Vital Signs: Last Vital Signs Temp 97.7 F 04/18/21 04:00 Pulse 90 04/18/21 07:51 Resp 17 04/18/21 04:00 BP 112/57 L 04/18/21 07:51 Pulse Ox 100 04/18/21 07:51 Body Mass Index 22.8 Const: General: cooperative, healthy appearing and no acute distress Resp: Effort & Inspection: normal respiratory effort and able to speak in complete sentences Cardio: Rate: regular rate Peripheral pulses: Peripheral pulses 2+ throughout GI: Palpation (GI): Soft to palpation Skin: Lesions: no lesions Rashes: no rashes Extrem: Other: Right hip bandage intact, no erythema, pulses present. Procedures Date of Service Date of Service: 04/18/21 Progress Note: A&P Assessment and plan (1) Femoral neck fracture: Status: Acute Assessment and Plan: Continue pain mgmnt Begin lovenox then @48 hrs post op d.c lovenox and resume eliquis Continue PT /OT for Right hip hemiarthroplasty posterior precautions Dispo planning-PT, pain mgmnt Fall Risk Details Current Medications: Current Medications Acetaminophen (Acetaminophen 325 Mg Tablet) 650 mg PO Q6H PRN PRN Reason: Pain, Mild (Pain Scale 1-3) Last Admin: 04/17/21 14:26 Dose: 650 mg Documented by: Apixaban (Apixaban 5 Mg Tablet) 5 mg PO BID [facility] Last Admin: 04/17/21 20:23 Dose: 5 mg Documented by: Atorvastatin Calcium (Atorvastatin Calcium 10 Mg Tablet) 10 mg PO BEDTIME [facility] Last Admin: 04/17/21 20:23 Dose: 10 mg Documented by: Dextrose (Dextrose 50 % 25 Gm/50 Ml Vial) 25 gm IVPUSH Q15M PRN; Protocol PRN Reason: per Hypoglycemia Standing Ord. Last Admin: 04/12/21 16:25 Dose: 25 gm Documented by: Glucose (Glucose Gel 15 Gm Gel..Gram.) 15 gm PO Q15M PRN; Protocol PRN Reason: per Hypoglycemia Standing Ord. Cefazolin Sodium/Dextrose (Ancef) 2 gm in 50 mls @ 100 mls/hr IV POSTOP [facility] Insulin Human Lispro (Insulin Lispro 100 Unit/Ml 3 Ml Vial) 0 unit SUBCUT QIDACHS [facility]; Protocol Last Admin: 04/17/21 20:23 Dose: 4 unit Documented by: Levothyroxine Sodium (Levothyroxine Sodium 112 Mcg Tablet) 112 mcg PO DAILY@0600 [facility] Last Admin: 04/18/21 04:57 Dose: 112 mcg Documented by: Magnesium Oxide (Magnesium Oxide 400 Mg Tablet) 400 mg PO BID [facility] Last Admin: 04/17/21 20:23 Dose: 400 mg Documented by: Melatonin (Melatonin 3 Mg Tablet) 6 mg PO BEDTIME PRN PRN Reason: Insomnia Metoprolol Tartrate (Metoprolol Tartrate 12.5 Mg Halftab) 6.25 mg PO BID [facility] Last Admin: 04/17/21 20:23 Dose: Not Given Documented by: Nystatin (Nystatin Cream 15 Gm Tube) 1 appl TOPICAL BID [facility]; Protocol Last Admin: 04/17/21 20:31 Dose: 1 appl Documented by: Pharmacy Consult (Consult Rx Perform Med Rec) 1 each MISCELLANE ONCE PRN PRN Reason: Consult order Senna (Sennosides 8.6 Mg Tablet) 17.2 mg PO BEDTIME PRN PRN Reason: Constipation Sodium Chloride (0.9 % Sodium Chloride Flush 3 Ml Syringe) 3 ml IVFLUSH QSHIFT [facility] Last Admin: 04/17/21 20:25 Dose: Not Given Documented by: Vitamin D (Cholecalciferol (Vitamin D3) 25 Mcg Tablet) 25 mcg PO DAILY [facility] Last Admin: 04/17/21 08:09 Dose: 25 mcg Documented by: Time Spent With Patient Time: Total time spent is greater than 50% in coordination of care (as documented) at patient's floor/unit and/or counseling patient: Time with patient: less than 15 minutes Quality Stroke Does the patient have a stroke diagnosis?: No VTE Prior VTE?: No VTE Risk Level:: Medical - moderate - high VTE Device Contraindication: Treatment Not Indicated VTE Drug Contraindication: N/A - Med Ordered
[2021-04-18 08:14] LABS: Glucose, Whole Blood 145 mg/dL (60-115)
[2021-04-18 08:44] LABS: Anion Gap 11 (12-20); Blood Urea Nitrogen 15 mg/dL (9-16); Carbon Dioxide 26 mmol/L (22-29); Chloride 102 mmol/L (96-108); Creatinine Clr Calc Pharmacy 45.3; Estimated Glomerular Filt Rate > 60; Glucose Fasting 156 mg/dL (60-99); Potassium 4.2 mmol/L (3.3-5.1); Sodium 135 mmol/L (135-145)
--- NOTE | 2021-04-18 09:09 | PM.PNCARD ---
Subjective Subjective Date of Service: 04/18/21 Principal diagnosis: post op ORIF femoral neck, pericardial effusion, chronic afib Interval history: Cardiology follow up for pericardial effusion, chronic afib. Seen at 0850. Today she is observed resting in bed, no acute distress. Wearing O2 3 L with nasal cannula. Unclear full orientations. Follows some commands. No indication of acute pain. Has noted edema in arms and legs, increased from yesterday. JVD present on exam. Has IV fluids infusing. Review of Systems Review of Systems as above Yes Unobtainable due to mental condition Physical Exam Vital Signs: Last Vital Signs Temp 97.1 F 04/18/21 08:00 Pulse 92 04/18/21 08:00 Resp 18 04/18/21 08:00 BP 115/54 L 04/18/21 08:00 Pulse Ox 57 L 04/18/21 08:00 Body Mass Index 22.8 Const General: cooperative, no acute distress, alert and awake Orientation/consciousness: patient oriented x3 Neck Neck: Yes normal visual inspection and Yes JVD (to near jaw) Resp Effort & Inspection: normal respiratory effort and not labored Auscultation: clear to auscultation bilaterally, rales (scattered fine), no rhonchi and no wheezes Cardio Jugular venous distension: JVD present Palpation: normal PMI Rate: regular rate Rhythm: abnormal rhythm (irregularly irregular) Heart sounds: S1 normal heart sound present and S2 normal heart sound present Peripheral pulses: Peripheral pulses 2+ throughout GI Inspection: Yes normal to inspection Neuro General: patient oriented x3 Extrem Other: dependant edema in arms and legs, pitting. Results Labs and Meds Result diagrams: 04/18/21 07:16 04/18/21 08:09 Lab results: Laboratory Results - last 24 hr 04/17/21 04/17/21 04/17/21 11:27 16:22 20:01 WBC RBC Hgb Hct MCV MCH MCHC RDW Plt Count MPV Immature Gran % (Auto) Neut % (Auto) Lymph % (Auto) Dewitt % (Auto) Eos % (Auto) Baso % (Auto) Lymph # (Auto) Dewitt # (Auto) Eos # (Auto) Baso # (Auto) Abs Immat Gran (auto) Absolute Neuts (auto) Absolute Nucleated RBC Nucleated RBC % (auto) Sodium Potassium Chloride Carbon Dioxide Anion Gap BUN Creatinine Estim Creat Clear Calc Estimated GFR POC Glucose 199 H 269 H 203 H Fasting Glucose Calcium 04/18/21 04/18/21 04/18/21 07:16 07:16 08:09 WBC Cancelled 7.0 RBC Cancelled 2.96 L Hgb Cancelled 9.8 L Hct Cancelled 30.5 L MCV Cancelled 103.0 H MCH Cancelled 33.1 H MCHC Cancelled 32.1 RDW Cancelled 15.4 Plt Count Cancelled 219 MPV Cancelled 10.2 Immature Gran % (Auto) 0.4 Neut % (Auto) 79.2 H Lymph % (Auto) 9.4 L Dewitt % (Auto) 9.4 Eos % (Auto) 1.3 Baso % (Auto) 0.3 Lymph # (Auto) 0.7 L Dewitt # (Auto) 0.7 Eos # (Auto) 0.1 Baso # (Auto) 0.0 Abs Immat Gran (auto) 0.03 Absolute Neuts (auto) 5.6 Absolute Nucleated RBC Cancelled 0.000 Nucleated RBC % (auto) Cancelled 0.0 Sodium 135 Potassium 4.2 Chloride 102 Carbon Dioxide 26 Anion Gap 11 L BUN 15 Creatinine 0.88 Estim Creat Clear Calc 45.3 Estimated GFR > 60 POC Glucose Fasting Glucose 156 H Calcium 8.0 L 04/18/21 08:11 WBC RBC Hgb Hct MCV MCH MCHC RDW Plt Count MPV Immature Gran % (Auto) Neut % (Auto) Lymph % (Auto) Dewitt % (Auto) Eos % (Auto) Baso % (Auto) Lymph # (Auto) Dewitt # (Auto) Eos # (Auto) Baso # (Auto) Abs Immat Gran (auto) Absolute Neuts (auto) Absolute Nucleated RBC Nucleated RBC % (auto) Sodium Potassium Chloride Carbon Dioxide Anion Gap BUN Creatinine Estim Creat Clear Calc Estimated GFR POC Glucose 145 H Fasting Glucose Calcium Progress Note: A&P Assessment and plan (1) Pericardial effusion: Status: Acute Assessment and Plan: Hx of pericardial effusion with pericardiocentesis [place] [facility] [place]. This admit and echo done 04/12 shows EF 50-55%, apical septum akinetic, mod to severe TR, mod to severe pulm HTN, Large loculated pericardial effusion over the LV. No mention of tamponade features on report. Clinical has been stable. Now post op from ORIF femoral neck 04/16. BP this am 115/54, overall seems lower than yesterday. On exam she does have signs of fluid overload. Tele shows stable afib, isolated PVCs, occ V paced beat, rates 80s. Limited echo planned for today eval pericardial effusion and for tamponade features. Further plan of care to be determined post results. (2) Acute on chronic systolic HF (heart failure): Status: Acute Assessment and Plan: Hx of chronic systolic CHF with prior EF 40-45%. EF this admit was 50-55%. She has been recieving IV fluids in postoperative period. On exam she has signs of fluid overload with few fine scattered rales, prominent JVD and edema noted in upper and lower extremeties. Her home Torsemide has been on hold since admit. Has not been taking much in PO. Fluid balance + 7700cc since admit. Recommend stop of IV fluids - hospitalist notified. Will add BNP on to am labs. Will check portable CXR to compare to admit. Her home Torsemide has been on hold since admit. Has not been taking much in PO. Fluid balance + 7700cc since admit. (3) Persistent atrial fibrillation: Status: Acute Assessment and Plan: Stable. Rate controlled with low dose Beta albino. On Eliquis for anticoagulation. Will need to be held if pericardiocentesis or window is needed. (4) Presence of cardiac pacemaker: Status: Acute Assessment and Plan: Appears to be functioning normally with intermittent V paced beats seen on tele monitoring. No indication for interrogation at this time. Fall Risk Details Current Medications: Current Medications Acetaminophen (Acetaminophen 325 Mg Tablet) 650 mg PO Q6H PRN PRN Reason: Pain, Mild (Pain Scale 1-3) Last Admin: 04/17/21 14:26 Dose: 650 mg Documented by: Apixaban (Apixaban 5 Mg Tablet) 5 mg PO BID COUNTS INCLUDE 234 BEDS AT THE [facility] Last Admin: 04/17/21 20:23 Dose: 5 mg Documented by: Atorvastatin Calcium (Atorvastatin Calcium 10 Mg Tablet) 10 mg PO BEDTIME COUNTS INCLUDE 234 BEDS AT THE [facility] Last Admin: 04/17/21 20:23 Dose: 10 mg Documented by: Dextrose (Dextrose 50 % 25 Gm/50 Ml Vial) 25 gm IVPUSH Q15M PRN; Protocol PRN Reason: per Hypoglycemia Standing Ord. Last Admin: 04/12/21 16:25 Dose: 25 gm Documented by: Glucose (Glucose Gel 15 Gm Gel..Gram.) 15 gm PO Q15M PRN; Protocol PRN Reason: per Hypoglycemia Standing Ord. Cefazolin Sodium/Dextrose (Ancef) 2 gm in 50 mls @ 100 mls/hr IV POSTOP COUNTS INCLUDE 234 BEDS AT THE [facility] Insulin Human Lispro (Insulin Lispro 100 Unit/Ml 3 Ml Vial) 0 unit SUBCUT QIDACHS COUNTS INCLUDE 234 BEDS AT THE [facility]; Protocol Last Admin: 04/18/21 08:50 Dose: Not Given Documented by: Levothyroxine Sodium (Levothyroxine Sodium 112 Mcg Tablet) 112 mcg PO DAILY@0600 COUNTS INCLUDE 234 BEDS AT THE [facility] Last Admin: 04/18/21 04:57 Dose: 112 mcg Documented by: Magnesium Oxide (Magnesium Oxide 400 Mg Tablet) 400 mg PO BID COUNTS INCLUDE 234 BEDS AT THE [facility] Last Admin: 04/17/21 20:23 Dose: 400 mg Documented by: Melatonin (Melatonin 3 Mg Tablet) 6 mg PO BEDTIME PRN PRN Reason: Insomnia Metoprolol Tartrate (Metoprolol Tartrate 12.5 Mg Halftab) 6.25 mg PO BID COUNTS INCLUDE 234 BEDS AT THE [facility] Last Admin: 04/17/21 20:23 Dose: Not Given Documented by: Nystatin (Nystatin Cream 15 Gm Tube) 1 appl TOPICAL BID COUNTS INCLUDE 234 BEDS AT THE [facility]; Protocol Last Admin: 04/17/21 20:31 Dose: 1 appl Documented by: Pharmacy Consult (Consult Rx Perform Med Rec) 1 each MISCELLANE ONCE PRN PRN Reason: Consult order Senna (Sennosides 8.6 Mg Tablet) 17.2 mg PO BEDTIME PRN PRN Reason: Constipation Sodium Chloride (0.9 % Sodium Chloride Flush 3 Ml Syringe) 3 ml IVFLUSH QSHIFT COUNTS INCLUDE 234 BEDS AT THE [facility] Last Admin: 04/17/21 20:25 Dose: Not Given Documented by: Vitamin D (Cholecalciferol (Vitamin D3) 25 Mcg Tablet) 25 mcg PO DAILY COUNTS INCLUDE 234 BEDS AT THE [facility] Last Admin: 04/17/21 08:09 Dose: 25 mcg Documented by: Time Spent With Patient Time: Total time spent is greater than 50% in coordination of care (as documented) at patient's floor/unit and/or counseling patient: Time with patient: 15 - 24 minutes Progress Note: Quality Stroke Does the patient have a stroke diagnosis?: No Procedures Date of Service Date of Service: 04/18/21
--- NOTE | 2021-04-18 09:29 | P.PNIM_ITS ---
Subjective Subjective Date of Service: 04/18/21 Interval History: cc: fall, femur fracture Cardiovascular Cardiovascular: Reports no additional cardiovascular complaints Respiratory Respiratory: Reports no additional respiratory complaints Physical Exam Vital Signs: Vital Signs: Last Vital Signs Temp 97.1 F 04/18/21 08:00 Pulse 92 04/18/21 08:00 Resp 18 04/18/21 08:00 BP 115/54 L 04/18/21 08:00 Pulse Ox 57 L 04/18/21 08:00 Body Mass Index 22.8 General: lethargic, able to talk in lithuanian, but limited, answering simple questions, overall ill appearing Resp:? diminished, no accessory muscles used CVS: S1,S2,RRR, 3+ edema, +jvd GI: soft, non tender, non distended Neuro:? moving all extremities Psych: appropriate affect, impaired insight? Objective Data Active Medications Acetaminophen (Acetaminophen 325 Mg Tablet) 650 mg PO Q6H PRN PRN Reason: Pain, Mild (Pain Scale 1-3) Last Admin: 04/17/21 14:26 Dose: 650 mg Documented by: MARGA Apixaban (Apixaban 5 Mg Tablet) 5 mg PO BID [facility] Last Admin: 04/17/21 20:23 Dose: 5 mg Documented by: KSENIA Atorvastatin Calcium (Atorvastatin Calcium 10 Mg Tablet) 10 mg PO BEDTIME [facility] Last Admin: 04/17/21 20:23 Dose: 10 mg Documented by: KSENIA Dextrose (Dextrose 50 % 25 Gm/50 Ml Vial) 25 gm IVPUSH Q15M PRN; Protocol PRN Reason: per Hypoglycemia Standing Ord. Last Admin: 04/12/21 16:25 Dose: 25 gm Documented by: PATO Glucose (Glucose Gel 15 Gm Gel..Gram.) 15 gm PO Q15M PRN; Protocol PRN Reason: per Hypoglycemia Standing Ord. Cefazolin Sodium/Dextrose (Ancef) 2 gm in 50 mls @ 100 mls/hr IV POSTOP [facility] Insulin Human Lispro (Insulin Lispro 100 Unit/Ml 3 Ml Vial) 0 unit SUBCUT QIDACHS [facility]; Protocol Last Admin: 04/18/21 08:50 Dose: Not Given Documented by: YOLY Non-Admin Reason: No Insulin Coverage Levothyroxine Sodium (Levothyroxine Sodium 112 Mcg Tablet) 112 mcg PO DA ANTWON@0600 [facility] Last Admin: 04/18/21 04:57 Dose: 112 mcg Documented by: KSENIA Magnesium Oxide (Magnesium Oxide 400 Mg Tablet) 400 mg PO BID [facility] Last Admin: 04/17/21 20:23 Dose: 400 mg Documented by: KSENIA Melatonin (Melatonin 3 Mg Tablet) 6 mg PO BEDTIME PRN PRN Reason: Insomnia Metoprolol Tartrate (Metoprolol Tartrate 12.5 Mg Halftab) 6.25 mg PO BID [facility] Last Admin: 04/17/21 20:23 Dose: Not Given Documented by: KSENIA Non-Admin Reason: low bp Nystatin (Nystatin Cream 15 Gm Tube) 1 appl TOPICAL BID [facility]; Protocol Last Admin: 04/17/21 20:31 Dose: 1 appl Documented by: KSENIA Pharmacy Consult (Consult Rx Perform Med Rec) 1 each MISCELLANE ONCE PRN PRN Reason: Consult order Senna (Sennosides 8.6 Mg Tablet) 17.2 mg PO BEDTIME PRN PRN Reason: Constipation Sodium Chloride (0.9 % Sodium Chloride Flush 3 Ml Syringe) 3 ml IVFLUSH QSHIFT [facility] Last Admin: 04/17/21 20:25 Dose: Not Given Documented by: KSENIA Non-Admin Reason: IV Running Vitamin D (Cholecalciferol (Vitamin D3) 25 Mcg Tablet) 25 mcg PO DAILY [facility] Last Admin: 04/17/21 08:09 Dose: 25 mcg Documented by: MARGA Labs CBC & Chem 7: 04/18/21 07:16 04/18/21 08:09 Labs: Laboratory Results - last 24 hr 04/17/21 04/17/21 04/17/21 11:27 16:22 20:01 MCV MCH MCHC RDW Plt Count MPV Immature Gran % (Auto) Neut % (Auto) Lymph % (Auto) Lawrence % (Auto) Eos % (Auto) Baso % (Auto) Lymph # (Auto) Lawrence # (Auto) Eos # (Auto) Baso # (Auto) Abs Immat Gran (auto) Absolute Neuts (auto) Absolute Nucleated RBC Nucleated RBC % (auto) Anion Gap Estim Creat Clear Calc Estimated GFR POC Glucose 199 H 269 H 203 H Fasting Glucose Calcium 04/18/21 04/18/21 04/18/21 07:16 07:16 08:09 MCV Cancelled 103.0 H MCH Cancelled 33.1 H MCHC Cancelled 32.1 RDW Cancelled 15.4 Plt Count Cancelled 219 MPV Cancelled 10.2 Immature Gran % (Auto) 0.4 Neut % (Auto) 79.2 H Lymph % (Auto) 9.4 L Lawrence % (Auto) 9.4 Eos % (Auto) 1.3 Baso % (Auto) 0.3 Lymph # (Auto) 0.7 L Lawrence # (Auto) 0.7 Eos # (Auto) 0.1 Baso # (Auto) 0.0 Abs Immat Gran (auto) 0.03 Absolute Neuts (auto) 5.6 Absolute Nucleated RBC Cancelled 0.000 Nucleated RBC % (auto) Cancelled 0.0 Anion Gap 11 L Estim Creat Clear Calc 45.3 Estimated GFR > 60 POC Glucose Fasting Glucose 156 H Calcium 8.0 L 04/18/21 08:11 MCV MCH MCHC RDW Plt Count MPV Immature Gran % (Auto) Neut % (Auto) Lymph % (Auto) Lawrence % (Auto) Eos % (Auto) Baso % (Auto) Lymph # (Auto) Lawrence # (Auto) Eos # (Auto) Baso # (Auto) Abs Immat Gran (auto) Absolute Neuts (auto) Absolute Nucleated RBC Nucleated RBC % (auto) Anion Gap Estim Creat Clear Calc Estimated GFR POC Glucose 145 H Fasting Glucose Calcium Microbiology Microbiology Results: Microbiology 04/12/21 22:23 Blood Culture - Final Blood - Venous No growth after 5 days. 04/12/21 22:27 Blood Culture - Final Blood - Venous No growth after 5 days. Assessment and Plan (1) Chronic systolic CHF (congestive heart failure): Status: Acute (2) Femur fracture, right: Status: Acute (3) Atrial fibrillation: Status: Acute (4) Diabetes mellitus, type 2: Status: Acute (5) Hypothyroidism: Status: Acute Assessment and Plan: 85F presented with inability to stand due to right hip fracture from fall right hip fracture POD 2 restarted eliquis, monitor cbc, bmp, pain appears controlled PT chronic systolic chf, severe pulmonary htn, pericardial effusion metoprolol now with worsening JVD, will stop maintance fluids, check bnp, limitted echo monitor fluid status closely permanent atrial fibrillation metoprolol eliquis history of CVA with residual dysphagia, dysarthria NDD2 solids, nectar thick liquids eliquis statin DM with hypoglycemia due to poor intake hypoglecemia resolved monitor poc CKD III listed in medical history, creatinine has been normal here anemia dilutaional, inflammatory hgb stable - 9.8 post op today, monitor hypothyroid synthroid DNR/DNI Quality Stroke Does the patient have a stroke diagnosis?: No VTE Prior VTE?: No VTE Risk Level:: Medical - moderate - high VTE Device Contraindication: Treatment Not Indicated VTE Drug Contraindication: N/A - Med Ordered
[2021-04-18 09:48] LABS: B Type Natriuretic Peptide 499 pg/mL (<100)
[2021-04-18] MEDS: Acetaminophen 325 MG TABLET 650 MG PO ×2 (09:51→21:55)
[2021-04-18] MEDS: Metoprolol Tartrate 12.5 MG HALFTAB 6.25 MG PO ×2 (09:51→21:53)
[2021-04-18] MEDS: Cholecalciferol (Vitamin D3) 25 MCG TABLET PO (09:52)
[2021-04-18] MEDS: Magnesium Oxide 400 MG TABLET PO ×2 (09:52→21:54)
[2021-04-18] MEDS: Apixaban 5 MG TABLET PO ×2 (09:52→21:48)
[2021-04-18] MEDS: Nystatin Cream 15 GM TUBE 1 APPL TOPICAL ×2 (09:53→21:50)
[2021-04-18 11:46] LABS: Glucose, Whole Blood 187 mg/dL (60-115)
--- NOTE | 2021-04-18 12:19 | P.CDIC_ITS ---
CDI Concurrent Query Documentation Clarification: PHYSICIAN'S DOCUMENTATION REQUEST Date of Query: 04/18/21 1220 Patient Name: Zahida Caro Admit Date: 04/11/21 Dear Doctor, A review of the medical record indicates additional documentation may be needed. Please review below and update the documentation accordingly. Risk Factors/Clinical Indicators/Treatments Admit sp fall with right transcervical femur neck fracture. H/H on admit: 10.7/33.3 H/H on 04/13/21: 8.3/25.9 OR on 04/16/21 for R hip hemiarthroplasty H/H on 04/18/21: 9.8/30.5 Based on the above, could you clarify in the Progress Notes the appropriate diagnosis, if significant, that supports the above abnormalities and additional evaluation, monitoring, and/or treatment rendered: * Acute Blood Loss Anemia * No Acute Blood Loss Anemia * Other (please specify) * Unable to determine Use of terms such as suspected, likely, concern for, or probable (associated with a specific diagnosis that is being evaluated, monitored, or treated as if it exists) are acceptable and can be coded in the inpatient setting, when documented at the time of discharge. Thank you, Marleny Garcia RN Extension: [phone] Please use your independent medical judgment in providing your response. THIS QUERY IS PART OF THE PERMANENT MEDICAL RECORD
[2021-04-18] MEDS: Insulin Lispro 100 UNIT/ML 3 ML VIAL SUBCUT ×3 (12:29→21:49)
[2021-04-18 17:00] LABS: Glucose, Whole Blood 154 mg/dL (60-115)
[2021-04-18] MEDS: 0.9 % Sodium Chloride Flush 3 ML SYRINGE IVFLUSH (17:25)
--- NOTE | 2021-04-18 18:31 | PC.NURSE ---
P A-fib/A flutter with occ. V paced beats on a monitor I Dr. Ceja notified of the above E patient has no complaints
[2021-04-18 21:01] LABS: Glucose, Whole Blood 185 mg/dL (60-115)
[2021-04-18] MEDS: Atorvastatin Calcium 10 MG TABLET PO (21:48)
--- NOTE | 2021-04-18 23:15 | PC.NURSE ---
P redness bilateral buttocks ,fungal rash jenny area I patient cleansed ,repositioned,Nystatin cream applied,protective cream to buttocks e will monitor
[2021-04-19] VITALS (10 sets, daily range): BP systolic 98–116; BP diastolic 46–60; PULSE 55–84; RESP 17–18; TEMP 36–36.8; O2SAT 72–100
[2021-04-19] MEDS: 0.9 % Sodium Chloride Flush 3 ML SYRINGE IVFLUSH ×3 (00:18→15:32)
[2021-04-19 05:46] LABS: MANUAL DIFF FLAG NO
[2021-04-19 05:51] LABS: Basophils Percent Auto 0.2 % (0-2); Eosinophils Absolute Auto 0.1 X10*3/uL (0.0-0.4); Eosinophils Percent Auto 2.3 % (0-4); Hematocrit 24.8 % (37-47); Hemoglobin 7.8 g/dl (12.0-16.0); Imm Gran Abs Auto 0.01 X10*3/uL (0.00-0.03); Imm Gran Pct Auto 0.2 % (0.0-0.4); Lymphocytes Absolute Auto 0.8 X10*3/uL (1.2-4.9); Lymphocytes Percent Auto 16.2 % (20-40); Mean Corpuscular HGB Conc 31.5 g/dl (31.0-35.0); Mean Corpuscular Hemoglobin 32.5 pg (27.0-33.0); Mean Corpuscular Volume 103.3 fL (80-98); Mean Platelet Volume 10.1 fL (9.4-12.3); Monocytes Absolute Auto 0.5 X10*3/uL (0.1-1.2); Monocytes Percent Auto 9.5 % (2-11); Neutrophils Absolute Auto 3.4 X10*3/uL (2.0-8.3); Neutrophils Percent Auto 71.6 % (45-73); Platelet Count 226 X10*3/uL (160-400); Red Cell Distribution Width 15.3 % (11.0-16.0); White Blood Count 4.8 X10*3/uL (4.8-10.8)
[2021-04-19] MEDS: Levothyroxine Sodium 112 MCG TABLET PO (05:52)
[2021-04-19 06:17] LABS: Anion Gap 8 (12-20); Blood Urea Nitrogen 17 mg/dL (9-16); Calcium 7.8 mg/dL (8.4-10.2); Carbon Dioxide 27 mmol/L (22-29); Chloride 102 mmol/L (96-108); Creatinine Clr Calc Pharmacy 46.9; Estimated Glomerular Filt Rate > 60; Glucose Random 209 mg/dL (60-115); Potassium 4.4 mmol/L (3.3-5.1); Sodium 133 mmol/L (135-145)
[2021-04-19 07:12] LABS: Glucose, Whole Blood 192 mg/dL (60-115)
[2021-04-19] MEDS: Metoprolol Tartrate 12.5 MG HALFTAB 6.25 MG PO ×2 (07:37→20:46)
[2021-04-19] MEDS: Cholecalciferol (Vitamin D3) 25 MCG TABLET PO (07:38)
[2021-04-19] MEDS: Insulin Lispro 100 UNIT/ML 3 ML VIAL SUBCUT ×2 (07:38→11:31)
[2021-04-19] MEDS: Apixaban 5 MG TABLET PO ×2 (07:38→20:47)
[2021-04-19] MEDS: Magnesium Oxide 400 MG TABLET PO ×2 (07:39→20:47)
[2021-04-19] MEDS: Nystatin Cream 15 GM TUBE 1 APPL TOPICAL ×2 (08:17→20:50)
--- NOTE | 2021-04-19 09:32 | P.PNCA_ITS ---
Subjective Subjective Date of Service: 04/19/21 <MARIKA Artis - Last Filed: 04/19/21 09:49> 04/19/21 <Ab Hassan MD - Last Filed: 04/19/21 12:59> Principal diagnosis: post op ORIF femoral neck, pericardial effusion, chronic afib <MARIKA Artis - Last Filed: 04/19/21 09:49> Interval history: Cardiology follow up for pericardial effusion, chronic afib. Seen at 0900. Today she is awake, sitting in recliner and responding with 1 word answers of yes and no. Still unclear of full orientation. Son had reported that she speaks both Chinese and Neri. She denies having pain or sob. She does not appear in acute distress. Unable to complete full subjective exam. <MARIKA Artis - Last Filed: 04/19/21 09:49> Review of Systems Review of Systems as above <MARIKA Artis - Last Filed: 04/19/21 09:49> Yes Unobtainable due to mental condition <MARIKA Artis - Last Filed: 04/19/21 09:49> Physical Exam Vital Signs: Last Vital Signs Temp 97.0 F 04/19/21 07:10 Pulse 84 04/19/21 08:25 Resp 18 04/19/21 07:10 BP 101/60 04/19/21 08:25 Pulse Ox 100 04/19/21 08:25 Body Mass Index 22.8 <MARIKA Artis - Last Filed: 04/19/21 09:49> Const General: cooperative, no acute distress, alert and awake <MARIKA Artis - Last Filed: 04/19/21 09:49> Eyes Conjunctivae: conjunctivae normal <MARIKA Artis Last Filed: 04/19/21 09:49> Neck Neck: Yes normal visual inspection and Yes JVD (less than yesterday) <MARIKA Artis - Last Filed: 04/19/21 09:49> Resp Other: Resp rate noted to be 28-30 - unlabored. Wearing O2 with cannula. No cough noted. <Mini Hopkins NP - Last Filed: 04/19/21 09:49> Effort & Inspection: normal respiratory effort and not labored <Mini Sandeep [facility] Last Filed: 04/19/21 09:49> Auscultation: clear to auscultation bilaterally, crackles (right base), no rhonchi and no wheezes <[facility] Sandeep [facility] Last Filed: 04/19/21 09:49> Cardio Jugular venous distension: JVD present <[facility] Sandeep [facility] Last Filed: 04/19/21 09:49> Palpation: normal PMI <[facility] Sandeep [facility] Last Filed: 04/19/21 09:49> Rate: regular rate <[facility] Sandeep [facility] Last Filed: 04/19/21 09:49> Rhythm: abnormal rhythm irregularly irregular [facility] Last Filed: 04/19/21 09:49> Heart sounds: S1 normal heart sound present and S2 normal heart sound present <Mini Sandeep [facility] - Last Filed: 04/19/21 09:49> Peripheral pulses: Peripheral pulses 2+ throughout <[facility] Sandeep [facility] Last Filed: 04/19/21 09:49> GI Inspection: Yes normal to inspection <Mini Sandeep [facility] - Last Filed: 04/19/21 09:49> Extrem Other: pitting edema of right arm and legs, less edema left arm <Mini Sandeep [facility] - Last Filed: 04/19/21 09:49> Results Labs and Meds Result diagrams: : 04/19/21 05:15 04/19/21 05:15 <Mini Sandeep [facility] - Last Filed: 04/19/21 09:49> Lab results: Laboratory Results - last 24 hr 04/18/21 04/18/21 04/18/21 07:16 11:35 16:42 WBC RBC Hgb Hct MCV MCH MCHC RDW Plt Count MPV Immature Gran % (Auto) Neut % (Auto) Lymph % (Auto) [place] % (Auto) Eos % (Auto) Baso % (Auto) Lymph # (Auto) [place] # (Auto) Eos # (Auto) Baso # (Auto) Abs Immat Gran (auto) Absolute Neuts (auto) Absolute Nucleated RBC Nucleated RBC % (auto) Sodium Potassium Chloride Carbon Dioxide Anion Gap BUN Creatinine Estim Creat Clear Calc Estimated GFR POC Glucose 187 H 154 H Random Glucose Calcium B-Natriuretic Peptide 499 H 04/18/21 04/19/21 04/19/21 20:13 05:15 05:15 WBC 4.8 RBC 2.40 L Hgb 7.8 L D Hct 24.8 L MCV 103.3 H MCH 32.5 MCHC 31.5 RDW 15.3 Plt Count 226 MPV 10.1 Immature Gran % (Auto) 0.2 Neut % (Auto) 71.6 Lymph % (Auto) 16.2 L [place] % (Auto) 9.5 Eos % (Auto) 2.3 Baso % (Auto) 0.2 Lymph # (Auto) 0.8 L [place] # (Auto) 0.5 Eos # (Auto) 0.1 Baso # (Auto) 0.0 Abs Immat Gran (auto) 0.01 Absolute Neuts (auto) 3.4 Absolute Nucleated RBC 0.000 Nucleated RBC % (auto) 0.0 Sodium 133 L Potassium 4.4 Chloride 102 Carbon Dioxide 27 Anion Gap 8 L BUN 17 H Creatinine 0.85 Estim Creat Clear Calc 46.9 Estimated GFR > 60 POC Glucose 185 H Random Glucose 209 H Calcium 7.8 L B-Natriuretic Peptide 04/19/21 07:04 WBC RBC Hgb Hct MCV MCH MCHC RDW Plt Count MPV Immature Gran % (Auto) Neut % (Auto) Lymph % (Auto) [place] % (Auto) Eos % (Auto) Baso % (Auto) Lymph # (Auto) [place] # (Auto) Eos # (Auto) Baso # (Auto) Abs Immat Gran (auto) Absolute Neuts (auto) Absolute Nucleated RBC Nucleated RBC % (auto) Sodium Potassium Chloride Carbon Dioxide Anion Gap BUN Creatinine Estim Creat Clear Calc Estimated GFR POC Glucose 192 H Random Glucose Calcium B-Natriuretic Peptide <MARIKA Artis - Last Filed: 04/19/21 09:49> Imaging Radiologist's impression: Impressions Chest X-Ray 04/18/21 10:20 IMPRESSION: Cardiomegaly. Bandlike atelectasis left midlung and likely compressive atelectasis right lower lobe. <Mini Prabha LURDES HopkinsC - Last Filed: 04/19/21 09:49> Progress Note: A&P Assessment and plan (1) Pericardial effusion: Status: Acute <Mini AlvarengaLURDES bellC - Last Filed: 04/19/21 09:49> Assessment and Plan: Hx of pericardial effusion with pericardiocentesis at [facility] 02/2021. This admit and echo done 04/12 shows EF 50-55%, apical septum akinetic, mod to severe TR, mod to severe pulm HTN, Large loculated pericardial effusion over the LV. No mention of tamponade features on report. Clinical has been stable. Now post op from ORIF femoral neck from 04/16.? A limited echo yesterday shows Moderate to large pericardial effusion without tamponade. BP this am on low side, 105/57, pulse normal.? Tele shows stable afib, isolated PVCs, occ V paced beat, rates 80s. At present, no need for Pericardiocentesis. She does have clinical signs of fluid overload with anasarca, JVD ( less than yesterday). She had been recieving IV fluids which were stopped yesterday. CXR 04/18 shows atelectasis, no CHF. Recommend gentle diuresis - resume home Torsemide. Will plan to further discuss with Dr Hassan and adjust plan as needed. <MARIKA Artis - Last Filed: 04/19/21 09:49> (2) Anasarca: Status: Acute <LURDES ArtisC - Last Filed: 04/19/21 09:49> (3) Chronic systolic CHF (congestive heart failure): Status: Acute <Mini Prabha LURDES HopkinsC - Last Filed: 04/19/21 09:49> Assessment and Plan: BNP and CXR from yesterday do not support acute CHF diagnosis. Recommend diuretic use as above <LURDES ArtisC - Last Filed: 04/19/21 09:49> (4) Persistent atrial fibrillation: Status: Acute <LURDES ArtisC - Last Filed: 04/19/21 09:49> Assessment and Plan: Stable. Rate controlled with low dose Metoprolol. On Eliquis for anticoagulation. Hgb 7.8 this am. No signs of active bleeding. Post op ORIF femoral neck. May need transfusion. <MARIKA Artis - Last Filed: 04/19/21 09:49> (5) Presence of cardiac pacemaker: Status: Acute <MARIKA Artis - Last Filed: 04/19/21 09:49> Assessment and Plan: Appears to be functioning normally with intermittent V paced beats seen on tele monitoring. No indication for interrogation at this time. <MARIKA Artis - Last Filed: 04/19/21 09:49> Fall Risk Details Current Medications: Current Medications Acetaminophen (Acetaminophen 325 Mg Tablet) 650 mg PO Q6H PRN PRN Reason: Pain, Mild (Pain Scale 1-3) Last Admin: 04/18/21 21:55 Dose: 650 mg Documented by: Apixaban (Apixaban 5 Mg Tablet) 5 mg PO BID [facility] Last Admin: 04/19/21 07:38 Dose: 5 mg Documented by: Atorvastatin Calcium (Atorvastatin Calcium 10 Mg Tablet) 10 mg PO BEDTIME [facility] Last Admin: 04/18/21 21:48 Dose: 10 mg Documented by: Dextrose (Dextrose 50 % 25 Gm/50 Ml Vial) 25 gm IVPUSH Q15M PRN; Protocol PRN Reason: per Hypoglycemia Standing Ord. Last Admin: 04/12/21 16:25 Dose: 25 gm Documented by: Glucose (Glucose Gel 15 Gm Gel..Gram.) 15 gm PO Q15M PRN; Protocol PRN Reason: per Hypoglycemia Standing Ord. Cefazolin Sodium/Dextrose (Ancef) 2 gm in 50 mls @ 100 mls/hr IV POSTOP [facility] Insulin Human Lispro (Insulin Lispro 100 Unit/Ml 3 Ml Vial) 0 unit SUBCUT QIDACHS [facility]; Protocol Last Admin: 04/19/21 07:38 Dose: 2 unit Documented by: Levothyroxine Sodium (Levothyroxine Sodium 112 Mcg Tablet) 112 mcg PO DAILY@0600 [facility] Last Admin: 04/19/21 05:52 Dose: 112 mcg Documented by: Magnesium Oxide (Magnesium Oxide 400 Mg Tablet) 400 mg PO BID [facility] Last Admin: 04/19/21 07:39 Dose: 400 mg Documented by: Melatonin (Melatonin 3 Mg Tablet) 6 mg PO BEDTIME PRN PRN Reason: Insomnia Metoprolol Tartrate (Metoprolol Tartrate 12.5 Mg Halftab) 6.25 mg PO BID [facility] Last Admin: 04/19/21 07:37 Dose: 6.25 mg Documented by: Nystatin (Nystatin Cream 15 Gm Tube) 1 appl TOPICAL BID [facility]; Protocol Last Admin: 04/19/21 08:17 Dose: 1 appl Documented by: Pharmacy Consult (Consult Rx Perform Med Rec) 1 each MISCELLANE ONCE PRN PRN Reason: Consult order Senna (Sennosides 8.6 Mg Tablet) 17.2 mg PO BEDTIME PRN PRN Reason: Constipation Sodium Chloride (0.9 % Sodium Chloride Flush 3 Ml Syringe) 3 ml IVFLUSH QSHIFT [facility] Last Admin: 04/19/21 07:38 Dose: 3 ml Documented by: Vitamin D (Cholecalciferol (Vitamin D3) 25 Mcg Tablet) 25 mcg PO DAILY [facility] Last Admin: 04/19/21 07:38 Dose: 25 mcg Documented by: <MARIKA Artis - Last Filed: 04/19/21 09:49> Time Spent With Patient Time: Total time spent is greater than 50% in coordination of care (as documented) at patient's floor/unit and/or counseling patient: 22 <MARIKA Artis - Last Filed: 04/19/21 09:49> Time with patient: 15 - 24 minutes <MARIKA Artis - Last Filed: 04/19/21 09:49> Progress Note: Quality Stroke Does the patient have a stroke diagnosis?: No <MARIKA Artis - Last Filed: 04/19/21 09:49> Procedures Date of Service Date of Service: 04/19/21 <MARIKA Artis Last Filed: 04/19/21 09:49>
--- NOTE | 2021-04-19 09:37 | P.PNOP_ITS ---
Subjective Subjective Date of Service: 04/19/21 Principal diagnosis: post op ORIF femoral neck, pericardial effusion, chronic afib Interval history: POD3 s/p right hip sam. Patient resting comfortably in bed. No overnight events. No acute disctress. Physical Exam Vital Signs: Vital Signs: Last Vital Signs Temp 97.0 F 04/19/21 07:10 Pulse 84 04/19/21 08:25 Resp 18 04/19/21 07:10 BP 101/60 04/19/21 08:25 Pulse Ox 100 04/19/21 08:25 Body Mass Index 22.8 Const: General: cooperative, healthy appearing and no acute distress Resp: Effort & Inspection: normal respiratory effort and able to speak in complete sentences Cardio: Rate: regular rate Peripheral pulses: Peripheral pulses 2+ throughout GI: Palpation (GI): Soft to palpation Skin: Lesions: no lesions Rashes: no rashes Extrem: Other: Right hip bandage intact, no erythema, pulses present. Procedures Date of Service Date of Service: 04/19/21 Progress Note: A&P Assessment and plan (1) Femoral neck fracture: Status: Acute Assessment and Plan: * Continue pain mgmnt * Anticoag mgt per medicine team. ? Hold for procedure * Continue PT /OT for Right hip hemiarthroplasty posterior precautions * Dispo planning-PT, pain mgmnt Fall Risk Details Current Medications: Current Medications Acetaminophen (Acetaminophen 325 Mg Tablet) 650 mg PO Q6H PRN PRN Reason: Pain, Mild (Pain Scale 1-3) Last Admin: 04/18/21 21:55 Dose: 650 mg Documented by: Apixaban (Apixaban 5 Mg Tablet) 5 mg PO BID [facility] Last Admin: 04/19/21 07:38 Dose: 5 mg Documented by: Atorvastatin Calcium (Atorvastatin Calcium 10 Mg Tablet) 10 mg PO BEDTIME [facility] Last Admin: 04/18/21 21:48 Dose: 10 mg Documented by: Dextrose (Dextrose 50 % 25 Gm/50 Ml Vial) 25 gm IVPUSH Q15M PRN; Protocol PRN Reason: per Hypoglycemia Standing Ord. Last Admin: 04/12/21 16:25 Dose: 25 gm Documented by: Glucose (Glucose Gel 15 Gm Gel..Gram.) 15 gm PO Q15M PRN; Protocol PRN Reason: per Hypoglycemia Standing Ord. Cefazolin Sodium/Dextrose (Ancef) 2 gm in 50 mls @ 100 mls/hr IV POSTOP [facility] Insulin Human Lispro (Insulin Lispro 100 Unit/Ml 3 Ml Vial) 0 unit SUBCUT QIDACHS [facility]; Protocol Last Admin: 04/19/21 07:38 Dose: 2 unit Documented by: Levothyroxine Sodium (Levothyroxine Sodium 112 Mcg Tablet) 112 mcg PO DAILY@0600 [facility] Last Admin: 04/19/21 05:52 Dose: 112 mcg Documented by: Magnesium Oxide (Magnesium Oxide 400 Mg Tablet) 400 mg PO BID [facility] Last Admin: 04/19/21 07:39 Dose: 400 mg Documented by: Melatonin (Melatonin 3 Mg Tablet) 6 mg PO BEDTIME PRN PRN Reason: Insomnia Metoprolol Tartrate (Metoprolol Tartrate 12.5 Mg Halftab) 6.25 mg PO BID [facility] Last Admin: 04/19/21 07:37 Dose: 6.25 mg Documented by: Nystatin (Nystatin Cream 15 Gm Tube) 1 appl TOPICAL BID [facility]; Protocol Last Admin: 04/19/21 08:17 Dose: 1 appl Documented by: Pharmacy Consult (Consult Rx Perform Med Rec) 1 each MISCELLANE ONCE PRN PRN Reason: Consult order Senna (Sennosides 8.6 Mg Tablet) 17.2 mg PO BEDTIME PRN PRN Reason: Constipation Sodium Chloride (0.9 % Sodium Chloride Flush 3 Ml Syringe) 3 ml IVFLUSH QSHIFT [facility] Last Admin: 04/19/21 07:38 Dose: 3 ml Documented by: Vitamin D (Cholecalciferol (Vitamin D3) 25 Mcg Tablet) 25 mcg PO DAILY [facility] Last Admin: 04/19/21 07:38 Dose: 25 mcg Documented by: Time Spent With Patient Time: Total time spent is greater than 50% in coordination of care (as documented) at patient's floor/unit and/or counseling patient: Time with patient: less than 15 minutes Quality Stroke Does the patient have a stroke diagnosis?: No VTE Prior VTE?: No VTE Risk Level:: Medical - moderate - high VTE Device Contraindication: Treatment Not Indicated VTE Drug Contraindication: N/A - Med Ordered
--- NOTE | 2021-04-19 09:45 | P.OP_ITS ---
Operative Note Operative Note Date of Service: 04/19/21 Narrative: Pre-op diagnosis: right femoral neck fracture Post-op diagnosis: same Procedure: right hip hemiarthroplasty Implants: Strker #7, 132 deg +8 bipolar Surgeon: Joesph Sheets MD Anesthesia: GETA and local Was an Marketing Designer used for this Procedure?: Yes Marketing Designer: Madny Dockery Estimated blood loss (mL): 150 IV fluids (mL): 500 Pathology: other Condition: stable Disposition: PACU Procedure in detail: Patient was brought to the operative room placed in the lateral decubitus position. All bony prominences were well padded he was prepped and draped in standard sterile fashion. IV antibiotics per weight were administered and a time-out was called to identify proper site proper procedure proper surgeon. Radiographs were available and confirmed. I began by making a curvilinear incision over the posterolateral aspect of the greater trochanter. Dissection was taken down to the tensor fascia which was incised in line with the incision and a Charnley retractor was placed. The hip was internally rotated and the external rotators were identified. All vessels in the area were cauterized and a full-thickness capsular/external rotator layer was developed in a hockey-stick fashion starting just proximal to the piriformis. This layer was tagged and the displaced femoral neck fracture was identified. Clean-up cut was performed and the head was removed and measured on the back table. I then copiously irrigated the acetabulum and removed all bony fragments. Once this was done I used a cookie cutter to lateralize and a Charnley awl to identify the canal and then sequentially broached up to a #7. I then trialed with a standard head and a bipolar component matching the femoral head size. I was happy with the range of motion but she was dislcoation ot 30 deg or rotation when adducted. I trialed w ith a +5 and a + 8 and the +8 was stable. Therefore I removed all instrumentation and copiously irrigated. I then placed my final implant and re- trialed. I was satisfied with the __+8/47 bipolar implant. Once this was done I closed the capsular layer with FiberWire and then performed a layered closure with jan on skin. Patient was placed in sterile dressing extubated brought to recovery room in stable condition there were no known complications.
--- NOTE | 2021-04-19 11:20 | MHC.CM.PN ---
Per ROUNDS discussion, Patient is not yet medically cleared for dc (Moderate to severe Pericardial Effusion). DC plan is to return to [facility] and CM will continue to follow.
[2021-04-19 11:28] LABS: Glucose, Whole Blood 235 mg/dL (60-115)
--- NOTE | 2021-04-19 11:52 | HO.PM.IMPN ---
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 Review of Systems Unable to obtain review of system since patient is status post recent CVA and speech impairment Physical Exam Vital Signs: Vital Signs: Last Vital Signs Temp 96.8 F 04/19/21 11:31 Pulse 71 04/19/21 11:31 Resp 18 04/19/21 11:31 BP 116/46 L 04/19/21 11:31 Pulse Ox 86 L 04/19/21 11:31 Body Mass Index 22.8 General awake alert,no acute distress, generalized anasarca Neck + JVD. CVS regular rate rhythm, Respiratory lungs diminished breath sounds, no respiratory distress, no use of accessory muscles, no wheeze, no rhonchi. Gastrointestinal abdomen soft, nontender, bowel sounds audible, no rigidity. Extremities right upper extremity edema, bilateral lower extremity edema right greater than left Neuro moving all 4 extremities Skin no rash Objective Data Active Medications Acetaminophen (Acetaminophen 325 Mg Tablet) 650 mg PO Q6H PRN PRN Reason: Pain, Mild (Pain Scale 1-3) Last Admin: 04/18/21 21:55 Dose: 650 mg Documented by: KRISS Apixaban (Apixaban 5 Mg Tablet) 5 mg PO BID [facility] Last Admin: 04/19/21 07:38 Dose: 5 mg Documented by: SAJI Atorvastatin Calcium (Atorvastatin Calcium 10 Mg Tablet) 10 mg PO BEDTIME [facility] Last Admin: 04/18/21 21:48 Dose: 10 mg Documented by: KRISS Dextrose (Dextrose 50 % 25 Gm/50 Ml Vial) 25 gm IVPUSH Q15M PRN; Protocol PRN Reason: per Hypoglycemia Standing Ord. Last Admin: 04/12/21 16:25 Dose: 25 gm Documented by: PATO Glucose (Glucose Gel 15 Gm Gel..Gram.) 15 gm PO Q15M PRN; Protocol PRN Reason: per Hypoglycemia Standing Ord. Cefazolin Sodium/Dextrose (Ancef) 2 gm in 50 mls @ 100 mls/hr IV POSTOP [facility] Insulin Human Lispro (Insulin Lispro 100 Unit/Ml 3 Ml Vial) 0 unit SUBCUT QIDACHS [facility]; Protocol Last Admin: 04/19/21 11:31 Dose: 4 unit Documented by: SAJI Levothyroxine Sodium (Levothyroxine Sodium 112 Mcg Tablet) 112 mcg PO DAILY@0600 [facility] Last Admin: 04/19/21 05:52 Dose: 112 mcg Documented by: KSENIA Magnesium Oxide (Magnesium Oxide 400 Mg Tablet) 400 mg PO BID [facility] Last Admin: 04/19/21 07:39 Dose: 400 mg Documented by: SAJI Melatonin (Melatonin 3 Mg Tablet) 6 mg PO BEDTIME PRN PRN Reason: Insomnia Metoprolol Tartrate (Metoprolol Tartrate 12.5 Mg Halftab) 6.25 mg PO BID [facility] Last Admin: 04/19/21 07:37 Dose: 6.25 mg Documented by: SAJI Nystatin (Nystatin Cream 15 Gm Tube) 1 appl TOPICAL BID [facility]; Protocol Last Admin: 04/19/21 08:17 Dose: 1 appl Documented by: SAJI Pharmacy Consult (Consult Rx Perform Med Rec) 1 each MISCELLANE ONCE PRN PRN Reason: Consult order Senna (Sennosides 8.6 Mg Tablet) 17.2 mg PO BEDTIME PRN PRN Reason: Constipation Sodium Chloride (0.9 % Sodium Chloride Flush 3 Ml Syringe) 3 ml IVFLUSH QSHIFT [facility] Last Admin: 04/19/21 07:38 Dose: 3 ml Documented by: SAJI Vitamin D (Cholecalciferol (Vitamin D3) 25 Mcg Tablet) 25 mcg PO DAILY [facility] Last Admin: 04/19/21 07:38 Dose: 25 mcg Documented by: SAJI Labs CBC & Chem 7: 04/19/21 05:15 04/19/21 05:15 Labs: Laboratory Results - last 24 hr 04/18/21 04/18/21 04/19/21 16:42 20:13 05:15 MCV 103.3 H MCH 32.5 MCHC 31.5 RDW 15.3 Plt Count 226 MPV 10.1 Immature Gran % (Auto) 0.2 Neut % (Auto) 71.6 Lymph % (Auto) 16.2 L [place] % (Auto) 9.5 Eos % (Auto) 2.3 Baso % (Auto) 0.2 Lymph # (Auto) 0.8 L [place] # (Auto) 0.5 Eos # (Auto) 0.1 Baso # (Auto) 0.0 Abs Immat Gran (auto) 0.01 Absolute Neuts (auto) 3.4 Absolute Nucleated RBC 0.000 Nucleated RBC % (auto) 0.0 Anion Gap Estim Creat Clear Calc Estimated GFR POC Glucose 154 H 185 H Random Glucose Calcium 04/19/21 04/19/21 04/19/21 05:15 07:04 11:23 MCV MCH MCHC RDW Plt Count MPV Immature Gran % (Auto) Neut % (Auto) Lymph % (Auto) [place] % (Auto) Eos % (Auto) Baso % (Auto) Lymph # (Auto) [place] # (Auto) Eos # (Auto) Baso # (Auto) Abs Immat Gran (auto) Absolute Neuts (auto) Absolute Nucleated RBC Nucleated RBC % (auto) Anion Gap 8 L Estim Creat Clear Calc 46.9 Estimated GFR > 60 POC Glucose 192 H 235 H Random Glucose 209 H Calcium 7.8 L Assessment and Plan (1) Anasarca: Status: Acute (2) Acute on chronic systolic HF (heart failure): Status: Acute (3) Femoral neck fracture: Status: Acute (4) Pericardial effusion: Status: Acute (5) Presence of cardiac pacemaker: Status: Acute (6) Persistent atrial fibrillation: Status: Acute Assessment and Plan: 85F presented with inability to stand due to right hip fracture from fall right hip fracture POD 3 Good pain control,on eliquis, hematocrit dropped to 24.8, question dilutional with recent IV fluid, since patient asymptomatic will hold off on blood transfusion to avoid fluid overload, monitor cbc, Spoke with patient's son at bedside he provided consent for blood transfusion if needed Continue out of bed to chair and physical therapy as tolerated Acute on chronic systolic chf, severe pulmonary htn, pericardial effusion, generalized anasarca Patient noted to have generalized anasarca, elevated JVD, repeat limited echo showed moderate to large loculated effusion BP borderline low case discussed with Cardiology they recommend gentle IV diuresis and follow clinical course Will add IV Lasix 20 mg now continue low-dose metoprolol, follow clinical course, follow BMP and BNP dailyI/Os, stable renal function at present Will check TSH question hypothyroidism contributing to edema Spoke with patient's son Shiraz Caro and updated him regarding patient's current clinical condition permanent atrial fibrillation Stable ventricular rate on metoprolol, continue Eliquis history of CVA with residual dysphagia, dysarthria cont.NDD2 solids, nectar thick liquids, continue statin and Eliquis ? DM with hypoglycemia due to poor intake Now with hyperglycemia, was on Januvia and metformin at home, will resume low-dose Januvia, continue sliding scale and monitor poc CKD III listed in medical history, creatinine remains within normal range Acute on chronic anemia Hematocrit dropped to 24.8 likely dilutaional, inflammatory, postop, will hold off on blood transfusion since patient with significant fluid overload /denies shortness of breath, monitor CBC hypothyroid Continue synthroid and check TSH DNR/DNI Quality Stroke Does the patient have a stroke diagnosis?: No VTE Prior VTE?: No VTE Risk Level:: Medical - moderate - high VTE Device Contraindication: Treatment Not Indicated VTE Drug Contraindication: N/A - Med Ordered
[2021-04-19] MEDS: Furosemide 20 MG/2 ML VIAL 10 MG IVPUSH (12:49)
[2021-04-19] MEDS: SITagliptin Phosphate 25 MG TABLET PO (12:49)
--- NOTE | 2021-04-19 13:40 | MHC.CLN ---
F/U PATIENT WITH GENERALIZED EDEMA AND PERICARDIAL EFFUSION. DIET=DIABETIC 1800 KCAL, NDD2, NECTAR THICK LIQUIDS. GLUCERNA BID ADDS 474 KCAL, 20 G PROTEIN. RECORDED INTAKE SHOWS PO USUALLY 0-25% WITH SOME MEALS 50%. SUPPLEMENT IN PLACE AND CONTINUE. FOLLOW PO INTAKE.
[2021-04-19 16:42] LABS: Glucose, Whole Blood 132 mg/dL (60-115)
[2021-04-19 20:20] LABS: Glucose, Whole Blood 137 mg/dL (60-115)
[2021-04-19] MEDS: Atorvastatin Calcium 10 MG TABLET PO (20:47)
[2021-04-20] VITALS (8 sets, daily range): BP systolic 100–125; BP diastolic 50–73; PULSE 76–92; RESP 16–18; TEMP 36.2–36.5; O2SAT 80–100
[2021-04-20] MEDS: 0.9 % Sodium Chloride Flush 3 ML SYRINGE IVFLUSH ×3 (00:46→23:26)
[2021-04-20 05:16] LABS: MANUAL DIFF FLAG NO
[2021-04-20 05:21] LABS: Basophils Percent Auto 0.2 % (0-2); Eosinophils Absolute Auto 0.1 X10*3/uL (0.0-0.4); Eosinophils Percent Auto 1.7 % (0-4); Hematocrit 27.5 % (37-47); Imm Gran Abs Auto 0.03 X10*3/uL (0.00-0.03); Imm Gran Pct Auto 0.6 % (0.0-0.4); Lymphocytes Absolute Auto 0.9 X10*3/uL (1.2-4.9); Lymphocytes Percent Auto 17.6 % (20-40); Mean Corpuscular HGB Conc 32.7 g/dl (31.0-35.0); Mean Corpuscular Hemoglobin 33.5 pg (27.0-33.0); Mean Corpuscular Volume 102.2 fL (80-98); Mean Platelet Volume 9.7 fL (9.4-12.3); Monocytes Absolute Auto 0.4 X10*3/uL (0.1-1.2); Monocytes Percent Auto 7.3 % (2-11); Neutrophils Absolute Auto 3.8 X10*3/uL (2.0-8.3); Neutrophils Percent Auto 72.6 % (45-73); Platelet Count 250 X10*3/uL (160-400); Red Blood Count 2.69 X10*6/uL (4.20-5.50); Red Cell Distribution Width 15.5 % (11.0-16.0); White Blood Count 5.2 X10*3/uL (4.8-10.8)
[2021-04-20 05:35] LABS: Anion Gap 13 (12-20); Blood Urea Nitrogen 18 mg/dL (9-16); Calcium 8.1 mg/dL (8.4-10.2); Carbon Dioxide 24 mmol/L (22-29); Chloride 103 mmol/L (96-108); Creatinine Clr Calc Pharmacy 49.8; Estimated Glomerular Filt Rate > 60; Glucose Random 182 mg/dL (60-115); Potassium 4.8 mmol/L (3.3-5.1); Sodium 135 mmol/L (135-145)
[2021-04-20] MEDS: Levothyroxine Sodium 112 MCG TABLET PO (06:33)
[2021-04-20 07:57] LABS: Glucose, Whole Blood 124 mg/dL (60-115)
--- NOTE | 2021-04-20 08:26 | P.PNOP_ITS ---
Subjective Subjective Date of Service: 04/20/21 Principal diagnosis: post op ORIF femoral neck, pericardial effusion, chronic afib Interval history: POD3 s/p Rt hip sam. Patient resting comfortably in bed. In no acute distress. Physical Exam Vital Signs: Vital Signs: Last Vital Signs Temp 97.4 F 04/20/21 07:31 Pulse 89 04/20/21 07:31 Resp 18 04/20/21 07:31 BP 109/54 L 04/20/21 07:31 Pulse Ox 97 04/20/21 08:15 Body Mass Index 22.8 Const: General: cooperative, healthy appearing and no acute distress Resp: Effort & Inspection: normal respiratory effort and able to speak in complete sentences Cardio: Rate: regular rate Peripheral pulses: Peripheral pulses 2+ throughout GI: Palpation (GI): Soft to palpation Skin: Lesions: no lesions Rashes: no rashes Extrem: Other: Right hip aquacel dressing changed. Mullen intact. No drainage, erythema, or ecchymosis. NVI. Procedures Date of Service Date of Service: 04/20/21 Progress Note: A&P Assessment and plan (1) Femoral neck fracture: Status: Acute Assessment and Plan: * Continue pain mgmnt * Anticoag mgt per medicine team * Continue PT /OT for Right hip hemiarthroplasty posterior precautions * Dispo planning-PT, pain mgmnt, medicine team * No additional orthopedic intervention needed at this time. Available for consult if needed. Fall Risk Details Current Medications: Current Medications Acetaminophen (Acetaminophen 325 Mg Tablet) 650 mg PO Q6H PRN PRN Reason: Pain, Mild (Pain Scale 1-3) Last Admin: 04/18/21 21:55 Dose: 650 mg Documented by: Apixaban (Apixaban 5 Mg Tablet) 5 mg PO BID [facility] Last Admin: 04/19/21 20:47 Dose: 5 mg Documented by: Atorvastatin Calcium (Atorvastatin Calcium 10 Mg Tablet) 10 mg PO BEDTIME [facility] Last Admin: 04/19/21 20:47 Dose: 10 mg Documented by: Dextrose (Dextrose 50 % 25 Gm/50 Ml Vial) 25 gm IVPUSH Q15M PRN; Protocol PRN Reason: per Hypoglycemia Standing Ord. Last Admin: 04/12/21 16:25 Dose: 25 gm Documented by: Glucose (Glucose Gel 15 Gm Gel..Gram.) 15 gm PO Q15M PRN; Protocol PRN Reason: per Hypoglycemia Standing Ord. Cefazolin Sodium/Dextrose (Ancef) 2 gm in 50 mls @ 100 mls/hr IV POSTOP [facility] Furosemide 200 mg/ Sodium (Chloride) 100 mls @ 2.5 mls/hr IVCONT .Q24H [facility] Albumin Human (Kedbumin 25 %) 100 mls @ 100 mls/hr IV ONCE ONE Stop: 04/20/21 09:07 Insulin Human Lispro (Insulin Lispro 100 Unit/Ml 3 Ml Vial) 0 unit SUBCUT QIDACHS [facility]; Protocol Last Admin: 04/20/21 08:05 Dose: Not Given Documented by: Levothyroxine Sodium (Levothyroxine Sodium 112 Mcg Tablet) 112 mcg PO DAILY@0600 [facility] Last Admin: 04/20/21 06:33 Dose: 112 mcg Documented by: Magnesium Oxide (Magnesium Oxide 400 Mg Tablet) 400 mg PO BID [facility] Last Admin: 04/19/21 20:47 Dose: 400 mg Documented by: Melatonin (Melatonin 3 Mg Tablet) 6 mg PO BEDTIME PRN PRN Reason: Insomnia Metoprolol Tartrate (Metoprolol Tartrate 12.5 Mg Halftab) 6.25 mg PO BID [facility] Last Admin: 04/19/21 20:46 Dose: 6.25 mg Documented by: Nystatin (Nystatin Cream 15 Gm Tube) 1 appl TOPICAL BID [facility]; Protocol Last Admin: 04/19/21 20:50 Dose: 1 appl Documented by: Pharmacy Consult (Consult Rx Perform Med Rec) 1 each MISCELLANE ONCE PRN PRN Reason: Consult order Senna (Sennosides 8.6 Mg Tablet) 17.2 mg PO BEDTIME PRN PRN Reason: Constipation Sitagliptin Phosphate (Sitagliptin Phosphate 25 Mg Tablet) 25 mg PO DAILY [facility] Last Admin: 04/19/21 12:49 Dose: 25 mg Documented by: Sodium Chloride (0.9 % Sodium Chloride Flush 3 Ml Syringe) 3 ml IVFLUSH QSHIFT [facility] Last Admin: 04/20/21 00:46 Dose: 3 ml Documented by: Vitamin D (Cholecalciferol (Vitamin D3) 25 Mcg Tablet) 25 mcg PO DAILY [facility] Last Admin: 04/19/21 07:38 Dose: 25 mcg Documented by: Time Spent With Patient Time: Total time spent is greater than 50% in coordination of care (as documented) at patient's floor/unit and/or counseling patient: Time with patient: less than 15 minutes Quality Stroke Does the patient have a stroke diagnosis?: No VTE Prior VTE?: No VTE Risk Level:: Medical - moderate - high VTE Device Contraindication: Treatment Not Indicated VTE Drug Contraindication: N/A - Med Ordered
[2021-04-20 08:29] LABS: Thyroid Stimulating Hormone 6.43 uIU/mL (0.32-4.0)
[2021-04-20] MEDS: Furosemide 200 MG in 0.9 % Sodium Chloride 80 ML IVCONT (08:54)
[2021-04-20] MEDS: Apixaban 5 MG TABLET PO ×2 (08:55→21:51)
[2021-04-20] MEDS: Magnesium Oxide 400 MG TABLET PO ×2 (08:55→21:51)
[2021-04-20] MEDS: Metoprolol Tartrate 12.5 MG HALFTAB 6.25 MG PO ×2 (08:55→21:52)
[2021-04-20] MEDS: SITagliptin Phosphate 25 MG TABLET PO (08:55)
[2021-04-20] MEDS: Cholecalciferol (Vitamin D3) 25 MCG TABLET PO (08:55)
[2021-04-20] MEDS: Nystatin Cream 15 GM TUBE 1 APPL TOPICAL ×2 (08:56→21:53)
--- NOTE | 2021-04-20 10:39 | P.PNCA_ITS ---
Subjective Subjective Date of Service: 04/20/21 <MARIKA Artis - Last Filed: 04/20/21 10:56> 04/20/21 <Ab Hassan MD - Last Filed: 04/20/21 11:23> Principal diagnosis: post op ORIF femoral neck, pericardial effusion, chronic afib <MARIKA Artis - Last Filed: 04/20/21 10:56> Interval history: Cardiology follow-up for pericardial effusion, chronic AFib. seen at 0830. Today she is observed resting in bed in no acute distress. She is more awake for me today and answering questions with 1 word answers. She denies having any pain or shortness of breath. She does follow commands and moves all extremities. She is noted to be grossly edematous. Full orientation remains unclear. <MARIKA Artis - Last Filed: 04/20/21 10:56> Review of Systems Review of Systems as above <MARIKA Artis - Last Filed: 04/20/21 10:56> Yes Unobtainable due to mental condition <MARIKA Artis Last Fi led: 04/20/21 10:56> Physical Exam Vital Signs: Last Vital Signs Temp 97.4 F 04/20/21 07:31 Pulse 89 04/20/21 07:31 Resp 18 04/20/21 07:31 BP 109/54 L 04/20/21 07:31 Pulse Ox 97 04/20/21 08:15 Body Mass Index 22.8 <MARIKA Artis - Last Filed: 04/20/21 10:56> Const Other: follows commands. Answer some questions. <MARIKA Artis - Last Filed: 04/20/21 10:56> General: cooperative, no acute distress, alert and awake <MARIKA Artis Last Filed: 04/20/21 10:56> Orientation/consciousness: patient oriented x3 <MARIKA Artis Last Filed: 04/20/21 10:56> Neck Neck: Yes normal visual inspection <MARIKA Artsi Last Filed: 04/20/21 10:56> Resp Effort & Inspection: normal respiratory effort and not labored <Miniisa Hopkins NP - Last Filed: 04/20/21 10:56> Auscultation: clear to auscultation bilaterally, no rales, no rhonchi and no wheezes <Miniisa Hopkins NP - Last Filed: 04/20/21 10:56> Cardio Rate: regular rate <[facility] Sandeep [facility] - Last Filed: 04/20/21 10:56> Rhythm: abnormal rhythm irregularly irregular <[facility] Sandeep [facility] - Last Filed: 04/20/21 10:56> Heart sounds: S1 normal heart sound present and S2 normal heart sound present <[facility] Sandeep [facility] Last Filed: 04/20/21 10:56> Peripheral pulses: Peripheral pulses 2+ throughout <[facility] Sandeep [facility] - Last Filed: 04/20/21 10:56> GI Inspection: Yes normal to inspection <Mini Sandeep [facility] - Last Filed: 04/20/21 10:56> Neuro General: patient oriented x3 <Mini Sandeep [facility] - Last Filed: 04/20/21 10:56> Extrem Other: Gross anasarca noted <Mini Hopkins [facility] - Last Filed: 04/20/21 10:56> Results Labs and Meds Result diagrams: : 04/20/21 04:59 04/20/21 04:59 <Mini Hopkins [facility] - Last Filed: 04/20/21 10:56> Lab results: Laboratory Results - last 24 hr 04/19/21 04/19/21 04/19/21 11:23 16:22 20:15 WBC RBC Hgb Hct MCV MCH MCHC RDW Plt Count MPV Immature Gran % (Auto) Neut % (Auto) Lymph % (Auto) [place] % (Auto) Eos % (Auto) Baso % (Auto) Lymph # (Auto) [place] # (Auto) Eos # (Auto) Baso # (Auto) Abs Immat Gran (auto) Absolute Neuts (auto) Absolute Nucleated RBC Nucleated RBC % (auto) Sodium Potassium Chloride Carbon Dioxide Anion Gap BUN Creatinine Estim Creat Clear Calc Estimated GFR POC Glucose 235 H 132 H 137 H Random Glucose Calcium TSH 04/20/21 04/20/21 04/20/21 04:59 04:59 07:53 WBC 5.2 RBC 2.69 L Hgb 9.0 L Hct 27.5 L MCV 102.2 H MCH 33.5 H MCHC 32.7 RDW 15.5 Plt Count 250 MPV 9.7 Immature Gran % (Auto) 0.6 H Neut % (Auto) 72.6 Lymph % (Auto) 17.6 L [place] % (Auto) 7.3 Eos % (Auto) 1.7 Baso % (Auto) 0.2 Lymph # (Auto) 0.9 L [place] # (Auto) 0.4 Eos # (Auto) 0.1 Baso # (Auto) 0.0 Abs Immat Gran (auto) 0.03 Absolute Neuts (auto) 3.8 Absolute Nucleated RBC 0.000 Nucleated RBC % (auto) 0.0 Sodium 135 Potassium 4.8 Chloride 103 Carbon Dioxide 24 Anion Gap 13 BUN 18 H Creatinine 0.80 Estim Creat Clear Calc 49.8 Estimated GFR > 60 POC Glucose 124 H Random Glucose 182 H Calcium 8.1 L TSH 6.43 H <MARIKA Artis - Last Filed: 04/20/21 10:56> Progress Note: A&P Assessment and plan (1) Pericardial effusion: Status: Acute <MARIKA Artis - Last Filed: 04/20/21 10:56> Assessment and Plan: Hx of pericardial effusion with pericardiocentesis at [facility] 02/2021. This admit initially with echo showing large loculated effusion over the LV without tamponade. Repeat limited echo doen 04/18 shows moderate to large effusion without tamponade. Her vital signs have remained stable. BP is on low side but no significant hypotension. Pulse stable in 70-80s. No plan for Pericardiocentesis at this time. We will plan to do a limited echo again as outpt in few weeks to reeval. <MARIKA Artis - Last Filed: 04/20/21 10:56> (2) Anasarca: Status: Acute <MARIKA Artis - Last Filed: 04/20/21 10:56> Assessment and Plan: Initially post op she was getting IV fluids, which were stopped on 04/18 when edema was noted. She was not in acute HF as BNP had come down and CXR showed only atelectasis. Home Torsemide has been on hold this admit. Albumin 2.4 on 04/12. She has gross soft anasarca at this time. PCP has already ordered Lasix IV this am. Recommend gentle diuresis and resume home Torsemide. <MARIKA Artis - Last Filed: 04/20/21 10:56> (3) Persistent atrial fibrillation: Status: Acute <MARIKA Artis - Last Filed: 04/20/21 10:56> Assessment and Plan: Rate controlled with low dose Metoprolol. Tele shows afib rates 70- 80s, occ V paced beat. On Eliquis for anticoagulation. Has post op anemia. No signs of active bleeding. No med changes made. <MARIKA Artis - Last Filed: 04/20/21 10:56> (4) Presence of cardiac pacemaker: Status: Acute <MARIKA Artis - Last Filed: 04/20/21 10:56> Assessment and Plan: Appears to be functioning normally. No need for device interrogation at this time <MARIKA Artis - Last Filed: 04/20/21 10:56> Fall Risk Details Current Medications: Current Medications Acetaminophen (Acetaminophen 325 Mg Tablet) 650 mg PO Q6H PRN PRN Reason: Pain, Mild (Pain Scale 1-3) Last Admin: 04/18/21 21:55 Dose: 650 mg Documented by: Apixaban (Apixaban 5 Mg Tablet) 5 mg PO BID [facility] Last Admin: 04/20/21 08:55 Dose: 5 mg Documented by: Atorvastatin Calcium (Atorvastatin Calcium 10 Mg Tablet) 10 mg PO BEDTIME [facility] Last Admin: 04/19/21 20:47 Dose: 10 mg Documented by: Dextrose (Dextrose 50 % 25 Gm/50 Ml Vial) 25 gm IVPUSH Q15M PRN; Protocol PRN Reason: per Hypoglycemia Standing Ord. Last Admin: 04/12/21 16:25 Dose: 25 gm Documented by: Glucose (Glucose Gel 15 Gm Gel..Gram.) 15 gm PO Q15M PRN; Protocol PRN Reason: per Hypoglycemia Standing Ord. Cefazolin Sodium/Dextrose (Ancef) 2 gm in 50 mls @ 100 mls/hr IV POSTOP [facility] Furosemide 200 mg/ Sodium (Chloride) 100 mls @ 2.5 mls/hr IVCONT .Q24H [facility] Last Admin: 04/20/21 08:54 Dose: 5 mg/hr, 2.5 mls/hr Documented by: Insulin Human Lispro (Insulin Lispro 100 Unit/Ml 3 Ml Vial) 0 unit SUBCUT QIDACHS [facility]; Protocol Last Admin: 04/20/21 08:05 Dose: Not Given Documented by: Levothyroxine Sodium (Levothyroxine Sodium 112 Mcg Tablet) 112 mcg PO DAILY@0600 [facility] Last Admin: 04/20/21 06:33 Dose: 112 mcg Documented by: Magnesium Oxide (Magnesium Oxide 400 Mg Tablet) 400 mg PO BID [facility] Last Admin: 04/20/21 08:55 Dose: 400 mg Documented by: Melatonin (Melatonin 3 Mg Tablet) 6 mg PO BEDTIME PRN PRN Reason: Insomnia Metoprolol Tartrate (Metoprolol Tartrate 12.5 Mg Halftab) 6.25 mg PO BID [facility] Last Admin: 04/20/21 08:55 Dose: 6.25 mg Documented by: Nystatin (Nystatin Cream 15 Gm Tube) 1 appl TOPICAL BID [facility]; Protocol Last Admin: 04/20/21 08:56 Dose: 1 appl Documented by: Pharmacy Consult (Consult Rx Perform Med Rec) 1 each MISCELLANE ONCE PRN PRN Reason: Consult order Senna (Sennosides 8.6 Mg Tablet) 17.2 mg PO BEDTIME PRN PRN Reason: Constipation Sitagliptin Phosphate (Sitagliptin Phosphate 25 Mg Tablet) 25 mg PO DAILY [facility] Last Admin: 04/20/21 08:55 Dose: 25 mg Documented by: Sodium Chloride (0.9 % Sodium Chloride Flush 3 Ml Syringe) 3 ml IVFLUSH QSHIFT [facility] Last Admin: 04/20/21 08:55 Dose: 3 ml Documented by: Vitamin D (Cholecalciferol (Vitamin D3) 25 Mcg Tablet) 25 mcg PO DAILY [facility] Last Admin: 04/20/21 08:55 Dose: 25 mcg Documented by: <MARIKA Artis - Last Filed: 04/20/21 10:56> Time Spent With Patient Time: Total time spent is greater than 50% in coordination of care (as documented) at patient's floor/unit and/or counseling patient: 24 <MARIKA Artis - Last Filed: 04/20/21 10:56> Time with patient: 15 - 24 minutes <MARIKA Artis - Last Filed: 04/20/21 10:56> Progress Note: Quality Stroke Does the patient have a stroke diagnosis?: No <MARIKA Artis - Last Filed: 04/20/21 10:56> Procedures Date of Service Date of Service: 04/20/21 <MARIKA Artis - Last Filed: 04/20/21 10:56>
[2021-04-20 11:16] LABS: Glucose, Whole Blood 246 mg/dL (60-115)
[2021-04-20] MEDS: Insulin Lispro 100 UNIT/ML 3 ML VIAL SUBCUT ×2 (11:27→17:12)
--- NOTE | 2021-04-20 14:02 | HO.PM.IMPN ---
Subjective Subjective Date of Service: 04/20/21 Interval History: Patient being followed for generalized anasarca, loculated pericardial effusion. This a.m. patient awake alert, see yes to pain but unable to further describe location or severity. Decreased urinary output overnight. Review of Systems Unable to obtain detailed review of system Physical Exam Vital Signs: Vital Signs: Last Vital Signs Temp 97.2 F 04/20/21 11:41 Pulse 83 04/20/21 11:41 Resp 18 04/20/21 11:41 BP 107/59 L 04/20/21 11:41 Pulse Ox 98 04/20/21 11:41 Body Mass Index 22.8 General awake alert,no acute distress, generalized anasarca? Neck + JVD. CVS? regular rate rhythm, Respiratory lungs diminished breath sounds, no respiratory distress, no use of accessory muscles, no wheeze, no rhonchi. Gastrointestinal abdomen soft, nontender, bowel sounds audible, no rigidity. Extremities right upper extremity edema, bilateral lower extremity edema right leg >left, significant dependent edema on back Neuro moving all 4 extremities, speech clear Skin no rash Objective Data Active Medications Acetaminophen (Acetaminophen 325 Mg Tablet) 650 mg PO Q6H PRN PRN Reason: Pain, Mild (Pain Scale 1-3) Last Admin: 04/18/21 21:55 Dose: 650 mg Documented by: KRISS Apixaban (Apixaban 5 Mg Tablet) 5 mg PO BID [facility] Last Admin: 04/20/21 08:55 Dose: 5 mg Documented by: ALIICA Atorvastatin Calcium (Atorvastatin Calcium 10 Mg Tablet) 10 mg PO BEDTIME [facility] Last Admin: 04/19/21 20:47 Dose: 10 mg Documented by: CECI Dextrose (Dextrose 50 % 25 Gm/50 Ml Vial) 25 gm IVPUSH Q15M PRN; Protocol PRN Reason: per Hypoglycemia Standing Ord. Last Admin: 04/12/21 16:25 Dose: 25 gm Documented by: PATO Glucose (Glucose Gel 15 Gm Gel..Gram.) 15 gm PO Q15M PRN; Protocol PRN Reason: per Hypoglycemia Standing Ord. Cefazolin Sodium/Dextrose (Ancef) 2 gm in 50 mls @ 100 mls/hr IV POSTOP [facility] Furosemide 200 mg/ Sodium (Chloride) 100 mls @ 2.5 mls/hr IVCONT .Q24H [facility] Last Admin: 04/20/21 08:54 Dose: 5 mg/hr, 2.5 mls/hr Documented by: ALICIA Insulin Human Lispro (Insulin Lispro 100 Unit/Ml 3 Ml Vial) 0 unit SUBCUT QIDACHS [facility]; Protocol Last Admin: 04/20/21 11:27 Dose: 4 unit Documented by: ALICIA Levothyroxine Sodium (Levothyroxine Sodium 112 Mcg Tablet) 112 mcg PO DAILY@0600 [facility] Last Admin: 04/20/21 06:33 Dose: 112 mcg Documented by: CECI Magnesium Oxide (Magnesium Oxide 400 Mg Tablet) 400 mg PO BID [facility] Last Admin: 04/20/21 08:55 Dose: 400 mg Documented by: ALICIA Melatonin (Melatonin 3 Mg Tablet) 6 mg PO BEDTIME PRN PRN Reason: Insomnia Metoprolol Tartrate (Metoprolol Tartrate 12.5 Mg Halftab) 6.25 mg PO BID [facility] Last Admin: 04/20/21 08:55 Dose: 6.25 mg Documented by: ALICIA Nystatin (Nystatin Cream 15 Gm Tube) 1 appl TOPICAL BID [facility]; Protocol Last Admin: 04/20/21 08:56 Dose: 1 appl Documented by: ALICIA Pharmacy Consult (Consult Rx Perform Med Rec) 1 each MISCELLANE ONCE PRN PRN Reason: Consult order Senna (Sennosides 8.6 Mg Tablet) 17.2 mg PO BEDTIME PRN PRN Reason: Constipation Sitagliptin Phosphate (Sitagliptin Phosphate 25 Mg Tablet) 25 mg PO DAILY [facility] Last Admin: 04/20/21 08:55 Dose: 25 mg Documented by: ALICIA Sodium Chloride (0.9 % Sodium Chloride Flush 3 Ml Syringe) 3 ml IVFLUSH QSHIFT [facility] Last Admin: 04/20/21 08:55 Dose: 3 ml Documented by: ALICIA Vitamin D (Cholecalciferol (Vitamin D3) 25 Mcg Tablet) 25 mcg PO DAILY [facility] Last Admin: 04/20/21 08:55 Dose: 25 mcg Documented by: ALICIA Labs CBC & Chem 7: 04/20/21 04:59 04/20/21 04:59 Labs: Laboratory Results - last 24 hr 04/19/21 04/19/21 04/20/21 16:22 20:15 04:59 MCV 102.2 H MCH 33.5 H MCHC 32.7 RDW 15.5 Plt Count 250 MPV 9.7 Immature Gran % (Auto) 0.6 H Neut % (Auto) 72.6 Lymph % (Auto) 17.6 L [place] % (Auto) 7.3 Eos % (Auto) 1.7 Baso % (Auto) 0.2 Lymph # (Auto) 0.9 L [place] # (Auto) 0.4 Eos # (Auto) 0.1 Baso # (Auto) 0.0 Abs Immat Gran (auto) 0.03 Absolute Neuts (auto) 3.8 Absolute Nucleated RBC 0.000 Nucleated RBC % (auto) 0.0 Anion Gap Estim Creat Clear Calc Estimated GFR POC Glucose 132 H 137 H Random Glucose Calcium TSH 04/20/21 04/20/21 04/20/21 04:59 07:53 11:03 MCV MCH MCHC RDW Plt Count MPV Immature Gran % (Auto) Neut % (Auto) Lymph % (Auto) [place] % (Auto) Eos % (Auto) Baso % (Auto) Lymph # (Auto) [place] # (Auto) Eos # (Auto) Baso # (Auto) Abs Immat Gran (auto) Absolute Neuts (auto) Absolute Nucleated RBC Nucleated RBC % (auto) Anion Gap 13 Estim Creat Clear Calc 49.8 Estimated GFR > 60 POC Glucose 124 H 246 H Random Glucose 182 H Calcium 8.1 L TSH 6.43 H Assessment and Plan (1) Anasarca: Status: Acute (2) Acute on chronic systolic HF (heart failure): Status: Acute (3) Femoral neck fracture: Status: Acute (4) Pericardial effusion: Status: Acute (5) Presence of cardiac pacemaker: Status: Acute (6) Persistent atrial fibrillation: Status: Acute (7) Hypertension: Status: Acute (8) Hypothyroidism: Status: Acute Assessment and Plan: 85F presented with inability to stand due to right hip fracture from fall right hip fracture POD 4 Complaining of pain but unable to tell the location, likely hip will schedule Tylenol, continue eliquis, hematocrit improved to 27.5, hold blood transfusion Spoke with patient's son at bedside he provided consent for blood transfusion if needed Continue out of bed to chair and physical therapy as tolerated Acute on chronic systolic chf, severe pulmonary htn, pericardial effusion, generalized anasarca Persistent generalized edema no significant response with IV Lasix B BP remains low but stable will place patient on IV Lasix drip and follow clinical course, bladder scan 44, not retaining urine Renal function and electrolytes are stable will follow BMP and BNP dailyI/Os, while being diuresed TSH at 6.43 Localize moderate to large pericardial effusion With gently diurese and follow clinical course hold off on of acute intervention at present, discussed treatment plan with patient's daughter healthcare proxy permanent atrial fibrillation Stable ventricular rate on metoprolol, continue Eliquis history of CVA with residual dysphagia, dysarthria cont.NDD2 solids, nectar thick liquids, continue statin and Eliquis ? DM with hypoglycemia due to poor intake Now with hyperglycemia, was on Januvia and metformin at home, will resume low-dose Januvia, continue sliding scale and monitor poc CKD III listed in medical history, creatinine remains within normal range Acute on chronic anemia Hematocrit dropped to 24.8 likely dilutaional, repeat hematocrit improved, follow CBC Drop in hematocrit likely postop, dilutional and inflammatory, will hold off on blood transfusion since patient with significant fluid overload /denies shortness of breath, monitor CBC hypothyroid TSS 6.43 on Synthroid 112 mcg, will increase dose to 125 follow TSH in 6 weeks DNR/DNI Quality Stroke Does the patient have a stroke diagnosis?: No VTE Prior VTE?: No VTE Risk Level:: Medical - moderate - high VTE Device Contraindication: Treatment Not Indicated VTE Drug Contraindication: N/A - Med Ordered
[2021-04-20] MEDS: Acetaminophen 325 MG TABLET 650 MG PO ×2 (14:24→21:51)
[2021-04-20] MEDS: Albumin Human 25 % 100 ML IV (14:25)
--- NOTE | 2021-04-20 16:39 | MHC.CM.PN ---
CALL FROM DR LORENZO IBARRA, WHO STATES THAT HE IS SECONDARY PROXY. COPY OF HCP REQUESTED TO BE EMAILED TO THIS ANIMAL GENETICIST. SON-IN-LAW STATES THAT HE WILL BE HERE TOMORROW, WELL. THIS ANIMAL GENETICIST REMINDED SON-IN-LAW THAT THE CURRENT RESTRICTIONS ONLY ALLOW FOR ONE VISITOR AT A TIME FOR THIS PATIENT DR IBARRA VERBALIZES COMPREHENSION. REQUEST FOR RN TO CALL GIVEN TO RN
[2021-04-20 16:43] LABS: Glucose, Whole Blood 209 mg/dL (60-115)
--- NOTE | 2021-04-20 18:41 | PC.NURSE ---
Pt w/ edema throughout, specifically on the R side (arm and LE), also back and buttock/ jenny area. LSC. pt incontinent of urine x1, very little output noted in purewick suction canister. bladder scanned for 44mL. MD updated/aware and prescribed IV lasix drip. Drip started at 5/hr. tolerating well, but cont with low urine output. will cont to monitor and assess
--- NOTE | 2021-04-20 19:03 | PC.NURSE ---
family questioning abductor pillow for hip precautions. discussed with PA and pt does not require abductor pillow and positioning should be for comfort. relayed MD frausto to pt family, understood with no further questions/ concerns
[2021-04-20 21:29] LABS: Glucose, Whole Blood 136 mg/dL (60-115)
[2021-04-20] MEDS: Atorvastatin Calcium 10 MG TABLET PO (21:51)
[2021-04-21] VITALS: BP 104/65; PULSE 71; RESP 16; TEMP 36.1; O2SAT 100
[2021-04-21] MEDS: Acetaminophen 325 MG TABLET 650 MG PO ×3 (01:24→13:51)
[2021-04-21 04:00] VITALS: BP 114/63; PULSE 80; RESP 16; TEMP 36.1
[2021-04-21] MEDS: Levothyroxine Sodium 125 MCG TABLET PO (05:20)
[2021-04-21 06:24] LABS: MANUAL DIFF FLAG NO
[2021-04-21 06:30] LABS: Basophils Percent Auto 0.4 % (0-2); Eosinophils Absolute Auto 0.1 X10*3/uL (0.0-0.4); Eosinophils Percent Auto 2.6 % (0-4); Hematocrit 28.5 % (37-47); Hemoglobin 8.9 g/dl (12.0-16.0); Imm Gran Abs Auto 0.02 X10*3/uL (0.00-0.03); Imm Gran Pct Auto 0.4 % (0.0-0.4); Lymphocytes Absolute Auto 0.9 X10*3/uL (1.2-4.9); Lymphocytes Percent Auto 17.5 % (20-40); Mean Corpuscular HGB Conc 31.2 g/dl (31.0-35.0); Mean Corpuscular Hemoglobin 32.4 pg (27.0-33.0); Mean Corpuscular Volume 103.6 fL (80-98); Mean Platelet Volume 9.7 fL (9.4-12.3); Monocytes Absolute Auto 0.4 X10*3/uL (0.1-1.2); Monocytes Percent Auto 6.9 % (2-11); Neutrophils Absolute Auto 3.7 X10*3/uL (2.0-8.3); Neutrophils Percent Auto 72.2 % (45-73); Platelet Count 270 X10*3/uL (160-400); Red Blood Count 2.75 X10*6/uL (4.20-5.50); Red Cell Distribution Width 15.4 % (11.0-16.0); White Blood Count 5.1 X10*3/uL (4.8-10.8)
[2021-04-21 06:43] LABS: Anion Gap 13 (12-20); Blood Urea Nitrogen 20 mg/dL (9-16); Calcium 8.4 mg/dL (8.4-10.2); Carbon Dioxide 25 mmol/L (22-29); Chloride 100 mmol/L (96-108); Creatinine Clr Calc Pharmacy 46.3; Estimated Glomerular Filt Rate > 60; Glucose Random 230 mg/dL (60-115); Potassium 4.1 mmol/L (3.3-5.1); Sodium 134 mmol/L (135-145)
[2021-04-21 07:51] LABS: Glucose, Whole Blood 208 mg/dL (60-115)
[2021-04-21 07:51] LABS: Glucose, Whole Blood 195 mg/dL (60-115)
[2021-04-21 08:00] VITALS: BP 111/57; PULSE 89; TEMP 36
[2021-04-21] MEDS: Metoprolol Tartrate 12.5 MG HALFTAB 6.25 MG PO (08:05)
[2021-04-21] MEDS: Cholecalciferol (Vitamin D3) 25 MCG TABLET PO (08:06)
[2021-04-21] MEDS: SITagliptin Phosphate 25 MG TABLET PO (08:06)
[2021-04-21] MEDS: Magnesium Oxide 400 MG TABLET PO (08:06)
[2021-04-21] MEDS: Apixaban 5 MG TABLET PO (08:06)
[2021-04-21] MEDS: Insulin Lispro 100 UNIT/ML 3 ML VIAL SUBCUT ×2 (08:11→11:48)
[2021-04-21 08:28] VITALS: BP 111/57; PULSE 89
[2021-04-21] MEDS: Torsemide 20 MG TABLET 10 MG PO (10:45)
[2021-04-21] MEDS: Nystatin Cream 15 GM TUBE 1 APPL TOPICAL (10:46)
--- NOTE | 2021-04-21 10:54 | P.PNCA_ITS ---
Subjective Subjective Date of Service: 04/21/21 Principal diagnosis: post op ORIF femoral neck, pericardial effusion, chronic afib Interval history: Denying any CP or SOB. Confused. Physical Exam Vital Signs: Last Vital Signs Temp 96.8 F 04/21/21 08:00 Pulse 89 04/21/21 08:28 Resp 16 04/21/21 04:00 BP 111/57 L 04/21/21 08:28 Pulse Ox 100 04/21/21 00:00 Body Mass Index 22.8 GENERAL APPEARANCE: in no acute distress. NECK: no jugular venous distention. SKIN: no suspicious lesions, warm and dry. HEART: no murmurs, regular rate and rhythm. LUNGS: clear to auscultation bilaterally. ABDOMEN: soft, nontender. EXTREMITIES: +edema. Results Labs and Meds Result diagrams: 04/21/21 06:18 04/21/21 06:18 Lab results: Laboratory Results - last 24 hr 04/20/21 04/20/21 04/20/21 11:03 16:33 21:24 WBC RBC Hgb Hct MCV MCH MCHC RDW Plt Count MPV Immature Gran % (Auto) Neut % (Auto) Lymph % (Auto) Frederick % (Auto) Eos % (Auto) Baso % (Auto) Lymph # (Auto) Frederick # (Auto) Eos # (Auto) Baso # (Auto) Abs Immat Gran (auto) Absolute Neuts (auto) Absolute Nucleated RBC Nucleated RBC % (auto) Sodium Potassium Chloride Carbon Dioxide Anion Gap BUN Creatinine Estim Creat Clear Calc Estimated GFR POC Glucose 246 H 209 H 136 H Random Glucose Calcium 04/21/21 04/21/21 04/21/21 06:18 06:18 07:09 WBC 5.1 RBC 2.75 L Hgb 8.9 L Hct 28.5 L MCV 103.6 H MCH 32.4 MCHC 31.2 RDW 15.4 Plt Count 270 MPV 9.7 Immature Gran % (Auto) 0.4 Neut % (Auto) 72.2 Lymph % (Auto) 17.5 L Frederick % (Auto) 6.9 Eos % (Auto) 2.6 Baso % (Auto) 0.4 Lymph # (Auto) 0.9 L Frederick # (Auto) 0.4 Eos # (Auto) 0.1 Baso # (Auto) 0.0 Abs Immat Gran (auto) 0.02 Absolute Neuts (auto) 3.7 Absolute Nucleated RBC 0.000 Nucleated RBC % (auto) 0.0 Sodium 134 L Potassium 4.1 Chloride 100 Carbon Dioxide 25 Anion Gap 13 BUN 20 H Creatinine 0.86 Estim Creat Clear Calc 46.3 Estimated GFR > 60 POC Glucose 195 H Random Glucose 230 H Calcium 8.4 04/21/21 07:37 WBC RBC Hgb Hct MCV MCH MCHC RDW Plt Count MPV Immature Gran % (Auto) Neut % (Auto) Lymph % (Auto) Frederick % (Auto) Eos % (Auto) Baso % (Auto) Lymph # (Auto) Frederick # (Auto) Eos # (Auto) Baso # (Auto) Abs Immat Gran (auto) Absolute Neuts (auto) Absolute Nucleated RBC Nucleated RBC % (auto) Sodium Potassium Chloride Carbon Dioxide Anion Gap BUN Creatinine Estim Creat Clear Calc Estimated GFR POC Glucose 208 H Random Glucose Calcium Progress Note: A&P Assessment and plan (1) Anasarca: Status: Acute (2) Acute on chronic systolic HF (heart failure): Status: Acute (3) Pericardial effusion: Status: Acute Assessment and Plan: 85-year-old female with pericardial effusion and cardiomyopathy. Clinically she has diffuse edema but no JVD. I think Lasix gtt can be stopped and she can be started on Torsemide 20 mg daily. No tamponade physiology on echo or clinically. Will need repeat echo in few weeks as outpatient. Thank you for allowing me to participate in the care of your patient. Please feel free to contact me if you have any questions. Fall Risk Details Current Medications: Current Medications Acetaminophen (Acetaminophen 325 Mg Tablet) 650 mg PO Q6H [facility] Last Admin: 04/21/21 08:06 Dose: 650 mg Documented by: Apixaban (Apixaban 5 Mg Tablet) 5 mg PO BID JYOTSNA Last Admin: 04/21/21 08:06 Dose: 5 mg Documented by: Atorvastatin Calcium (Atorvastatin Calcium 10 Mg Tablet) 10 mg PO BEDTIME JYOTSNA Last Admin: 04/20/21 21:51 Dose: 10 mg Documented by: Dextrose (Dextrose 50 % 25 Gm/50 Ml Vial) 25 gm IVPUSH Q15M PRN; Protocol PRN Reason: per Hypoglycemia Standing Ord. Last Admin: 04/12/21 16:25 Dose: 25 gm Documented by: Glucose (Glucose Gel 15 Gm Gel..Gram.) 15 gm PO Q15M PRN; Protocol PRN Reason: per Hypoglycemia Standing Ord. Cefazolin Sodium/Dextrose (Ancef) 2 gm in 50 mls @ 100 mls/hr IV POSTOP [facility] Insulin Human Lispro (Insulin Lispro 100 Unit/Ml 3 Ml Vial) 0 unit SUBCUT QIDACHS [facility]; Protocol Last Admin: 04/21/21 08:11 Dose: 4 unit Documented by: Levothyroxine Sodium (Levothyroxine Sodium 125 Mcg Tablet) 125 mcg PO DAILY@0600 [facility] Last Admin: 04/21/21 05:20 Dose: 125 mcg Documented by: Magnesium Oxide (Magnesium Oxide 400 Mg Tablet) 400 mg PO BID [facility] Last Admin: 04/21/21 08:06 Dose: 400 mg Documented by: Melatonin (Melatonin 3 Mg Tablet) 6 mg PO BEDTIME PRN PRN Reason: Insomnia Metoprolol Tartrate (Metoprolol Tartrate 12.5 Mg Halftab) 6.25 mg PO BID [facility] Last Admin: 04/21/21 08:05 Dose: 6.25 mg Documented by: Nystatin (Nystatin Cream 15 Gm Tube) 1 appl TOPICAL BID [facility]; Protocol Last Admin: 04/21/21 10:46 Dose: 1 appl Documented by: Pharmacy Consult (Consult Rx Perform Med Rec) 1 each MISCELLANE ONCE PRN PRN Reason: Consult order Senna (Sennosides 8.6 Mg Tablet) 17.2 mg PO BEDTIME PRN PRN Reason: Constipation Sitagliptin Phosphate (Sitagliptin Phosphate 25 Mg Tablet) 25 mg PO DAILY [facility] Last Admin: 04/21/21 08:06 Dose: 25 mg Documented by: Sodium Chloride (0.9 % Sodium Chloride Flush 3 Ml Syringe) 3 ml IVFLUSH QSHIFT [facility] Last Admin: 04/21/21 08:07 Dose: Not Given Documented by: Torsemide (Torsemide 20 Mg Tablet) 10 mg PO DAILY [facility]; Protocol Last Admin: 04/21/21 10:45 Dose: 10 mg Documented by: Vitamin D (Cholecalciferol (Vitamin D3) 25 Mcg Tablet) 25 mcg PO DAILY [facility] Last Admin: 04/21/21 08:06 Dose: 25 mcg Documented by: Time Spent With Patient Time: Total time spent is greater than 50% in coordination of care (as documented) at patient's floor/unit and/or counseling patient: Time with patient: 15 - 24 minutes Progress Note: Quality Stroke Does the patient have a stroke diagnosis?: No Procedures Date of Service Date of Service: 04/21/21
[2021-04-21 11:13] VITALS: BP 104/57; PULSE 95; RESP 18; TEMP 36
[2021-04-21 11:22] LABS: Glucose, Whole Blood 173 mg/dL (60-115)
--- NOTE | 2021-04-21 11:56 | MHC.CM.PN ---
Per MD, Patient has been medically cleared for dc to SNF/LTC today. Patient will return to LTC @ [facility] today at 4PM, via [facility]. YASHIRA spoke with Daughter/Irais at [phone] and addressed IMM with her (original will be mailed certified letter to her and a copy has been placed on the chart). Irais is aware of and in agreement with the dc plan.
--- NOTE | 2021-04-21 11:58 | MHC.INPTTRAN ---
More alert today. still vague and sometimes speaks ? Malian. Understands Cuban as well. Dsg intact on right hip. also hx of CVA with right sam. Very weak. repos with 2 assist. has intact blister on right heel. Fungal rash on groin. VSS wears 02 at 3L via N/C. is on aspiration precautions. Ground diet, with nectalr thick liq. Max assist with all ADL's including eating. Incont of urine Purewick used. H@H stable.
--- NOTE | 2021-04-21 12:11 | MHC.CLN ---
F/U PATIENT SCHEDULED FOR DISCHARGE TODAY. STAGE I TO BUTTOCK NOTED 04/21. PRIOR TO THAT ASSESSMENT, AREA WAS FUNGAL INFECTION. INTAKE USUALLY 0-50%. CONTINUE CURRENT DIET AND SUPPLEMENTS: DIABETIC 1800 KCAL, NDD2, NECTAR THICK LIQUIDS, GLUCERNA TID.
[2021-04-21 12:19] LABS: COVID-19 Test Negative (Negative); IDNOW Serial# 9DD0AD1C
--- NOTE | 2021-04-21 13:15 | P.DS_ITS ---
DS: Providers Provider Date of Service: 04/21/21 Date of admission: 04/11/21 22:48 Primary care physician: Vinny Quezada MD Consults: 04/11/21 22:56 Consult to Cardiology Routine Consulting Provider: Santos Peña Reason for consultation: preop eval; hx afib; cariomegaly on CT. p/w fall/hip fx 04/13/21 08:57 Consult to Anesthesiology Stat Consulting Provider: Saulo Guevara Reason for consultation: right hip sma pre op. Sx Saturday04/14/21 DS: Diagnosis Discharge Diagnosis (1) Anasarca: Status: Acute (2) Acute on chronic systolic HF (heart failure): Status: Acute (3) Pericardial effusion: Status: Acute DS: Summary Hospital Course Hospital Course: History of presenting illness Zahida Caro is a 85 year old female who sustained a mechanical fall about 3 days ago in her home. she has a past medical history significant for a. fib on Eliquis, CAD, CHF, a pacemaker, and DMII. The patient continued to have difficulty with ambulation and pain and presented to the ED. X-rays were obtained of the right hip and she was found to have a femoral neck fracture. She was then admited to the medicine service and orthopedics was consulted for further evaluation and treatment. Hospital course 85F presented with inability to stand due to right hip fracture from fall, patient underwent right sam arthroplasty postoperative day 5, participating with physical therapy, good pain control continue Tylenol for pain, Continue Eliquis. Outpatient follow-up with Orthopedic surgery in 2 weeks During the course of hospitalization patient was also noted to have Acute on chronic systolic chf, severe pulmonary htn, pericardial effusion, generalized anasarca, therefore patient treated with IV Lasix with good response BP remains stable therefore she is being discharged home back to rehab on torsemide home dose recommended high-protein diet and Ensure can, outpatient follow-up with Cardiology Localize moderate to large pericardial effusion noted on echocardiogram, patient seen by bottom steep tender Dr. Hassan there is no evidence of cardiac tamponade patient is hemodynamically stable therefore no surgical intervention was obtained patient was gently diuresed and is clinically stable permanent atrial fibrillation Stable ventricular rate on metoprolol, and Eliquis history of CVA with residual dysphagia, dysarthria cont.NDD2 solids, nectar thick liquids, continue statin and Eliquis ? In regard to diabetes mellitus patient noted to have hypoglycemia likely due to poor by mouth intake, now blood sugars improved will resume home medications recommend to follow blood sugars closely CKD III Creatinine remains stable Acute on chronic anemia Patient noted to have drop in hematocrit likely dilutional from IV fluids and due to surgery, patient did not require blood transfusion repeat hematocrit improved For hypothyroidism, TSH was obtained that is elevated at 6.43 therefore dose of levothyroxine increased to 125 mcg recommend to check TSH in 6 weeks Time Spent with Patient Time attestation: Total time spent providing and/or coordinating discharge services: Discharge coordination time: Greater than 30 minutes Quality: Stroke Does the patient have a stroke diagnosis?: No Physical Exam Vital Signs: Vital Signs: Last Vital Signs Temp 96.8 F 04/21/21 11:13 Pulse 95 04/21/21 11:13 Resp 18 04/21/21 11:13 BP 104/57 L 04/21/21 11:13 Pulse Ox 100 04/21/21 00:00 Body Mass Index 22.8 General awake alert,no acute distress, Neck no JVD, supple CVS? regular rate rhythm, Respiratory lungs diminished breath sounds, no respiratory distress, no use of accessory muscles, no wheeze, no rhonchi. Gastrointestinal abdomen soft, nontender, bowel sounds audible, no rigidity. Extremities lower extremity edema improved, dependent edema of back Neuro moving all 4 extremities, speech clear Skin no rash DS: Data Data Completed and Pending Pending studies at discharge: Pending at discharge 04/16/21 14:02 Surgical [PTH] Routine Labs on day of discharge: Laboratory Results - last 24 hr 04/20/21 04/20/21 04/21/21 16:33 21:24 06:18 WBC 5.1 RBC 2.75 L Hgb 8.9 L Hct 28.5 L MCV 103.6 H MCH 32.4 MCHC 31.2 RDW 15.4 Plt Count 270 MPV 9.7 Immature Gran % (Auto) 0.4 Neut % (Auto) 72.2 Lymph % (Auto) 17.5 L Tate % (Auto) 6.9 Eos % (Auto) 2.6 Baso % (Auto) 0.4 Lymph # (Auto) 0.9 L Tate # (Auto) 0.4 Eos # (Auto) 0.1 Baso # (Auto) 0.0 Abs Immat Gran (auto) 0.02 Absolute Neuts (auto) 3.7 Absolute Nucleated RBC 0.000 Nucleated RBC % (auto) 0.0 Sodium Potassium Chloride Carbon Dioxide Anion Gap BUN Creatinine Estim Creat Clear Calc Estimated GFR POC Glucose 209 H 136 H Random Glucose Calcium COVID-19 (MAHAD) COVID-19 [employer] 04/21/21 04/21/21 04/21/21 06:18 07:09 07:37 WBC RBC Hgb Hct MCV MCH MCHC RDW Plt Count MPV Immature Gran % (Auto) Neut % (Auto) Lymph % (Auto) Tate % (Auto) Eos % (Auto) Baso % (Auto) Lymph # (Auto) Tate # (Auto) Eos # (Auto) Baso # (Auto) Abs Immat Gran (auto) Absolute Neuts (auto) Absolute Nucleated RBC Nucleated RBC % (auto) Sodium 134 L Potassium 4.1 Chloride 100 Carbon Dioxide 25 Anion Gap 13 BUN 20 H Creatinine 0.86 Estim Creat Clear Calc 46.3 Estimated GFR > 60 POC Glucose 195 H 208 H Random Glucose 230 H Calcium 8.4 COVID-19 (MAHAD) COVID-19 [employer] 04/21/21 04/21/21 11:05 11:50 WBC RBC Hgb Hct MCV MCH MCHC RDW Plt Count MPV Immature Gran % (Auto) Neut % (Auto) Lymph % (Auto) Tate % (Auto) Eos % (Auto) Baso % (Auto) Lymph # (Auto) Tate # (Auto) Eos # (Auto) Baso # (Auto) Abs Immat Gran (auto) Absolute Neuts (auto) Absolute Nucleated RBC Nucleated RBC % (auto) Sodium Potassium Chloride Carbon Dioxide Anion Gap BUN Creatinine Estim Creat Clear Calc Estimated GFR POC Glucose 173 H Random Glucose Calcium COVID-19 (MAHAD) Negative COVID-19 Clin Com See Note Discharge Plan Discharge Patient Disposition: er [facility] Discharge Diagnosis: Status post right femur hemiarthroplasty Acute on chronic systolic congestive Heart failure Anasarca Moderate to large pericardial effusion Permanent atrial fibrillation Acute on chronic anemia [facility]: [facility] [Outside] - 1 Week Mariusz Mock PA-C [Physician Senior Marketing Specialist] - 2 Weeks Vinny Quezada MD [Primary Care Provider] - 1 Week Discharge Medications: New levothyroxine 125 mcg Tablet 125 mcg PO DAILY@0600 Qty: 30 RF: 0 Continued metformin 500 mg tablet 500 mg PO BID RF: 0 torsemide 10 mg tablet 10 mg PO DAILY RF: 0 bisoprolol fumarate 5 mg tablet 1.25 mg PO DAILY RF: 0 simvastatin 20 mg tablet 20 mg PO BEDTIME RF: 0 insulin lispro 100 unit/mL insulin pen See Protocol RF: 0 Januvia 50 mg tablet 50 mg PO DAILY RF: 0 Eliquis 5 mg tablet 5 mg PO BID RF: 0 miconazole nitrate 2 % Cream 1 appl TOPICAL BID RF: 0 ondansetron HCl [Zofran] 4 mg Tablet 4 mg PO Q6H PRN (Reason: Nausea) RF: 0 cholecalciferol (vitamin D3) [Vitamin D3] 25 mcg (1,000 unit) Tablet 25 mcg PO DAILY RF: 0 magnesium oxide 400 mg magnesium Tablet 400 mg PO BID RF: 0 acetaminophen 500 mg Tablet 500 mg PO Q8H PRN (Reason: Pain) RF: 0 calcium carbonate 500 mg calcium (1,250 mg) Tablet 500 mg PO BID RF: 0 Discontinued levothyroxine 112 mcg tablet 112 mcg PO DAILY RF: 0 Discharge Orders: Discharge Order (Routine); Ordered 04/21/21 Ordered By: Ned Stewart Diet: diabetic diet and regular diet Activity on Discharge: As tolerated Stand Alone Forms: Patient Portal Discharge page Care Plan Goals: Restore function of joint Health Concerns: Pericardial effusion, no intervention required, anasarca improved take Ensure 2- 3 times a day, resume all home medication, hypothyroidism dose of Synthroid increase check TSH in 6 weeks Plan of Treatment: Gait training, strengthening, ADLs Continue anticoagulant Keep dressing clean,dry and intact-no showering or tub baths Follow up with Orthopedics in 2 weeks Assessment: Follow-up with primary care physician in 1-2 weeks, check TSH in 6 weeks
[2021-04-21 15:34] VITALS: BP 113/62; PULSE 91; RESP 16; TEMP 36.5; O2SAT 97
[2021-04-21 16:26] LABS: Glucose, Whole Blood 101 mg/dL (60-115)
== END 2021-04-21 16:27 | disposition skilled nursing facility (03) | DRG 521 ==
LOC: HO.ED 22:52 → HO.EDOVER 23:00 → HO.S3 23:09
PROVIDERS: Internal Medicine; Internal Medicine Pulmonary Disease; Nurse Practitioner Family; Orthopaedic Surgery; Physician Assistant; Admitting Provider Hospitalist; Emergency Provider Internal Medicine; PCP Family Medicine; Visit Provider Hospitalist
PROC: (CPT 27125; principal; 2021-04-14 14:50)
PROC: 0SRR0JA Replacement of Right Hip Joint, Femoral Surface with Synthetic Substitute, Uncemented, Open Approach (ICD-10-PCS; CPT 27125; principal; 2021-04-16 11:30)
DX: S72.041A Displaced fracture of base of neck of right femur, initial encounter for closed fracture (principal); I50.23 Acute on chronic systolic (congestive) heart failure; I48.19 Other persistent atrial fibrillation; I13.0 Hypertensive heart and chronic kidney disease with heart failure and stage 1 through stage 4 chronic kidney disease, or unspecified chronic kidney disease; I31.3 Pericardial effusion (noninflammatory); E03.9 Hypothyroidism, unspecified; Z20.822 Contact with and (suspected) exposure to COVID-19; Z95.0 Presence of cardiac pacemaker; W18.30XA Fall on same level, unspecified, initial encounter; Y92.129 Unspecified place in nursing home as the place of occurrence of the external cause; E11.22 Type 2 diabetes mellitus with diabetic chronic kidney disease; N18.30 Chronic kidney disease, stage 3 unspecified; I69.891 Dysphagia following other cerebrovascular disease; D63.1 Anemia in chronic kidney disease; R13.10 Dysphagia, unspecified; R60.1 Generalized edema; E11.649 Type 2 diabetes mellitus with hypoglycemia without coma; I27.20 Pulmonary hypertension, unspecified; D64.89 Other specified anemias; I95.9 Hypotension, unspecified; Z79.4 Long term (current) use of insulin; Z79.01 Long term (current) use of anticoagulants; Z79.890 Hormone replacement therapy; Z79.899 Other long term (current) drug therapy; Z66 Do not resuscitate
CPT/HCPCS: 36415; 70450; 71045; 72125; 73502; 73630; 80048; 81001; 82040; 82947; 83735; 83880; 84443; 84484; 85025; 85027; 85610; 85730; 86850; 86900; 86901; 87040; 87635; 88304; 88305; 88311; 93005; 93306; 93308; 97110; 97162; 97166; 97530; 97535; 99285; C1758; C1776; J0131; J0690; J0692; J1100; J1650; J1940; J2370; J2405; J3010; J3430; P9017; P9047

== ENCOUNTER 2021-04-17 01:09 | Outpatient (REF) | payer MEDICARE, MEDICAID, SELFPAY | END 2021-04-17 01:10 | disposition home or self-care (01) | LOC: HO.MMNH1L 01:09 | PROVIDERS: Visit Provider Family Medicine | DX: Z13.89 Encounter for screening for other disorder (principal) ==

== ENCOUNTER 2021-05-01 11:05 | Outpatient (REF) | payer MEDICARE, MEDICAID, SELFPAY ==
--- NOTE | ~2021-05-01 | XR_ITS ---
EXAMINATION: XR HIP, RIGHT CLINICAL INFORMATION: Right hip pain. COMPARISON: Right hip radiographs dated 04/11/2021. TECHNIQUE: Two views of the right hip. FINDINGS: The patient is status post right hip arthroplasty showing good anatomic alignment with no evidence for hardware malfunction. There is no acute fracture. The right hemipelvis is intact. Multiple surgical skin jan overlie the soft tissues laterally. XR/XR hip RT min 2V IMPRESSION: No right hip hardware abnormality. No acute fracture.
== END 2021-05-01 11:06 | disposition home or self-care (01) ==
LOC: HO.HOSX 11:05
PROVIDERS: Visit Provider Physician Assistant
DX: M25.551 Pain in right hip (principal)
CPT/HCPCS: 73502

== ENCOUNTER 2021-05-15 08:05 | Outpatient (REF) | payer SELFPAY | END 2021-05-15 08:06 | disposition home or self-care (01) | LOC: HO.MMNH1L 08:05 | PROVIDERS: Visit Provider Family Medicine | DX: Z13.89 Encounter for screening for other disorder (principal) ==

== ENCOUNTER 2021-05-29 00:34 | Outpatient (REF) | payer MEDICARE, MEDICAID, SELFPAY | END 2021-05-29 00:35 | disposition home or self-care (01) | LOC: HO.MMNH2L 00:34 | PROVIDERS: Visit Provider Family Medicine | DX: Z13.89 Encounter for screening for other disorder (principal) ==

== ENCOUNTER 2021-06-01 09:14 | Outpatient (REF) | payer MEDICARE, MEDICAID, SELFPAY | END 2021-06-01 09:15 | disposition home or self-care (01) | LOC: HO.HOSX 09:14 | PROVIDERS: Visit Provider Physician Assistant | DX: Z13.89 Encounter for screening for other disorder (principal) ==